=== PATIENT | male | born 1945 | race Caucasian/White ===

== ENCOUNTER 2016-08-05 09:22 | Outpatient (RCR) | payer MEDICARE ==
[~2016-08-05 09:22] MED LIST: APIX5TAB PO; ASPI-586 PO; ATOR10TA66 PO; CITA20TA12 PO; CITA40TA11 PO; HYDR-3730 PO; HYDR-3816 PO; LEVO500T2 PO; LEVO500T80 PO; LORA-877 PO; MELO15TA39 PO
[2016-11-04] MEDS ORDERED: OMEP20CA12 PO (10:35)
[2016-11-04] MEDS ORDERED: SUCR1TAB PO (10:35)
== END 2016-10-06 | disposition home or self-care (01) ==
LOC: CARD 09:22
PROVIDERS: ATTEND Internal Medicine Interventional Cardiology
DX: I63.9 Cerebral infarction, unspecified (principal); R06.09 Other forms of dyspnea
CPT/HCPCS: 93270

== ENCOUNTER → 2016-08-18 | Day surgery (SDC) | payer MEDICARE ==
[~2016-08-18] VITALS: Ht 185.4 cm; Wt 87.6 kg
[~2016-08-18] MED LIST changes: +ACET-93 PO; +ASPI-983 PO; +ATOR40TA PO; +ATOR40TA70 PO; +CLOP75TA28 PO; +CLOP75TA69 PO; +LIDOCAINE 1% INJ 20 ML (XYLOCAINE) VIAL ONE; +LISI-556 PO; +METO-333 PO; +MULT1TAB69 PO; +OMEP20CA12 PO; +OMEP20TA33 PO; +PANT40TA2 PO; +PANT40TA3 PO; +SUCR1TAB PO
[2016-08-18 13:07] VITALS: BP 146/96
--- NOTE | 2016-08-19 08:42 | PROCEDURE REPORT ---
PROCEDURE PHYSICIAN: LA JACKSON IMPLANTABLE LOOP RECORDER REPORT DATE OF PROCEDURE: 08/18/2016 REFERRING PHYSICIAN: Dr. Gregg Matthews INDICATION: CVA, cryptogenic in nature, suspicion/high risk for atrial fibrillation. Negative 30 day event monitor. 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 POSTOPERATIVE DIAGNOSES: Status post implantation of LINQ loop recorder. PROCEDURE DETAILS: The patient is 71-year-old gentleman who had presented with CVA. Work-up did not show any etiology for the CVA and the CVA was labeled as a cryptogenic. 30 day event monitor was placed due to a high risk for atrial fibrillation. The 30 day event monitor did not reveal any atrial fibrillation. Therefore for meterman monitoring of atrial fibrillation an implantable loop recorder was indicated. Informed consent was taken. All risks and complications were discussed at length. The patient was draped and prepped in the usual sterile fashion. Local anesthesia was with lidocaine, which was given in the substernal area close to the 4th intercostal space. The LINQ loop monitor was implanted according to the protocol. Steri-Strips were placed at the end of the procedure. There were no complications and the patient tolerated the procedure well. The device was interrogated with the voltage of 0.81 mV. ANESTHESIA: Local anesthesia with lidocaine. COMPLICATIONS: None. Contrast/fluoroscopy: None. CONCLUSION: 1. Successful implantation of LINQ loop recorder for cryptogenic stroke and surveillance of atrial fibrillation. 2. No complication and the patient tolerated the procedure well Job ID: [id number] Dictated Date: 08/18/2016 16:28:05 Community Dietitian Date: 08/19/2016 08:36:01 / immanuel TOLEDO
== END ==
LOC: CATH 12:32
PROVIDERS: ATTEND Internal Medicine Interventional Cardiology
DX: I63.9 Cerebral infarction, unspecified (principal); I48.91 Unspecified atrial fibrillation; Z79.899 Other long term (current) drug therapy; Z79.01 Long term (current) use of anticoagulants
CPT/HCPCS: 33282

== ENCOUNTER 2016-11-03 11:51 | Inpatient (IN) | payer MEDICARE ==
[2016-11-03] VITALS (16 sets, daily range): BP systolic 100–142; BP diastolic 57–86
[~2016-11-03] VITALS: Ht 182.9 cm; Wt 86.6 kg
[~2016-11-03 11:51] MED LIST changes: -ACET-93 PO; -ASPI-983 PO; -ATOR40TA PO; -ATOR40TA70 PO; -CLOP75TA28 PO; -CLOP75TA69 PO; -LIDOCAINE 1% INJ 20 ML (XYLOCAINE) VIAL ONE; -LISI-556 PO; -METO-333 PO; -MULT1TAB69 PO; -OMEP20CA12 PO; -OMEP20TA33 PO; -PANT40TA2 PO; -PANT40TA3 PO; -SUCR1TAB PO
[2016-11-03] MEDS ORDERED: ONDANSETRON 4 MG/2 ML (SDV) Z0FRAN ONE (12:30)
[2016-11-03] MEDS ORDERED: NS IV 1000 ML 1,000 ML ONE ×2 (12:31→13:42)
[2016-11-03] MEDS ORDERED: PANTOPRAZOLE 40 MG/10 ML (PROTONIX) VIAL ONE ×2 (12:31→12:33)
[2016-11-03 12:43] LABS: BASOPHILS % (AUTO) 0 % (0-10); EOSINOPHILS % (AUTO) 0 % (0-10); LYMPHOCYTES # (AUTO) 2.1 X 10^3 (1.0-4.0); LYMPHOCYTES % (AUTO) 14 % (12-44); MEAN CORPUSCULAR HEMOGLOBIN 32 PG (25-34); MEAN CORPUSCULAR HGB CONC 33 G/DL (32-36); MEAN CORPUSCULAR VOLUME 97 FL (80-99); MEAN PLATELET VOLUME 10.4 FL (7.4-10.4); MONOCYTES # (AUTO) 0.7 X 10^3 (0.0-1.0); MONOCYTES % (AUTO) 4 % (0-12); NEUTROPHILS # (AUTO) 12.8 X 10^3 (1.8-7.8); NEUTROPHILS % (AUTO) 82 % (42-75); PLATELET COUNT 249 10^3/uL (130-400); RED BLOOD COUNT 2.68 10^6/uL (4.35-5.85); RED CELL DISTRIBUTION WIDTH 14.1 % (10.0-14.5); WHITE BLOOD COUNT 15.6 10^3/uL (4.3-11.0)
[2016-11-03] MEDS ORDERED: ONDANSETRON 4 MG/2 ML (SDV) Z0FRAN IVP ONE (12:45)
[2016-11-03] MEDS ORDERED: PANTOPRAZOLE 40 MG/10 ML (PROTONIX) VIAL IV ONE (12:45)
[2016-11-03 12:49] LABS: INR 1.2 (0.8-1.4)
[2016-11-03 12:56] LABS: ALANINE AMINOTRANSFERASE 19 U/L (0-55); ALBUMIN 3.6 G/DL (3.2-4.5); ANION GAP 5 MMOL/L (5-14); ASPARTATE AMINO TRANSFERASE 65 U/L (5-34); BILIRUBIN,TOTAL 0.3 MG/DL (0.1-1.0); BLOOD UREA NITROGEN 43 MG/DL (7-18); BUN/CREATININE RATIO 37; CALCIUM 8.8 MG/DL (8.5-10.1); CARBON DIOXIDE 29 MMOL/L (21-32); CHLORIDE 108 MMOL/L (98-107); CREATININE SERUM 1.15 MG/DL (0.60-1.30); GFR ESTIMATED > 60; GLUCOSE 149 MG/DL (70-105); MAGNESIUM 1.8 MG/DL (1.8-2.4); POTASSIUM 4.3 MMOL/L (3.6-5.0); SODIUM 142 MMOL/L (135-145); TOTAL PROTEIN 5.9 G/DL (6.4-8.2)
[2016-11-03 13:05] LABS: TROPONIN I 9.21 NG/ML (<0.30)
--- NOTE | 2016-11-03 13:13 | Diagnostic Imaging Report ---
INDICATION: GI bleed, black stools. Comparison study: Chest from 07/08/2016. FINDINGS: Frontal view of the chest demonstrates lungs to be clear. The heart size and vascularity are normal. There are no pleural effusions. Previous bibasilar infiltrates are clear. personnel monitor is in place. IMPRESSION: There are no acute findings. Previous bibasilar infiltrates have cleared. Dictated by: Dictated on workstation # [id number]
[2016-11-03 13:17] LABS: ANISOCYTOSIS SLIGHT; BAND NEUTROPHILS 3 %; BASOPHILS % (MANUAL) 0 %; EOSINOPHILS % (MANUAL) 0 %; LYMPHOCYTES % (MANUAL) 20 %; NEUTROPHILS % (MANUAL) 74 %
--- NOTE | 2016-11-03 13:27 | ED GI ---
General Chief Complaint: Abdominal/GI Problems Stated Complaint: BLACK STOOL Source of Information: Patient Exam Limitations: No Limitations History of Present Illness Time Seen By Provider: 13:00 Initial Comments Here with report of onset of black stools 2-3 days ago. Seen by his primary care provider at that time and had his moped taken aspirin stopped. Today, early this morning, he had coffee-ground emesis. He was later able to eat a little bit and has not had return of emesis since. He still has black stools. He had a hemoglobin of 11.22 days ago for his primary care provider. He does complain of some bilateral shoulder pain as well as mid chest pain earlier that has gotten better now. Denies fever or chills. Does admit to weakness. Timing/Duration: 3-4 Days, Getting Worse, Intermittent Severity/Quality: Mild, Aching Location: Epigastric Radiation: Chest Activities at Onset: None Associated Symptoms: No Back Pain, Chest Pain, No Diaphoresis, No Fever/Chills , Nausea/Vomiting, No Shortness of Air, Weakness Allergies and Home Medications Allergies Coded Allergies: No Known Drug Allergies (Unverified , 07/01/16) Home Medications Atorvastatin Calcium 10 Mg Tablet, 10 MG PO HS, #30 Prescribed by: ALLEN MALLOY on 07/08/16 1154 Citalopram Hydrobromide 40 Mg Tablet, 40 MG PO DAILY, (Reported) Omeprazole 20 Mg Capsule.dr, 20 MG PO DAILY, (Reported) Review of Systems Constitutional: see HPI, No chills, No fever EENTM: No Symptoms Reported Respiratory: No Symptoms Reported Cardiovascular: See HPI, Chest Pain, Denies Edema Gastrointestinal: Abdominal Pain, Nausea, Rectal Bleeding, Vomiting Genitourinary: No Symptoms Reported Musculoskeletal: no symptoms reported Skin: no symptoms reported All Other Systems Reviewed Negative Unless Noted: Yes Past Ehoctyy-Lutxdj-Cauupr Hx Patient Social History Alcohol Use: Denies Use Recreational Drug Use: No Smoking Status: Unknown if Ever Smoked Recent Foreign Travel: No Contact w/Someone Who Travel: No Recent Hopitalizations: No Immunizations Up To Date Tetanus Booster (TDap): Less than 5yrs PED Vaccines UTD: No Date of Pneumonia Vaccine: Jul 01, 2013 Date of Influenza Vaccine: Jun 07, 2016 Seasonal Allergies Seasonal Allergies: Yes Surgeries HX Surgeries: Yes (HERNIA REPAIR) Surgeries: Abdominal Respiratory Hx Respiratory Disorders: No Cardiovascular Hx Cardiac Disorders: No Neurological Hx Neurological Disorders: No Reproductive System Hx Reproductive Disorders: No Genitourinary Hx Genitourinary Disorders: No Gastrointestinal Hx Gastrointestinal Disorders: No Musculoskeletal Hx Musculoskeletal Disorders: Yes Musculoskeletal Disorders: Arthritis Endocrine Hx Endocrine Disorders: No HEENT HX ENT Disorders: Yes Hearing Impairment: Bilateral Hearing Aide Cancer Hx Cancer: No Psychosocial Hx Psychiatric Problems: Yes Behavioral Health Disorders: Depression Integumentary HX Skin/Integumentary Disorder: No Blood Transfusions Hx Blood Disorders: No Family Medical History Family Medial History: Alcoholism G8 BROTHER, Onset:Unknown Cardiovascular disease 19 FATHER, , Age:89, Onset:Unknown G8 BROTHER, Onset:Unknown Completed stroke 19 MOTHER, , Age:86, Onset:Unknown FH: bladder cancer 19 MOTHER, , Age:86, Onset:Unknown FH: lupus G8 SISTER, , Age:75, Onset:Unknown FH: smoking G8 BROTHER, Onset:Unknown Parkinson's disease 19 MOTHER, , Age:86, Onset:Unknown Physical Exam Vital Signs VS - Last 72 Hours, by Label 11/03/16 11/03/16 11/03/16 11/03/16 11:55 11:55 13:59 14:14 Temp 97.9 99.8 99.5 Pulse 89 83 87 Resp 18 18 16 B/P (MAP) 111/71 120/76 122/86 Pulse Ox 97 99 99 96 O2 Delivery Nasal Cannula O2 Flow Rate 2.00 Capillary Refill : General Appearance: no apparent distress, thin HEENT: PERRL/EOMI, pharynx normal, pale conjunctivae (R), pale conjunctivae (L) Neck: full range of motion, supple Respiratory: lungs clear, normal breath sounds Cardiovascular: regular rate, rhythm, no murmur Gastrointestinal: non tender, soft Extremities: non-tender, normal inspection Back: normal inspection, no CVA tenderness, no vertebral tenderness Neurologic/Psychiatric: alert, oriented x 3 Skin: warm/dry, pallor Progress/Results/Core Measures Results/Orders Lab Results Laboratory Tests Test 11/03/16 12:22 Range/Units White Blood Count 15.6 H 4.3-11.0 10^3/uL Red Blood Count 2.68 L 4.35-5.85 10^6/uL Hemoglobin 8.6 L 13.3-17.7 G/DL Hematocrit 26 L 40-54 % Mean Corpuscular Volume 97 80-99 FL Mean Corpuscular Hemoglobin 32 25-34 PG Mean Corpuscular Hemoglobin Concent 33 32-36 G/DL Red Cell Distribution Width 14.1 10.0-14.5 % Platelet Count 249 130-400 10^3/uL Mean Platelet Volume 10.4 7.4-10.4 FL Neutrophils (%) (Auto) 82 H 42-75 % Lymphocytes (%) (Auto) 14 12-44 % Monocytes (%) (Auto) 4 0-12 % Eosinophils (%) (Auto) 0 0-10 % Basophils (%) (Auto) 0 0-10 % Neutrophils # (Auto) 12.8 H 1.8-7.8 X 10^3 Lymphocytes # (Auto) 2.1 1.0-4.0 X 10^3 Monocytes # (Auto) 0.7 0.0-1.0 X 10^3 Eosinophils # (Auto) 0.0 0.0-0.3 10^3/uL Basophils # (Auto) 0.0 0.0-0.1 10^3/uL Neutrophils % (Manual) 74 % Lymphocytes % (Manual) 20 % Monocytes % (Manual) 3 % Eosinophils % (Manual) 0 % Basophils % (Manual) 0 % Band Neutrophils 3 % Anisocytosis SLIGHT Prothrombin Time 15.0 H 12.2-14.7 SEC INR Comment 1.2 0.8-1.4 Activated Partial Thromboplast Time 32 24-35 SEC Sodium Level 142 135-145 MMOL/L Potassium Level 4.3 3.6-5.0 MMOL/L Chloride Level 108 H 98-107 MMOL/L Carbon Dioxide Level 29 21-32 MMOL/L Anion Gap 5 5-14 MMOL/L Blood Urea Nitrogen 43 H 7-18 MG/DL Creatinine 1.15 0.60-1.30 MG/DL Estimat Glomerular Filtration Rate > 60 BUN/Creatinine Ratio 37 Glucose Level 149 H 70-105 MG/DL Calcium Level 8.8 8.5-10.1 MG/DL Magnesium Level 1.8 1.8-2.4 MG/DL Total Bilirubin 0.3 0.1-1.0 MG/DL Aspartate Amino Transf (AST/SGOT) 65 H 5-34 U/L Alanine Aminotransferase (ALT/SGPT) 19 0-55 U/L Alkaline Phosphatase 49 40-136 U/L Troponin I 9.21 *H <0.30 NG/ML Total Protein 5.9 L 6.4-8.2 G/DL Albumin 3.6 3.2-4.5 G/DL My Orders Orders - ANAND VEGA MD Ondansetron Injection (Zofran Injectio (11/03/16 12:30) Ns Iv 1000 Ml (Sodium Chloride 0.9%) (11/03/16 12:31) Pantoprazole Injection (Protonix Injecti (11/03/16 12:31) Cbc With Automated Diff (11/03/16 12:31) Comprehensive Metabolic Panel (11/03/16 12:31) Magnesium (11/03/16 12:31) Protime With Inr (11/03/16 12:31) Partial Thromboplastin Time (11/03/16 12:31) Troponin I (11/03/16 12:31) Chest 1 View, Ap/Pa Only (11/03/16 12:31) Ekg Tracing (11/03/16 12:31) O2 (11/03/16 12:31) Monitor-Rhythm Ecg Trace Only (11/03/16 12:31) Ondansetron Injection (Zofran Injectio (11/03/16 12:45) Saline Lock/Iv-Start (11/03/16 12:31) Pantoprazole Injection (Protonix Injecti (11/03/16 12:45) Pantoprazole Injection (Protonix Injecti (11/03/16 12:33) Manual Differential (11/03/16 12:22) Red Cells Leukocytes Reduced (11/03/16 12:45) Type And Screen (11/03/16 12:45) Ns (Ivpb) (Sodium C... W/Pantoprazole In (11/03/16 13:30) Ns Iv 1000 Ml (Sodium Chloride 0.9%) (11/03/16 13:42) Medications Given in ED Current Medications Medications Dose Ordered Sig/Pa Route Start Time Stop Time Status Last Admin Dose Admin Ondansetron HCl 4 mg ONCE ONCE IVP 11/03/16 12:45 11/03/16 12:46 DC 11/03/16 12:38 4 MG Pantoprazole 80 mg ONCE ONCE IV 11/03/16 12:45 11/03/16 12:46 DC 11/03/16 12:39 80 MG Sodium Chloride 1,000 ml @ ud STK-MED ONCE .ROUTE 11/03/16 12:31 11/03/16 12:35 DC 11/03/16 12:38 999 MLS/HR Sodium Chloride 1,000 ml @ ud STK-MED ONCE .ROUTE 11/03/16 13:42 11/03/16 13:48 DC 11/03/16 13:49 0 MLS/HR Vital Signs/I&O Vital Sign - Last 12Hours 11/03/16 11/03/16 11/03/16 11/03/16 11:55 11:55 13:59 14:14 Temp 97.9 99.8 99.5 Pulse 89 83 87 Resp 18 18 16 B/P (MAP) 111/71 120/76 122/86 Pulse Ox 97 99 99 96 O2 Delivery Nasal Cannula O2 Flow Rate 2.00 Progress Note : Progress Note Seen and evaluated. IV 2, labs, EKG and chest x-ray ordered. Troponin noted to be markedly elevated. Type and cross for 2 units done. I did discuss the case with Dr. Walton at 1300 and patient was seen with him at that time. He will admit the patient to the ICU, inpatient status. Dr. Kc was also consulted. He saw the patient at 1440. Patient does have findings of non-ST elevation VT. 2 units of blood transfusion was initiated in the ER and will be completed in the ICU. Patient will get upper endoscopy's afternoon and potentially lower endoscopy as needed per Dr. Rae. Patient denies any current chest pain. We were unable to do aspirin due to GI bleed. Both admitting physicians agreed. Patient stable with blood administration. Admit, inpatient status. Patient and family agree with plan. ECG Initial ECG Impression Date: Nov 03, 2016 Initial ECG Impression Time: 12:29 Initial ECG Rate: 86 Initial ECG Rhythm: Normal Sinus Comment Sinus rhythm with normal axis. T-wave under mild is in the anterior lateral leads. No evidence of ST elevation VT. No previous available for comparison. Interpreted by me. EKG reviewed by Dr. Kc Diagnostic Imaging Diagonstic Imaging: Xray Plain Films/CT/US/NM/MRI: chest Comments VIA [facility]. [place], [place] NAME: EVA DILLARD [facility] REC#: [id number] PT STATUS: REG ER : 1945 PHYSICIAN: ANAND VEGA MD ADMIT DATE: 11/03/16/ER Draft Date of Exam:11/03/16 CHEST 1 VIEW, AP/PA ONLY INDICATION: GI bleed, black stools. Comparison study: Chest from 07/08/2016. FINDINGS: Frontal view of the chest demonstrates lungs to be clear. The heart size and vascularity are normal. There are no pleural effusions. Previous bibasilar infiltrates are clear. electrical prospector is in place. IMPRESSION: There are no acute findings. Previous bibasilar infiltrates have cleared. Dictated on workstation # [id number] Dict: 11/03/16 1310 Trans: 11/03/16 1313 MIKE [id number] Interpreted by: ERIN LUNA MD Electronically signed by: Departure Impression Impression: Primary Impression: Upper GI bleed Additional Impression: Non-ST elevation VT (NSTEMI) Departure-Patient Inst. Referrals: ALFIE CASTAÑEDA MD (PCP/Family) Primary Care Physician ANAND VEGA MD Nov 03, 2016 13:27
[2016-11-03] MEDS ORDERED: PANTOPRAZOLE INJECTION 200 MG in NS (IVPB) 50 ML IV SCH (13:30)
[2016-11-03] MEDS ORDERED: OMEP20TA33 PO (13:57)
--- NOTE | 2016-11-03 14:36 | Consultation-Cardiology ---
HPI-Cardiology Cardiology Consultation: Date of Consultation 11/03/16 Date of Admission Attending Physician Chito Walton DO Admitting Physician Gregg Matthews MD Consulting Physician Liliana KC MD HPI: Chief Complaint: Upper GI bleeding This is a 71-year-old gentleman with previous history of stroke. Since the stroke was labeled cryptogenic stroke with decided to treat him for atrial fibrillation with oral anticoagulation therapy with Eliquis. Implantable loop recorder was placed. However after frequent device interrogations, no episodes of atrial fibrillation were noted. Therefore Eliquis was discontinued a while back. He was continued on aspirin. He was taking meloxicam for joint pain. On Monday he started to have black stools. Meloxicam was discontinued. However today he started to have coffee ground emesis. He also complained of bilateral shoulder discomfort and epigastric discomfort. Troponins are positive. Review of Systems-Cardiology Review of Systems Constitutional: No As described under HPI, No no symptoms reported, No chills, No fever, No lightheadedness, No malaise, No tiredness, No weight loss, No weight gain, No other Eyes: No As described under HPI, No no symptoms reported, No blindness, No blurred vision, No contact lenses, No drainage, No decreased acuity, No foreign body sensation, No glasses, No inflammation, No pain, No photophobia, No previous injury, No shadows, No tunnel vision, No other, No vision change Ears/Nose/Throat: No As described under HPI, No no symptoms reported, No chronic hearing loss, No epistaxis, No ear discharge, No ear pain, No loose teeth, No mouth pain, No mouth swelling, No nasal drainage, No nose pain, No recent hearing loss, No throat pain, No throat swelling, No ulcerations, No other Respiratory: No no symptoms reported, No As described under HPI, No cough, No orthopnea, No shortness of breath, No SOB with excertion, No SOB at rest, No stridor, No wheezing, No other Cardiovascular: No no symptoms reported, No As described under HPI, No chest pain, No edema, No irregular heart rate, No lightheadedness, No palpitations, No syncope, No other Gastrointestinal: As described under HPI, abdominal pain Genitourinary: No no symptoms reported, No As described under HPI, No burning, No dysuria, No discharge, No frequency, No flank pain, No hematuria, No incontinence, No pain, No urgency, No other, No urine frequency changes, No urine coloration changes Musculoskeletal: joint pain Skin: No no symptoms reported, No As described under HPI, No change in color, No change in hair/nails, No dryness, No lesions, No lumps, No rash, No other, No skin related problems, No ulcerations, No rash on exposed areas, No ulcerations on exposed areas Psychiatric/Neurological: No As described under HPI, No anxiety, No depression , No emotional problems, No focal weakness, No headache, No no symptoms reported , No numbness, No other, No pre-existing deficit, No seizure, No syncope, No tingling, No tremors, No weakness Hematologic: anemia STO-Oamjdy-Weeuqu Hx Patient Social History Alcohol Use: Denies Use Recreational Drug Use: No Smoking Status: Never a Smoker Recent Foreign Travel: No Recent Infectious Disease Expo: No Immunizations Up To Date Tetanus Booster (TDap): Less than 5yrs Date of Pneumonia Vaccine: Jul 01, 2013 Date of Influenza Vaccine: Jun 07, 2016 Past Medical History PMH As described under Assessment. Family Medical History Family History: Alcoholism G8 BROTHER, Onset:Unknown Cardiovascular disease 19 FATHER, , Age:89, Onset:Unknown G8 BROTHER, Onset:Unknown Completed stroke 19 MOTHER, , Age:86, Onset:Unknown FH: bladder cancer 19 MOTHER, , Age:86, Onset:Unknown FH: lupus G8 SISTER, , Age:75, Onset:Unknown FH: smoking G8 BROTHER, Onset:Unknown Parkinson's disease 19 MOTHER, , Age:86, Onset:Unknown Allergies and Home Medications Allergies Coded Allergies: No Known Drug Allergies (Unverified , 07/01/16) Home Medications Atorvastatin Calcium 10 Mg Tablet, 10 MG PO HS, #30 Prescribed by: ALLEN MALLOY on 07/08/16 1154 Citalopram Hydrobromide 40 Mg Tablet, 40 MG PO DAILY, (Reported) Omeprazole 20 Mg Capsule.dr, 20 MG PO DAILY, (Reported) Physical Exam-Cardiology Physical Exam Vital Signs/I&O Vital Sign - Last 12Hours 11/03/16 11/03/16 11/03/16 11/03/16 11:55 11:55 13:59 14:14 Temp 97.9 99.8 99.5 Pulse 89 83 87 Resp 18 18 16 B/P (MAP) 111/71 120/76 122/86 Pulse Ox 97 99 99 96 O2 Delivery Nasal Cannula O2 Flow Rate 2.00 Capillary Refill : Less Than 3 Seconds Constitutional: No appears stated age, No AAO x 3, No apparent distress, No PERRL, No well-developed, No well-nourished, No other HEENT: No PERRL, No normal ENT inspection, No TMs normal, No pharynx normal, No scleral icterus (R), No scleral icterus (L), pale conjunctivae (R), No pale conjunctivae (L), No photophobia, No TM abnormal (R), No TM abnormal (L), No pharyngeal erythema, No tonsillar exudate, No other, No discharge, No EOMI, No hearing is well preserved, No hard of hearing, No oral hygience is good, No ulceration, No xanthelasmas are seen Neck: No non-tender, No full range of motion, No supple, No normal inspection, No carotid bruit, No limited range of motion, No lymphadenopathy (R), No lymphadenopathy (L), No tender lateral, No tender midline, No thyromegaly, No other, No carotid pulses are 2 + bilaterally, No with good upstrokes Respiratory: No accessory muscle use, No respiratory distress, No chest tender , No chest expansion is symmetric, No chest is bilaterally symmetric, No lungs clear to percussion, No lungs clear to auscultation, No crackles, No rhonchi, No rales, No stridor, No wheezing, No pleural rub, No other Cardiovascular: No regular rate-rhythm, No irregularly irregular, No extra beats, No parasternal heave is noted, No JVD, No edema, No bradycardia, No tachycardia, No point of maximal impulse, No cardiac thrills are palpable, No S1 and S2, No gallop/S3, No gallop/S4, No diastolic murmur, No systolic murmur, No friction rub, No click, No other Gastrointestinal: No tender, No soft, No round, No distended, No pulsatile mass , No organomegaly, No guarding, No rebound, No tenderness, No hernia, No mass, No audible bowel sounds, No abnormal bowel sounds, No abdominal bruits, No spleenomegaly, No other Rectal: deferred Extremities: No normal range of motion, No non-tender, No normal inspection, No pedal edema, No calf tenderness, No normal capillary refill, No pelvis stable , No calf tenderness, No inflammation, No pedal edema, No slow capillary refill , No swelling, No other, No abrasion, No clubbing, No cyanosis, No ecchymosis, No laceration, No no lower extremity edema bilateral, No significant edema, No tenderness, No wound Neurologic/Psychiatric: No desulfurizer operator II-XII nml as tested, No no motor/sensory deficits, No alert, No normal mood/affect, No oriented x 3, No abnormal cerebellar tests, No abnormal desulfurizer operator II-XII, No abnormal gait, No aphasia, No EOM palsy, No facial droop, No motor weakness, No sensory deficit, No depressed affect, No disoriented x 3, No other, No grossly intact, No power is 5/5 both on sides Skin: No normal color, No warm/dry, No cyanosis, No cool, No diaphoresis, No damp, No ecchymosis, No jaundice, No mottled, No pallor, No rash, No tattoos/ piercings, No ulcerations, No rash on exposed areas, No ulcerations on exposed areas, No other Data Review Labs Laboratory Tests 11/03/16 12:22: White Blood Count 15.6H, Red Blood Count 2.68L, Hemoglobin 8.6L, Hematocrit 26L , Mean Corpuscular Volume 97, Mean Corpuscular Hemoglobin 32, Mean Corpuscular Hemoglobin Concent 33, Red Cell Distribution Width 14.1, Platelet Count 249, Mean Platelet Volume 10.4, Neutrophils (%) (Auto) 82H, Lymphocytes (%) (Auto) 14 , Monocytes (%) (Auto) 4, Eosinophils (%) (Auto) 0, Basophils (%) (Auto) 0, Neutrophils # (Auto) 12.8H, Lymphocytes # (Auto) 2.1, Monocytes # (Auto) 0.7, Eosinophils # (Auto) 0.0, Basophils # (Auto) 0.0, Neutrophils % (Manual) 74, Lymphocytes % (Manual) 20, Monocytes % (Manual) 3, Eosinophils % (Manual) 0, Basophils % (Manual) 0, Band Neutrophils 3, Anisocytosis SLIGHT, Prothrombin Time 15.0H, INR Comment 1.2, Activated Partial Thromboplast Time 32, Sodium Level 142, Potassium Level 4.3, Chloride Level 108H, Carbon Dioxide Level 29, Anion Gap 5, Blood Urea Nitrogen 43H, Creatinine 1.15, Estimat Glomerular Filtration Rate > 60, BUN/Creatinine Ratio 37, Glucose Level 149H, Calcium Level 8.8, Magnesium Level 1.8, Total Bilirubin 0.3, Aspartate Amino Transf (AST /SGOT) 65H, Alanine Aminotransferase (ALT/SGPT) 19, Alkaline Phosphatase 49, Troponin I 9.21*H, Total Protein 5.9L, Albumin 3.6 ECG Impression ECG Initial ECG Rhythm: Normal Sinus Comment Mild ST downsloping are noted. Prolonged QT interval. A/P-Cardiology Assessment/Admission Diagnosis Upper GI bleed. Left shoulder discomfort with significantly positive troponin. Plan Upper GI bleeding defer treatment to Gen. surgery. Complains of left shoulder discomfort with positive troponin. This may be secondary to demand ischemia. Agree with treating anemia with blood transfusion and finding the source of bleeding and treating it with upper endoscopy. No antiplatelet or anticoagulation agents. I discussed at length with the patient and spouse. We will continue to follow. Thank you for your consultation. Please call me if you have any questions. Cain Kc MD, FACP, FACC, FSCAI, FHRS, CCDS Interventional Cardiology Cardiac Electrophysiology Vascular Medicine and Endovascular Interventions Liliana KC MD Nov 03, 2016 2:36 pm
[2016-11-03] MEDS ORDERED: OMEP20CA12 PO (14:46)
[2016-11-03] MEDS ORDERED: ONDANSETRON 4 MG/2 ML (SDV) Z0FRAN IV PRN (15:30)
[2016-11-03] MEDS ORDERED: CATHETER FLUSH 10 ML SYR IV PRN (15:30)
[2016-11-03] MEDS ORDERED: MULT1TAB69 PO (15:34)
[2016-11-03] MEDS ORDERED: ACET-93 PO (15:34)
[2016-11-03] MEDS ORDERED: EPINEPHrine INJECTION 1 MG/ML AMP ONE (16:40)
[2016-11-03] MEDS ORDERED: ACETAMINOPHEN 650 MG SUPP (TYLENOL) ONE (16:41)
[2016-11-03] MEDS ORDERED: ACETAMINOPHEN 650 MG SUPP (TYLENOL) PR PRN (16:45)
--- NOTE | 2016-11-03 16:45 | History & Physical-Surgical ---
History of Present Illness History of Present Illness Reason for visit/HPI Pt is a 71 yo male who presented with black tarry stools and coffee ground emesis. He also complained of "heartburn" going through to his back and some shoulder pain. He was initially seen right when he came in to the ER, but just now putting note in. HPI: Here with report of onset of black stools 2-3 days ago. Seen by his primary care provider at that time and had his meloxicam and aspirin stopped. Today, early this morning, he had coffee-ground emesis. He was later able to eat a little bit and has not had return of emesis since. He still has black stools. He had a hemoglobin of 11.2 2 days ago for his primary care provider; in the ER it was 8.6. He does complain of some bilateral shoulder pain as well as mid chest pain earlier that has gotten better now. Denies fever or chills. Does admit to weakness. Timing/Duration: 3-4 Days, Getting Worse, Intermittent Severity/Quality: Mild, Aching. Rating it as a 3-4 out of 10 on a 1-10 scale. Location: Epigastric Radiation: Chest Activities at Onset: None Associated Symptoms: No Back Pain, Chest Pain, No Diaphoresis, No Fever/Chills , Nausea/Vomiting, No Shortness of Air, Weakness Date of Admission Nov 03, 2016 at 14:20 I consulted on this patient on 11/03/16 16:40 Attending Physician Chito Walton DO Admitting Physician Gregg Matthews MD Consult Allergies and Home Medications Allergies Coded Allergies: No Known Drug Allergies (Unverified , 07/01/16) Home Medications Acetaminophen 500 Mg Tablet, 1,000 MG PO Q6H PRN for MILD PAIN, (Reported) TAKES 2 (500 MG) TABLETS Citalopram Hydrobromide 40 Mg Tablet, 40 MG PO DAILY, (Reported) Multivitamin 1 Each Tablet, 1 TAB PO DAILY, (Reported) Omeprazole 20 Mg Capsule.dr, 20 MG PO DAILY, (Reported) Past Nyycqbv-Rqflad-Ykxsfr Hx Patient Social History Alcohol Use: Denies Use Recreational Drug Use: No Smoking Status: Never a Smoker Recent Foreign Travel: No Contact w/Someone Who Travel: No Recent Infectious Disease Expo: No Recent Hopitalizations: Yes Physical Abuse Screen: No Sexual Abuse: No Immunizations Up To Date Tetanus Booster (TDap): Less than 5yrs PED Vaccines UTD: No Date of Pneumonia Vaccine: Jul 01, 2013 Date of Influenza Vaccine: Jun 07, 2016 Seasonal Allergies Seasonal Allergies: Yes Surgeries HX Surgeries: Yes (HERNIA REPAIR, link) Surgeries: Abdominal Respiratory Hx Respiratory Disorders: No Cardiovascular Hx Cardiac Disorders: Yes Cardiac Disorders: Atrial Fibrillation (never proven, even with implantable recorder) Neurological Hx Neurological Disorders: No Reproductive System Hx Reproductive Disorders: No Genitourinary Hx Genitourinary Disorders: No Genitourinary Disorders: Benign Prostatic Hyperpl Gastrointestinal Hx Gastrointestinal Disorders: Yes Gastrointestinal Disorders: Ulcer Musculoskeletal Hx Musculoskeletal Disorders: Yes Musculoskeletal Disorders: Arthritis Endocrine Hx Endocrine Disorders: No HEENT HX ENT Disorders: Yes HEENT Disorders: Cataract Hearing Impairment: Hard of Hearing Cancer Hx Cancer: No Psychosocial Hx Psychiatric Problems: Yes Behavioral Health Disorders: Depression Integumentary HX Skin/Integumentary Disorder: No Blood Transfusions Hx Blood Disorders: No Adverse Reaction to a Blood Tr: No Family Medical History Significant Family History: CAD Over 55 Years Old Family Medial History: Alcoholism G8 BROTHER, Onset:Unknown Cardiovascular disease 19 FATHER, , Age:89, Onset:Unknown G8 BROTHER, Onset:Unknown Completed stroke 19 MOTHER, , Age:86, Onset:Unknown FH: bladder cancer 19 MOTHER, , Age:86, Onset:Unknown FH: lupus G8 SISTER, , Age:75, Onset:Unknown FH: smoking G8 BROTHER, Onset:Unknown Parkinson's disease 19 MOTHER, , Age:86, Onset:Unknown Constitutional: No chills, No diaphoresis, malaise, weakness EENTM: hearing loss, No blurred vision, No epistaxis, No throat pain, No throat swelling Respiratory: No cough, No dyspnea on exertion, No hemoptysis, No short of breath Cardiovascular: No chest pain, No edema, No palpitations Gastrointestinal: hematemesis, heartburn, No jaundice, melena Musculoskeletal: joint pain, joint swelling, muscle stiffness Skin: No change in color, No change in hair/nails Psychiatric/Neurological: Denies Anxiety, Denies Depressed Physical Exam Vital Signs Vital Sign - Last 12Hours 11/03/16 11:55 Temp 97.9 Pulse 89 Resp 18 B/P (MAP) 111/71 Pulse Ox 97 O2 Delivery Nasal Cannula O2 Flow Rate 2.00 Capillary Refill : Less Than 3 Seconds General Appearance: WD/WN, Mild Distress Eyes: Bilateral Eye Conjunctivae Pale, Bilateral Eye EOMI, Bilateral Eye PERRL HEENT: Pharynx Normal, No Scleral Icterus (L), No Scleral Icterus (R) Neck: Normal Inspection, Non Tender, Supple Respiratory: Lungs Clear, Normal Breath Sounds, No Accessory Muscle Use, No Respiratory Distress Cardiovascular: Regular Rate, Rhythm, No Edema, No Murmur Gastrointestinal: Normal Bowel Sounds, No Organomegaly, No Pulsatile Mass, Non Tender, Soft Rectal: Deferred Extremity: Non Tender, No Calf Tenderness, Slow Capillary Refill Neurologic/Psychiatric: Alert, Oriented x3, No Motor/Sensory Deficits, Normal Mood/Affect, executive account manager II-XII Norm as Tested Skin: Warm/Dry, Pallor Lymphatic: No Adenopathy (neck, axilla or groin) Data Review Labs Laboratory Tests 11/03/16 12:22: White Blood Count 15.6H, Red Blood Count 2.68L, Hemoglobin 8.6L, Hematocrit 26L , Mean Corpuscular Volume 97, Mean Corpuscular Hemoglobin 32, Mean Corpuscular Hemoglobin Concent 33, Red Cell Distribution Width 14.1, Platelet Count 249, Mean Platelet Volume 10.4, Neutrophils (%) (Auto) 82H, Lymphocytes (%) (Auto) 14 , Monocytes (%) (Auto) 4, Eosinophils (%) (Auto) 0, Basophils (%) (Auto) 0, Neutrophils # (Auto) 12.8H, Lymphocytes # (Auto) 2.1, Monocytes # (Auto) 0.7, Eosinophils # (Auto) 0.0, Basophils # (Auto) 0.0, Neutrophils % (Manual) 74, Lymphocytes % (Manual) 20, Monocytes % (Manual) 3, Eosinophils % (Manual) 0, Basophils % (Manual) 0, Band Neutrophils 3, Anisocytosis SLIGHT, Prothrombin Time 15.0H, INR Comment 1.2, Activated Partial Thromboplast Time 32, Sodium Level 142, Potassium Level 4.3, Chloride Level 108H, Carbon Dioxide Level 29, Anion Gap 5, Blood Urea Nitrogen 43H, Creatinine 1.15, Estimat Glomerular Filtration Rate > 60, BUN/Creatinine Ratio 37, Glucose Level 149H, Calcium Level 8.8, Magnesium Level 1.8, Total Bilirubin 0.3, Aspartate Amino Transf (AST /SGOT) 65H, Alanine Aminotransferase (ALT/SGPT) 19, Alkaline Phosphatase 49, Troponin I 9.21*H, Total Protein 5.9L, Albumin 3.6 11/03/16 14:25: Hemoglobin 8.2L, Hematocrit 26L Assessment/Plan Assessment/Plan Assessment/Plan 1. Melena 2. Hematemesis 3. Anemia 4. Elevated Troponin - 9 - Cardiology consult obtained. ASA stopped, Protonix drip started. Pt receiving 2 units of PRBC's. Crossed and held 2 more. Pt states he had a colonoscopy over 10 years ago and thinks they found nothing. IV Fluids -Plan is to do EGD and check for any upper bleeding, possible biopsy. If nothing is found then will prep him for colonoscopy, to try and find source of bleeding. Discussed the risks and benefits of EGD including but not limited to pain, bleeding, infection and even possible esophageal rupture. All questions answered to his satisfaction. Will do EGD in the ICU to monitor pt closer. Clinical Quality Measures DVT/VTE Risk/Contraindication: Risk Factor Score Per Nursin RFS Level Per Nursing on Admit: 4+=Very High CHITO WALTON DO Nov 03, 2016 16:45
[2016-11-03] MEDS: NS IV 1000 ML 1,000 ML IV SCH ×2 (17:11→23:30)
[2016-11-03] MEDS: NS IV SCH ×2 (17:11)
[2016-11-03] MEDS: PANTOPRAZOLE IV SCH ×2 (17:11)
[2016-11-03] MEDS ORDERED: MIDAZOLAM 5 MG/5 ML (VERSED) VIAL ONE (19:07)
[2016-11-03] MEDS ORDERED: proPOfol 200 MG/20 ML (DIPRIVAN) VIAL IV ONE (19:07)
--- NOTE | 2016-11-03 19:48 | Progress Note-Post Operative ---
Post-Operative Progess Note Surgeon (s)/Lift Manager (s) Surgeon MAHESH BAUMANN DO Lift Manager: none Pre-Operative Diagnosis hematemesis, melena, anema Post-Operative Diagnosis Duodenal ulcer - no active bleed Post-Op Procedure Note Date of Procedure: Nov 03, 2016 Name of Procedure Performed: EGD with biopsy Description of the Procedure: egd w/bx Findings of the Procedure duodenal ulcer Anesthesia Type IV sedation with propofol by BAIT MAKER Estimated blood loss (mL): scant Specimen(s) collected/removed duodenal bx MAHESH BAUMANN DO Nov 03, 2016 19:48
[2016-11-03] MEDS ORDERED: HURRICAINE EXT TUBE (BENZOCAINE) XX PRN (20:15)
[2016-11-03] MEDS: SUCRALFATE 1 GM (CARAFATE) TAB PO SCH (20:43)
[2016-11-04] VITALS (26 sets, daily range): BP systolic 100–137; BP diastolic 60–96
[2016-11-04] MEDS: NS IV 1000 ML 1,000 ML IV SCH ×3 (03:00→16:06)
[2016-11-04 05:10] LABS: ALANINE AMINOTRANSFERASE 24 U/L (0-55); ALBUMIN 2.8 G/DL (3.2-4.5); ANION GAP 8 MMOL/L (5-14); ASPARTATE AMINO TRANSFERASE 116 U/L (5-34); BILIRUBIN,TOTAL 0.6 MG/DL (0.1-1.0); BLOOD UREA NITROGEN 28 MG/DL (7-18); BUN/CREATININE RATIO 33; CALCIUM 7.6 MG/DL (8.5-10.1); CARBON DIOXIDE 22 MMOL/L (21-32); CHLORIDE 113 MMOL/L (98-107); CREATININE SERUM 0.86 MG/DL (0.60-1.30); GFR ESTIMATED > 60; GLUCOSE 117 MG/DL (70-105); MAGNESIUM 1.7 MG/DL (1.8-2.4); PHOSPHORUS 2.8 MG/DL (2.3-4.7); POTASSIUM 3.8 MMOL/L (3.6-5.0); SODIUM 143 MMOL/L (135-145); TOTAL PROTEIN 4.5 G/DL (6.4-8.2)
[2016-11-04 05:42] LABS: BASOPHILS % (AUTO) 0 % (0-10); EOSINOPHILS % (AUTO) 0 % (0-10); LYMPHOCYTES # (AUTO) 2.1 X 10^3 (1.0-4.0); LYMPHOCYTES % (AUTO) 23 % (12-44); MEAN CORPUSCULAR HEMOGLOBIN 31 PG (25-34); MEAN CORPUSCULAR HGB CONC 33 G/DL (32-36); MEAN CORPUSCULAR VOLUME 94 FL (80-99); MEAN PLATELET VOLUME 10.3 FL (7.4-10.4); MONOCYTES # (AUTO) 0.8 X 10^3 (0.0-1.0); MONOCYTES % (AUTO) 9 % (0-12); NEUTROPHILS # (AUTO) 6.3 X 10^3 (1.8-7.8); NEUTROPHILS % (AUTO) 68 % (42-75); PLATELET COUNT 150 10^3/uL (130-400); RED BLOOD COUNT 2.59 10^6/uL (4.35-5.85); RED CELL DISTRIBUTION WIDTH 15.9 % (10.0-14.5); WHITE BLOOD COUNT 9.3 10^3/uL (4.3-11.0)
[2016-11-04] MEDS: POTASSIUM CL 10MEQ/50ML IVPB 50 ML IV SCH (06:00)
[2016-11-04] MEDS: KCL 20 MEQ TAB (K-DUR) PO SCH (06:00)
[2016-11-04] MEDS: MAGNESIUM 1 GM/100 ML IVPB 100 ML IV SCH ×3 (06:00→07:51)
[2016-11-04] MEDS: SUCRALFATE 1 GM (CARAFATE) TAB PO SCH ×4 (06:39→21:20)
--- NOTE | 2016-11-04 07:36 | Diagnostic Imaging Report ---
Portable upright radiograph of the chest. INDICATION: Followup GI bleed. COMPARISON: 11/03/2016. FINDINGS: There is elevation of the right hemidiaphragm. There is a pulse generator projecting over the left chest. The heart size is normal. No effusion or pneumothorax. The mediastinum and meredith appear unremarkable. IMPRESSION: Stable elevated right hemidiaphragm. No acute process. Dictated by: Dictated on workstation # [id number]
--- NOTE | 2016-11-04 10:32 | Progress Note ---
Subjective Subjective/Events-last exam Pt seen and examined, denies abdominal or chest pain. Pt states he is hungry, maybe feels a little weak...but better than yesterday. Pt has not had any more coffee ground emesis, he has not had a BM either. Pt received another unit of PRBC last night. Review of Systems General: No Chills, No Night Sweats, Fatigue, Appetite (very hungry) HEENT: No Head Aches, No Dysphasia Pulmonary: No Dyspnea, No Cough Cardiovascular: No: Chest Pain, Palpitations Gastrointestinal: No: Abdominal Pain, Nausea, Vomiting Objective Exam Vital Signs Date Time Temp Pulse Resp B/P (MAP) Pulse Ox O2 Delivery O2 Flow Rate FiO2 11/04/16 07:18 96 2.00 11/04/16 07:00 78 11/04/16 06:00 75 28 117/77 96 Room Air 11/04/16 05:01 98.8 77 20 123/89 98 11/04/16 05:00 75 17 123/89 Room Air 11/04/16 04:00 78 8 132/81 Room Air 11/04/16 03:04 99.2 75 18 119/89 97 11/04/16 03:00 75 6 119/89 Room Air 11/04/16 02:49 99.1 77 18 120/72 99 11/04/16 02:49 99.1 77 18 120/72 99 11/04/16 02:00 76 10 120/72 Room Air 11/04/16 01:00 73 24 113/68 Room Air 11/04/16 01:00 74 11/04/16 00:00 99 11/04/16 00:00 84 24 137/83 Room Air 11/03/16 23:00 84 10 100/57 Room Air 11/03/16 22:00 91 21 105/64 Room Air 11/03/16 21:11 2.00 11/03/16 21:00 85 14 120/71 Nasal Cannula 2.00 11/03/16 20:30 99.7 11/03/16 20:28 99.7 79 20 126/76 99 Nasal Cannula 2.00 11/03/16 20:00 84 38 132/77 Nasal Cannula 2.00 11/03/16 20:00 98 2.00 11/03/16 19:05 100.6 86 14 142/80 98 11/03/16 19:00 89 16 116/81 Nasal Cannula 2.00 11/03/16 19:00 88 11/03/16 18:00 88 27 108/67 96 Room Air 11/03/16 17:20 100.2 86 16 121/74 97 11/03/16 17:00 89 17 121/74 94 Room Air 11/03/16 16:59 100.4 86 12 135/86 11/03/16 16:56 100.7 11/03/16 16:30 100.7 88 14 129/74 97 11/03/16 16:15 97 11/03/16 16:00 85 15 135/86 95 Room Air 11/03/16 15:36 98 11/03/16 15:15 100.7 Room Air 11/03/16 15:15 97 11/03/16 14:56 99.5 85 16 97 2.00 11/03/16 14:14 99.5 87 16 122/86 96 11/03/16 13:59 99.8 83 18 120/76 99 11/03/16 11:55 99 Nasal Cannula 2.00 11/03/16 11:55 97.9 89 18 111/71 97 I & O 11/04/16 07:00 Intake Total 3800 ml Output Total 1150 ml Balance 2650 ml Capillary Refill : Less Than 3 Seconds General Appearance: No Apparent Distress, WD/WN HEENT: Pharynx Normal, No Scleral Icterus (L), No Scleral Icterus (R) Neck: Normal Inspection, Non Tender, Supple Respiratory: Lungs Clear, Normal Breath Sounds, No Accessory Muscle Use, No Respiratory Distress Cardiovascular: Regular Rate, Rhythm, No Edema, No Murmur Gastrointestinal: non tender, soft Extremity: Non Tender, No Calf Tenderness, Slow Capillary Refill Neurologic/Psychiatric: Alert, Oriented x3, No Motor/Sensory Deficits, Normal Mood/Affect, emergency communications operator II-XII Norm as Tested Skin: Warm/Dry, Pallor Lymphatic: No Adenopathy (neck, axilla or groin) Results Lab Laboratory Tests 11/03/16 12:22: White Blood Count 15.6H, Red Blood Count 2.68L, Hemoglobin 8.6L, Hematocrit 26L , Mean Corpuscular Volume 97, Mean Corpuscular Hemoglobin 32, Mean Corpuscular Hemoglobin Concent 33, Red Cell Distribution Width 14.1, Platelet Count 249, Mean Platelet Volume 10.4, Neutrophils (%) (Auto) 82H, Lymphocytes (%) (Auto) 14 , Monocytes (%) (Auto) 4, Eosinophils (%) (Auto) 0, Basophils (%) (Auto) 0, Neutrophils # (Auto) 12.8H, Lymphocytes # (Auto) 2.1, Monocytes # (Auto) 0.7, Eosinophils # (Auto) 0.0, Basophils # (Auto) 0.0, Neutrophils % (Manual) 74, Lymphocytes % (Manual) 20, Monocytes % (Manual) 3, Eosinophils % (Manual) 0, Basophils % (Manual) 0, Band Neutrophils 3, Anisocytosis SLIGHT, Prothrombin Time 15.0H, INR Comment 1.2, Activated Partial Thromboplast Time 32, Sodium Level 142, Potassium Level 4.3, Chloride Level 108H, Carbon Dioxide Level 29, Anion Gap 5, Blood Urea Nitrogen 43H, Creatinine 1.15, Estimat Glomerular Filtration Rate > 60, BUN/Creatinine Ratio 37, Glucose Level 149H, Calcium Level 8.8, Magnesium Level 1.8, Total Bilirubin 0.3, Aspartate Amino Transf (AST /SGOT) 65H, Alanine Aminotransferase (ALT/SGPT) 19, Alkaline Phosphatase 49, Troponin I 9.21*H, Total Protein 5.9L, Albumin 3.6 11/03/16 14:25: Hemoglobin 8.2L, Hematocrit 26L 11/03/16 20:41: Hemoglobin 8.6L, Hematocrit 26L 11/04/16 00:45: Hemoglobin 7.5L, Hematocrit 23L 11/04/16 03:40: Sodium Level 143, Potassium Level 3.8, Chloride Level 113H, Carbon Dioxide Level 22, Anion Gap 8, Blood Urea Nitrogen 28H, Creatinine 0.86, Estimat Glomerular Filtration Rate > 60, BUN/Creatinine Ratio 33, Glucose Level 117H, Calcium Level 7.6L, Phosphorus Level 2.8, Magnesium Level 1.7L, Total Bilirubin 0.6, Aspartate Amino Transf (AST/SGOT) 116H, Alanine Aminotransferase (ALT/SGPT ) 24, Alkaline Phosphatase 40, Total Protein 4.5L, Albumin 2.8L 11/04/16 05:35: White Blood Count 9.3, Red Blood Count 2.59L, Hemoglobin 8.0L, Hematocrit 24L, Mean Corpuscular Volume 94, Mean Corpuscular Hemoglobin 31, Mean Corpuscular Hemoglobin Concent 33, Red Cell Distribution Width 15.9H, Platelet Count 150, Mean Platelet Volume 10.3, Neutrophils (%) (Auto) 68, Lymphocytes (%) (Auto) 23 , Monocytes (%) (Auto) 9, Eosinophils (%) (Auto) 0, Basophils (%) (Auto) 0, Neutrophils # (Auto) 6.3, Lymphocytes # (Auto) 2.1, Monocytes # (Auto) 0.8, Eosinophils # (Auto) 0.0, Basophils # (Auto) 0.0 11/04/16 08:41: Hemoglobin 7.7L, Hematocrit 24L Microbiology 11/03/16 MRSA Screen - Final, Complete MRSA not isolated Assessment/Plan Assessment/Plan Assessment/Plan 1. Melena, Hematemesis, Anemia - Secondary to Duodenal Ulcer (not actively bleeding during EGD last night) 2. Elevated Troponin - 9, repeat troponins were not ordered will check now and repeat EKG to make sure no changes - Cardiology consult obtained. ASA stopped, Protonix drip started. Pt will need colonoscopy as an outpt. -Will continue pt in the ICU to monitor closer; I am confused as to why his Hemoglobin has not increased, should have...unless it was actually lower than 8.6 yesterday because of dehydration. Will stop Q4 H/H and repeat tonight at 8pm and in am. If no changes will try and discharge Monday morning to follow up as outpt. Clinical Quality Measures DVT/VTE Risk/Contraindication: Risk Factor Score Per Nursin RFS Level Per Nursing on Admit: 4+=Very High MAHESH BAUMANN DO Nov 04, 2016 10:32
[2016-11-04] MEDS ORDERED: OMEP20CA12 PO (10:35)
[2016-11-04] MEDS ORDERED: SUCR1TAB PO (10:35)
--- NOTE | 2016-11-04 10:41 | Discharge Inst-Simple/Standard ---
Discharge Inst-Standard Discharge Medications New, Converted or Re-Newed RX: Call to Patients Pharmacy Patient Instructions/Follow Up Plan of Care/Instructions/FU: If any weakness, bright red blood per rectum or vomiting blood...return to ER immediately. Activity as Tolerated: Yes Discharge Diet: No Restrictions Other Inst to Patient Follow up Appt: Make appointment for 1 week. Call [phone] Instructions: No strenuous activity. May shower in 24 hours, no tub bath or soaking. Use incentive spirometer at home as directed. No Smoking Symptoms to Report: Appetite Changes, Extremity Discoloration, Numbness/Tingling, Swelling Increased , Bleeding Excessive, Eyesight Changes, Pain Increased, Urine Color Change, Constipation(Persistent), Fever over 101 degree F, Pain/Pressure in chest, Urinating Difficulty, Cough Up/Vomit Blood, Heart Beat Irreg/Pounding, Pain/ Pressure in jaw, Vaginal Bleeding Increase, Cramps in feet or legs, Lightheadedness, Pain/Pressure in shoulder, Diarrhea(Persistent), Memory Changes Suddenly, Questions/Concerns, Weight gain consecutive days, Dizziness/ Fainting, Nausea/Vomiting, Shortness of Breath, Weight gain over 2 pounds If questions or concerns contact your physician Or seek help at emergency department. MAHESH BAUMANN DO Nov 04, 2016 10:41
[2016-11-04] MEDS: NS IV SCH ×2 (11:52)
[2016-11-04] MEDS: PANTOPRAZOLE IV SCH ×2 (11:52)
--- NOTE | 2016-11-04 13:55 | OPERATIVE REPORT ---
PROCEDURE PHYSICIAN: MAHESH WALTON DATE OF PROCEDURE: 11/03/2016 PREOPERATIVE DIAGNOSES: 1. Hematemesis. 2. Melena. 3. Anemia. POSTOPERATIVE DIAGNOSES: 1. Hematemesis. 2. Melena. 3. Anemia. 4. Duodenal ulcer, not actively bleeding. PROCEDURE: EGD with biopsy. SURGEON: Dr. Walton. CITY PLANNER: None. ANESTHESIA: IV sedation propofol by the PRECISION DEVICES INSPECTOR/TESTER. BLOOD LOSS: Scant. SPECIMEN: Duodenal biopsy. FLUIDS: Per anesthesia. POSTOPERATIVELY: Stable. INDICATION FOR THE PROCEDURE: The patient is a 71-year-old male who was noted to have melena and then hematemesis black coffee-ground emesis and anemia, needed a work-up for this. FINDINGS: The patient had a duodenal ulcer that was not actively bleeding. There was some coffee-ground liquid in the stomach. Biopsy was done. PROCEDURE NOTE: After informed consent was obtained patient was in the ICU in his bed. He was placed in left lateral decubitus position and administered IV sedation. The EGD scope was inserted down the oropharynx into the esophagus and then down in the stomach. Upon entering the stomach, noted some black coffee-ground liquid. Pushed through to the antrum. The antrum looked good. No erythema and then pushed into the first portion of the duodenum and actually saw an ulcer, with an opening in the bed, looked like I could even see the vessel that had bled but there was no active bleeding. Pushed past this. The second portion of duodenum looked good. Actually we saw the very large opening to the common bile duct. I elected to do a biopsy just outside of the ulcer. Did a biopsy with a small amount of bleeding and then pulled this back. I got a good specimen. Retroflexed, no other obvious pathology in the upper portion of the stomach and then slowly withdrew the scope, took a picture of the GE junction. Again, mild creeping up with the Z line, but did not see any obvious Garcia's and then pulled the EGD out, up through the esophagus and out through the oropharynx. Again did not see any obvious. The patient tolerated the procedure. Recovered in his ICU bed. Job ID: [id number] Dictated Date: 11/03/2016 20:31:03 Chocolate Temperer Date: 11/04/2016 13:45:43 / kiana
--- NOTE | 2016-11-04 14:17 | Progress Note-Cardiology ---
Cardiology SOAP Progress Note Subjective: Admitted with hematemesis and melena, found to have duodenal ulcers Denies cp or palp or syncope or shortness of breath Objective: I&O/Vital Signs Vital Sign - Last 12Hours 11/04/16 11/04/16 11/04/16 11/04/16 02:49 02:49 03:00 03:04 Temp 99.1 99.1 99.2 Pulse 77 77 75 75 Resp 18 18 6 18 B/P (MAP) 120/72 120/72 119/89 119/89 Pulse Ox 99 99 97 O2 Delivery Room Air 11/04/16 11/04/16 11/04/16 11/04/16 04:00 05:00 05:01 06:00 Temp 98.8 Pulse 78 75 77 75 Resp 8 17 20 28 B/P (MAP) 132/81 123/89 123/89 117/77 Pulse Ox 98 96 O2 Delivery Room Air Room Air Room Air 11/04/16 11/04/16 11/04/16 07:00 07:18 13:00 Pulse 78 77 Pulse Ox 96 O2 Flow Rate 2.00 Intake and Output 11/04/16 00:00 Intake Total 2350 ml Output Total 400 ml Balance 1950 ml Weight (Pounds): 189 Weight (Ounces): 5.0 Weight (Calculated Kilograms): [id number] Constitutional: AAO x 3, well-developed, well-nourished Respiratory: No accessory muscle use, other (good bilat air entry) Cardiovascular: regular rate-rhythm, S1 and S2, systolic murmur (soft MADISYN at card base) Gastrointestional: No tender, soft, No guarding, No rebound, audible bowel sounds Extremities: No abrasion, No cyanosis, No significant edema Neurologic/Psychiatric: oriented x 3, grossly intact, power is 5/5 both on sides Skin: No rash on exposed areas, No ulcerations on exposed areas Results/Procedures: Labs Laboratory Tests 11/03/16 14:25: Hemoglobin 8.2L, Hematocrit 26L 11/03/16 20:41: Hemoglobin 8.6L, Hematocrit 26L 11/04/16 00:45: Hemoglobin 7.5L, Hematocrit 23L 11/04/16 03:40: Sodium Level 143, Potassium Level 3.8, Chloride Level 113H, Carbon Dioxide Level 22, Anion Gap 8, Blood Urea Nitrogen 28H, Creatinine 0.86, Estimat Glomerular Filtration Rate > 60, BUN/Creatinine Ratio 33, Glucose Level 117H, Calcium Level 7.6L, Phosphorus Level 2.8, Magnesium Level 1.7L, Total Bilirubin 0.6, Aspartate Amino Transf (AST/SGOT) 116H, Alanine Aminotransferase (ALT/SGPT ) 24, Alkaline Phosphatase 40, Total Protein 4.5L, Albumin 2.8L 11/04/16 05:35: White Blood Count 9.3, Red Blood Count 2.59L, Hemoglobin 8.0L, Hematocrit 24L, Mean Corpuscular Volume 94, Mean Corpuscular Hemoglobin 31, Mean Corpuscular Hemoglobin Concent 33, Red Cell Distribution Width 15.9H, Platelet Count 150, Mean Platelet Volume 10.3, Neutrophils (%) (Auto) 68, Lymphocytes (%) (Auto) 23 , Monocytes (%) (Auto) 9, Eosinophils (%) (Auto) 0, Basophils (%) (Auto) 0, Neutrophils # (Auto) 6.3, Lymphocytes # (Auto) 2.1, Monocytes # (Auto) 0.8, Eosinophils # (Auto) 0.0, Basophils # (Auto) 0.0 11/04/16 08:41: Hemoglobin 7.7L, Hematocrit 24L 11/04/16 10:39: Troponin I 30.62*H 11/04/16 11:35: Lab Scanned Report Transfusion Reaction Form Microbiology 11/03/16 MRSA Screen - Final, Complete MRSA not isolated Laboratory Tests 11/03/16 12:22 11/03/16 14:25 11/03/16 20:41 11/04/16 00:45 11/04/16 03:40 11/04/16 05:35 11/04/16 08:41 A/P: Assessment: Elevated troponin likely due to anemia-related ischemia in the presence of underlying CAD. Conventional NSTEMI (i.e., thrombosis on plaque rupture) is less likely Duodenal ulcer GI bleed likely due to duodenal ulcer (although ulcer not bleeding during endoscopy during this hospitalization) Anemia, marked, due to GI bleed. 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 This consisted of dysphasia from which he has since recovered Plan: Management is relatively complex Usually, we would recommend antiplatelet therapy, but this is likely to further aggravate anemia, since clinical evidence points towards ongoing/unstable GI bleeding We will add beta-amy to the regimen, if tolerated by bp I discussed all of the above issues with and Mrs Rich. They agree with beta-amy, but wish to avoid any antiplatelet therapy Dr Kc, Mr Rich's regular burrer machine, will be back predator control trapper tomorrow LILY HARRIS MD FACP FAC CCDS Nov 04, 2016 14:17
[2016-11-04] MEDS: meTOprolol 5 MG/5 ML (LOPRESSOR) VIAL IV SCH (17:04)
[2016-11-04] MEDS: ACETAMINOPHEN 325 MG TABLET/CAPLET (TYLENOL) PO PRN (21:21)
[2016-11-05] VITALS (30 sets, daily range): BP systolic 93–156; BP diastolic 51–99
[2016-11-05] MEDS: NS IV 1000 ML 1,000 ML IV SCH ×4 (01:00→23:30)
[2016-11-05] MEDS: meTOprolol 5 MG/5 ML (LOPRESSOR) VIAL IV SCH ×3 (06:00→12:13)
[2016-11-05 06:13] LABS: BASOPHILS % (AUTO) 0 % (0-10); EOSINOPHILS % (AUTO) 1 % (0-10); LYMPHOCYTES # (AUTO) 1.6 X 10^3 (1.0-4.0); LYMPHOCYTES % (AUTO) 24 % (12-44); MEAN CORPUSCULAR HEMOGLOBIN 31 PG (25-34); MEAN CORPUSCULAR HGB CONC 32 G/DL (32-36); MEAN CORPUSCULAR VOLUME 95 FL (80-99); MEAN PLATELET VOLUME 9.5 FL (7.4-10.4); MONOCYTES # (AUTO) 0.6 X 10^3 (0.0-1.0); MONOCYTES % (AUTO) 9 % (0-12); NEUTROPHILS # (AUTO) 4.5 X 10^3 (1.8-7.8); NEUTROPHILS % (AUTO) 66 % (42-75); PLATELET COUNT 132 10^3/uL (130-400); RED BLOOD COUNT 2.18 10^6/uL (4.35-5.85); RED CELL DISTRIBUTION WIDTH 15.8 % (10.0-14.5); WHITE BLOOD COUNT 6.7 10^3/uL (4.3-11.0)
[2016-11-05 06:47] LABS: ANION GAP 4 MMOL/L (5-14); BLOOD UREA NITROGEN 10 MG/DL (7-18); BUN/CREATININE RATIO 16; CALCIUM 6.1 MG/DL (8.5-10.1); CARBON DIOXIDE 21 MMOL/L (21-32); CHLORIDE 118 MMOL/L (98-107); CREATININE SERUM 0.63 MG/DL (0.60-1.30); GFR ESTIMATED > 60; GLUCOSE 84 MG/DL (70-105); MAGNESIUM 1.5 MG/DL (1.8-2.4); PHOSPHORUS 2.1 MG/DL (2.3-4.7); POTASSIUM 2.9 MMOL/L (3.6-5.0); SODIUM 143 MMOL/L (135-145)
[2016-11-05] MEDS: POTASSIUM CL 10MEQ/50ML IVPB 50 ML IV SCH (06:50)
[2016-11-05] MEDS: KCL 20 MEQ TAB (K-DUR) PO SCH (06:50)
[2016-11-05] MEDS: MAGNESIUM 1 GM/100 ML IVPB 100 ML IV SCH (06:50)
[2016-11-05] MEDS: SUCRALFATE 1 GM (CARAFATE) TAB PO SCH ×4 (07:11→20:55)
[2016-11-05 07:40] LABS: BASOPHILS % (AUTO) 0 % (0-10); EOSINOPHILS # (AUTO) 0.1 10^3/uL (0.0-0.3); EOSINOPHILS % (AUTO) 1 % (0-10); LYMPHOCYTES # (AUTO) 1.9 X 10^3 (1.0-4.0); LYMPHOCYTES % (AUTO) 23 % (12-44); MEAN CORPUSCULAR HEMOGLOBIN 31 PG (25-34); MEAN CORPUSCULAR HGB CONC 32 G/DL (32-36); MEAN CORPUSCULAR VOLUME 95 FL (80-99); MEAN PLATELET VOLUME 10.2 FL (7.4-10.4); MONOCYTES # (AUTO) 0.8 X 10^3 (0.0-1.0); MONOCYTES % (AUTO) 9 % (0-12); NEUTROPHILS # (AUTO) 5.6 X 10^3 (1.8-7.8); NEUTROPHILS % (AUTO) 67 % (42-75); PLATELET COUNT 162 10^3/uL (130-400); RED BLOOD COUNT 2.54 10^6/uL (4.35-5.85); RED CELL DISTRIBUTION WIDTH 15.7 % (10.0-14.5); WHITE BLOOD COUNT 8.4 10^3/uL (4.3-11.0)
[2016-11-05 07:59] LABS: ANION GAP 5 MMOL/L (5-14); BLOOD UREA NITROGEN 12 MG/DL (7-18); BUN/CREATININE RATIO 15; CALCIUM 7.8 MG/DL (8.5-10.1); CARBON DIOXIDE 27 MMOL/L (21-32); CHLORIDE 110 MMOL/L (98-107); GFR ESTIMATED > 60; GLUCOSE 108 MG/DL (70-105); PHOSPHORUS 2.6 MG/DL (2.3-4.7); POTASSIUM 3.7 MMOL/L (3.6-5.0); SODIUM 142 MMOL/L (135-145)
--- NOTE | 2016-11-05 11:27 | Diagnostic Imaging Report ---
INDICATION: GI bleed. Comparison is made with prior examination 11/04/16. FINDINGS: There is cardiomegaly. There is no pleural effusion, pneumothorax or pneumonia. Mediastinum is unremarkable. IMPRESSION: No acute cardiopulmonary abnormality. Cardiomegaly. Dictated by: Dictated on workstation # [id number]
--- NOTE | 2016-11-05 11:29 | Progress Note (SOAP) ---
Subjective Subjective/Events-last exam doing well. no complaints. tolerating diet. no BM today. Objective Exam Vital Signs Date Time Temp Pulse Resp B/P (MAP) Pulse Ox O2 Delivery O2 Flow Rate FiO2 11/05/16 08:10 99.6 77 11 117/73 98 Room Air 11/05/16 07:00 71 11/05/16 06:00 75 24 106/52 96 Room Air 11/05/16 05:00 82 22 96/74 94 Room Air 11/05/16 04:00 98.3 73 28 96/60 97 Room Air 11/05/16 03:00 79 18 109/68 94 Room Air 11/05/16 02:00 75 13 93/64 Room Air 11/05/16 01:00 83 16 105/65 94 Room Air 11/05/16 01:00 80 11/05/16 00:00 100.5 76 25 95/51 Room Air 11/04/16 23:00 84 17 132/79 Room Air 11/04/16 22:00 80 27 110/68 Room Air 11/04/16 21:55 100.0 11/04/16 21:23 96 11/04/16 21:21 100.5 11/04/16 21:00 85 23 112/65 Room Air 11/04/16 20:00 86 22 118/70 Room Air 11/04/16 20:00 100.5 11/04/16 19:00 80 11/04/16 19:00 101.1 76 28 124/70 Room Air 11/04/16 18:00 75 26 107/67 Room Air 11/04/16 17:00 79 28 110/65 Room Air 11/04/16 16:00 100.2 11/04/16 16:00 81 37 114/86 Room Air 11/04/16 15:00 77 27 118/76 Room Air 11/04/16 14:00 78 25 110/70 Room Air 11/04/16 13:00 76 24 121/77 Room Air 11/04/16 13:00 77 11/04/16 12:00 99.2 I & O 11/05/16 07:00 Intake Total 2325 ml Output Total 1300 ml Balance 1025 ml Capillary Refill : Less Than 3 Seconds General Appearance: No Apparent Distress HEENT: PERRL/EOMI Neck: Full Range of Motion Respiratory: Lungs Clear Cardiovascular: Regular Rate, Rhythm Gastrointestinal: normal bowel sounds, non tender, soft Extremity: Normal Capillary Refill Neurologic/Psychiatric: Alert, Oriented x3 Skin: Normal Color Lymphatic: No Adenopathy Results Lab Laboratory Tests 11/04/16 11:35: Lab Scanned Report Transfusion Reaction Form 11/04/16 20:00: Hemoglobin 8.3L, Hematocrit 25L 11/05/16 06:06: Hemoglobin 6.7*L, Hematocrit 21L, White Blood Count 6.7, Red Blood Count 2.18L, Mean Corpuscular Volume 95, Mean Corpuscular Hemoglobin 31, Mean Corpuscular Hemoglobin Concent 32, Red Cell Distribution Width 15.8H, Platelet Count 132, Mean Platelet Volume 9.5, Neutrophils (%) (Auto) 66, Lymphocytes (%) (Auto) 24, Monocytes (%) (Auto) 9, Eosinophils (%) (Auto) 1, Basophils (%) (Auto) 0, Neutrophils # (Auto) 4.5, Lymphocytes # (Auto) 1.6, Monocytes # (Auto) 0.6, Eosinophils # (Auto) 0.0, Basophils # (Auto) 0.0, Sodium Level 143, Potassium Level 2.9L, Chloride Level 118H, Carbon Dioxide Level 21, Anion Gap 4L, Blood Urea Nitrogen 10, Creatinine 0.63, Estimat Glomerular Filtration Rate > 60, BUN/ Creatinine Ratio 16, Glucose Level 84, Calcium Level 6.1L, Phosphorus Level 2.1L , Magnesium Level 1.5L 11/05/16 07:25: Hemoglobin 7.8L, Hematocrit 24L, White Blood Count 8.4, Red Blood Count 2.54L, Mean Corpuscular Volume 95, Mean Corpuscular Hemoglobin 31, Mean Corpuscular Hemoglobin Concent 32, Red Cell Distribution Width 15.7H, Platelet Count 162, Mean Platelet Volume 10.2, Neutrophils (%) (Auto) 67, Lymphocytes (%) (Auto) 23 , Monocytes (%) (Auto) 9, Eosinophils (%) (Auto) 1, Basophils (%) (Auto) 0, Neutrophils # (Auto) 5.6, Lymphocytes # (Auto) 1.9, Monocytes # (Auto) 0.8, Eosinophils # (Auto) 0.1, Basophils # (Auto) 0.0, Sodium Level 142, Potassium Level 3.7, Chloride Level 110H, Carbon Dioxide Level 27, Anion Gap 5, Blood Urea Nitrogen 12, Creatinine 0.80, Estimat Glomerular Filtration Rate > 60, BUN/ Creatinine Ratio 15, Glucose Level 108H, Calcium Level 7.8L, Phosphorus Level 2.6, Magnesium Level 2.0 Microbiology 11/03/16 MRSA Screen - Final, Complete MRSA not isolated Assessment/Plan Assessment/Plan Assess & Plan/Chief Complaint upper GI bleed secondary ulcer. hx CVA. Hb stable with no signs clinical bleed. Increased troponin being evaluated by cardiology. may be transferred to floor vs home when ok with cardio. PPI and carafate for home. Clinical Quality Measures DVT/VTE Risk/Contraindication: Risk Factor Score Per Nursin RFS Level Per Nursing on Admit: 4+=Very High RICH MCKAY MD Nov 05, 2016 11:29 am
[2016-11-05] MEDS: PANTOPRAZOLE IV SCH ×2 (12:13)
[2016-11-05] MEDS: NS IV SCH ×2 (12:13)
--- NOTE | 2016-11-05 13:18 | Cardiology Progress Note ---
Cardiology SOAP Progress Note Subjective: complains of mild discomfort in the shoulders. Objective: I&O/Vital Signs Vital Sign - Last 12Hours 11/05/16 11/05/16 11/05/16 11/05/16 02:00 03:00 04:00 05:00 Temp 98.3 Pulse 75 79 73 82 Resp 13 28 22 B/P (MAP) 93/64 109/68 96/60 96/74 Pulse Ox 94 97 94 O2 Delivery Room Air Room Air Room Air Room Air 11/05/16 11/05/16 11/05/16 11/05/16 06:00 07:00 07:00 08:10 Temp 99.6 Pulse 75 71 72 77 Resp 24 11 B/P (MAP) 106/52 106/76 117/73 Pulse Ox 96 98 O2 Delivery Room Air Room Air Room Air 11/05/16 11/05/16 11/05/16 11/05/16 09:00 10:00 11:00 12:12 Temp 99.8 Pulse 80 87 93 86 Resp 21 B/P (MAP) 129/82 138/84 133/82 140/88 Pulse Ox 99 O2 Delivery Room Air Room Air Room Air Room Air Intake and Output 11/05/16 00:00 Intake Total 650 ml Output Total 100 ml Balance 550 ml Weight (Pounds): 188 Weight (Ounces): 9.6 Weight (Calculated Kilograms): 85.361946 Constitutional: AAO x 3, well-developed, well-nourished Respiratory: No accessory muscle use, No respiratory distress, No chest tender , No chest expansion is symmetric, No chest is bilaterally symmetric, No lungs clear to percussion, No lungs clear to auscultation, No crackles, No rhonchi, No rales, No stridor, No wheezing, No pleural rub, other (good bilat air entry) Cardiovascular: regular rate-rhythm, No irregularly irregular, No extra beats, No parasternal heave is noted, No JVD, No edema, No bradycardia, No tachycardia , No point of maximal impulse, No cardiac thrills are palpable, S1 and S2, No gallop/S3, No gallop/S4, No diastolic murmur, systolic murmur (soft MADISYN at card base), No friction rub, No click, No other Gastrointestional: No tender, soft, No guarding, No rebound, audible bowel sounds Extremities: No normal range of motion, No non-tender, No normal inspection, No pedal edema, No calf tenderness, No normal capillary refill, No pelvis stable , No calf tenderness, No inflammation, No pedal edema, No slow capillary refill , No swelling, No other, No abrasion, No clubbing, No cyanosis, No ecchymosis, No laceration, No no lower extremity edema bilateral, No significant edema, No tenderness, No wound Neurologic/Psychiatric: No surgical instruments inspector II-XII nml as tested, No no motor/sensory deficits, No alert, No normal mood/affect, oriented x 3, No abnormal cerebellar tests, No abnormal surgical instruments inspector II-XII, No abnormal gait, No aphasia, No EOM palsy, No facial droop, No motor weakness, No sensory deficit, No depressed affect, No disoriented x 3, No other, grossly intact, power is 5/5 both on sides Skin: pallor, No rash on exposed areas, No ulcerations on exposed areas Results/Procedures: Labs Laboratory Tests 11/04/16 20:00: Hemoglobin 8.3L, Hematocrit 25L 11/05/16 06:06: Hemoglobin 6.7*L, Hematocrit 21L, White Blood Count 6.7, Red Blood Count 2.18L, Mean Corpuscular Volume 95, Mean Corpuscular Hemoglobin 31, Mean Corpuscular Hemoglobin Concent 32, Red Cell Distribution Width 15.8H, Platelet Count 132, Mean Platelet Volume 9.5, Neutrophils (%) (Auto) 66, Lymphocytes (%) (Auto) 24, Monocytes (%) (Auto) 9, Eosinophils (%) (Auto) 1, Basophils (%) (Auto) 0, Neutrophils # (Auto) 4.5, Lymphocytes # (Auto) 1.6, Monocytes # (Auto) 0.6, Eosinophils # (Auto) 0.0, Basophils # (Auto) 0.0, Sodium Level 143, Potassium Level 2.9L, Chloride Level 118H, Carbon Dioxide Level 21, Anion Gap 4L, Blood Urea Nitrogen 10, Creatinine 0.63, Estimat Glomerular Filtration Rate > 60, BUN/ Creatinine Ratio 16, Glucose Level 84, Calcium Level 6.1L, Phosphorus Level 2.1L , Magnesium Level 1.5L 11/05/16 07:25: Hemoglobin 7.8L, Hematocrit 24L, White Blood Count 8.4, Red Blood Count 2.54L, Mean Corpuscular Volume 95, Mean Corpuscular Hemoglobin 31, Mean Corpuscular Hemoglobin Concent 32, Red Cell Distribution Width 15.7H, Platelet Count 162, Mean Platelet Volume 10.2, Neutrophils (%) (Auto) 67, Lymphocytes (%) (Auto) 23 , Monocytes (%) (Auto) 9, Eosinophils (%) (Auto) 1, Basophils (%) (Auto) 0, Neutrophils # (Auto) 5.6, Lymphocytes # (Auto) 1.9, Monocytes # (Auto) 0.8, Eosinophils # (Auto) 0.1, Basophils # (Auto) 0.0, Sodium Level 142, Potassium Level 3.7, Chloride Level 110H, Carbon Dioxide Level 27, Anion Gap 5, Blood Urea Nitrogen 12, Creatinine 0.80, Estimat Glomerular Filtration Rate > 60, BUN/ Creatinine Ratio 15, Glucose Level 108H, Calcium Level 7.8L, Phosphorus Level 2.6, Magnesium Level 2.0 Microbiology 11/03/16 MRSA Screen - Final, Complete MRSA not isolated A/P: Assessment/Dx: Upper GI bleed. Left shoulder discomfort with significantly positive troponin. Plan: Upper GI bleeding defer treatment to Gen. surgery. no source of active bleeding found. NSTEMI. most likely secondary to demand ischemia. However the level of troponin is disproportionate to demand ischemia and there could be associated plaque rupture. However medical therapy for non-STEMI is significantly limited due to active bleeding. Patient received 3 units of PRBC however there was no increase in hemoglobin/hematocrit. This is very concerning and may represent active bleeding. I will discuss with general surgery on-call to see if we can at least give aspirin. He was already given beta amy, I will increase the dose. Will add DENISA inhibitor and statin. We will keep him overnight at least one more day. Liliana JACKSON MD Nov 05, 2016 13:18
[2016-11-05] MEDS ORDERED: CLOPIDOGREL 75 MG (PLAVIX) TABLET PO ONE (17:45)
[2016-11-05] MEDS ORDERED: ASPIRIN E.C. 81 MG (ECOTRIN) TAB PO ONE (17:45)
[2016-11-05] MEDS ORDERED: NS IV 500 ML 500 ML ONE (18:17)
[2016-11-05] MEDS: ACETAMINOPHEN 325 MG TABLET/CAPLET (TYLENOL) PO PRN (19:37)
[2016-11-05] MEDS: meTOprolol TARTRATE 25 MG (LOPRESSOR) TABLET PO SCH (20:55)
[2016-11-05] MEDS ORDERED: ATORVASTATIN 40 MG (LIPITOR) TABLET PO SCH (21:00)
[2016-11-06] VITALS (17 sets, daily range): BP systolic 70–140; BP diastolic 30–94
[2016-11-06 03:54] LABS: BASOPHILS % (AUTO) 0 % (0-10); EOSINOPHILS # (AUTO) 0.1 10^3/uL (0.0-0.3); EOSINOPHILS % (AUTO) 2 % (0-10); LYMPHOCYTES # (AUTO) 1.5 X 10^3 (1.0-4.0); LYMPHOCYTES % (AUTO) 18 % (12-44); MEAN CORPUSCULAR HEMOGLOBIN 31 PG (25-34); MEAN CORPUSCULAR HGB CONC 33 G/DL (32-36); MEAN CORPUSCULAR VOLUME 93 FL (80-99); MEAN PLATELET VOLUME 10.9 FL (7.4-10.4); MONOCYTES # (AUTO) 0.8 X 10^3 (0.0-1.0); MONOCYTES % (AUTO) 9 % (0-12); NEUTROPHILS # (AUTO) 5.9 X 10^3 (1.8-7.8); NEUTROPHILS % (AUTO) 71 % (42-75); PLATELET COUNT 155 10^3/uL (130-400); RED BLOOD COUNT 2.88 10^6/uL (4.35-5.85); RED CELL DISTRIBUTION WIDTH 16.8 % (10.0-14.5); WHITE BLOOD COUNT 8.3 10^3/uL (4.3-11.0)
[2016-11-06 04:12] LABS: ANION GAP 6 MMOL/L (5-14); BLOOD UREA NITROGEN 16 MG/DL (7-18); BUN/CREATININE RATIO 19; CALCIUM 8.1 MG/DL (8.5-10.1); CARBON DIOXIDE 25 MMOL/L (21-32); CHLORIDE 109 MMOL/L (98-107); CREATININE SERUM 0.84 MG/DL (0.60-1.30); GFR ESTIMATED > 60; GLUCOSE 107 MG/DL (70-105); MAGNESIUM 1.9 MG/DL (1.8-2.4); POTASSIUM 3.7 MMOL/L (3.6-5.0); SODIUM 140 MMOL/L (135-145)
[2016-11-06] MEDS: POTASSIUM CL 10MEQ/50ML IVPB 50 ML IV SCH (04:22)
[2016-11-06] MEDS: KCL 20 MEQ TAB (K-DUR) PO SCH (04:22)
[2016-11-06] MEDS: MAGNESIUM 1 GM/100 ML IVPB 100 ML IV SCH (04:22)
[2016-11-06] MEDS ORDERED: NS IV 1000 ML 1,000 ML IV ONE (05:36)
[2016-11-06 06:02] LABS: MEAN PLATELET VOLUME 10.8 FL (7.4-10.4); RED CELL DISTRIBUTION WIDTH 16.9 % (10.0-14.5); WHITE BLOOD COUNT 8.4 10^3/uL (4.3-11.0)
[2016-11-06 06:18] LABS: ANION GAP 7 MMOL/L (5-14); BLOOD UREA NITROGEN 17 MG/DL (7-18); BUN/CREATININE RATIO 17; CARBON DIOXIDE 25 MMOL/L (21-32); CHLORIDE 109 MMOL/L (98-107); CREATININE SERUM 0.98 MG/DL (0.60-1.30); GFR ESTIMATED > 60; GLUCOSE 135 MG/DL (70-105); POTASSIUM 3.8 MMOL/L (3.6-5.0); SODIUM 141 MMOL/L (135-145)
[2016-11-06 06:28] LABS: TROPONIN I 15.67 NG/ML (<0.30)
[2016-11-06] MEDS: SUCRALFATE 1 GM (CARAFATE) TAB PO SCH ×2 (07:05→11:37)
[2016-11-06] MEDS: NS IV 1000 ML 1,000 ML IV SCH (07:17)
--- NOTE | 2016-11-06 07:36 | Diagnostic Imaging Report ---
PROCEDURE: CT head and CT cervical spine without contrast. TECHNIQUE: Multiple contiguous axial images were obtained through the brain and cervical spine without the use of intravenous contrast. Sagittal and coronal reformations through the cervical spine were then performed. INDICATION: Head and neck pain after a fall. Comparison is made with prior examination from 07/06/16. FINDINGS: There is prominence of the ventricles and sulci. There is some chronic microvascular ischemic disease. There is no hydrocephalus. There is no midline shift. There is no intracranial mass, hemorrhage or extra-axial fluid collection. There are some subtle areas of increased density in the occipital regions bilaterally which is similar to the prior examination. This likely is related to some calcifications. There is mild mucosal thickening in the paranasal sinuses. Mastoid air cells are clear. The alignment of the cervical spine is normal. There is some degenerative disc disease at C6-7. There is no fracture or traumatic subluxation. The odontoid is intact and the lateral masses are well aligned. The prevertebral soft tissues are within normal limits. IMPRESSION: Atrophy and some chronic microvascular ischemic disease, however, no acute intracranial abnormality. Mild cervical spondylosis without acute fracture or traumatic subluxation Dictated by: Dictated on workstation # [id number]
[2016-11-06] MEDS ORDERED: lisINopril 5 MG (PRINIVIL) TABLET PO SCH (09:00)
[2016-11-06] MEDS ORDERED: CLOPIDOGREL 75 MG (PLAVIX) TABLET PO SCH (09:00)
[2016-11-06] MEDS ORDERED: ASPIRIN E.C. 81 MG (ECOTRIN) TAB PO SCH (09:00)
[2016-11-06] MEDS: meTOprolol TARTRATE 25 MG (LOPRESSOR) TABLET PO SCH (09:14)
--- NOTE | 2016-11-06 10:14 | Progress Note (SOAP) ---
Subjective Subjective/Events-last exam Patient seen with Dr. Galindo. Patient reports that around 0400 this AM he had a fall. He reports that he could not remember much details, but believed he was trying to have a BM and then had what sounds to be a vagal maneuver, falling and hitting his head. He reports that when he awoke he was having some head and neck pain. A CT scan was then performed with no acute fracture or dislocations. Patient reports that since that time he has been doing well. He has had a large BM with no blood in his stool. He denies any reflux, nausea, vomiting. He reports that he is tolerating his diet. He denies any neck/head pain at this time. No changes in vision. No changes in hearing. Patient is AAOx3. Review of Systems General: No Chills, No Night Sweats HEENT: No Head Aches, No Visual Changes, No Eye Pain, No Ear Pain Gastrointestinal: No: Abdominal Pain, Nausea, Vomiting Musculoskeletal: No: neck pain Neurological: No: Change in speech, Confusion Objective Exam Vital Signs Date Time Temp Pulse Resp B/P (MAP) Pulse Ox O2 Delivery O2 Flow Rate FiO2 11/06/16 09:15 98.9 70 18 114/85 94 Room Air 11/06/16 07:00 63 11/06/16 06:00 71 15 107/77 98 Room Air 11/06/16 05:00 59 14 70/30 90 Room Air 11/06/16 04:00 99.5 61 21 94/64 94 Room Air 11/06/16 04:00 94 11/06/16 03:00 66 28 96/63 96 Room Air 11/06/16 02:00 65 10 91/65 91 Room Air 11/06/16 01:00 65 22 99/64 94 Room Air 11/06/16 00:58 68 11/06/16 00:07 99.6 71 14 107/73 95 11/06/16 00:00 99.6 71 14 107/73 95 Room Air 11/05/16 23:48 98 11/05/16 23:05 100.0 79 15 119/69 96 11/05/16 23:00 100.0 79 17 119/69 95 Room Air 11/05/16 22:01 99.6 79 21 120/72 97 11/05/16 22:00 79 27 120/72 95 Room Air 11/05/16 21:51 99.8 79 20 116/78 98 11/05/16 21:00 79 15 116/78 97 Room Air 11/05/16 20:53 99.6 75 13 129/79 97 11/05/16 20:00 80 21 129/79 99 Room Air 11/05/16 19:00 96 11/05/16 19:00 100.0 82 14 132/78 97 Room Air 11/05/16 18:58 100.0 97 20 156/99 98 11/05/16 18:41 99.8 85 21 136/78 96 11/05/16 18:00 85 24 127/72 93 Room Air 11/05/16 17:00 95 25 128/82 Room Air 11/05/16 17:00 99.6 128/82 96 Room Air 11/05/16 16:00 83 27 125/78 Room Air 11/05/16 15:00 79 17 109/71 Room Air 11/05/16 14:00 82 16 105/67 Room Air 11/05/16 13:00 77 20 114/74 Room Air 11/05/16 13:00 78 11/05/16 12:12 99.8 86 21 140/88 99 Room Air 11/05/16 11:00 93 17 133/82 Room Air I & O 11/06/16 07:00 Intake Total 2660 ml Output Total 1650 ml Balance 1010 ml Capillary Refill : Less Than 3 Seconds General Appearance: No Apparent Distress, WD/WN HEENT: PERRL/EOMI Neck: Full Range of Motion, Normal Inspection, Non Tender, Supple Respiratory: Lungs Clear, Normal Breath Sounds, No Accessory Muscle Use, No Respiratory Distress Cardiovascular: Regular Rate, Rhythm, No Edema, No JVD Gastrointestinal: normal bowel sounds, non tender, soft Extremity: Normal Capillary Refill, Normal Inspection, Normal Range of Motion, Non Tender, No Calf Tenderness, No Pedal Edema Neurologic/Psychiatric: Alert, Oriented x3, No Motor/Sensory Deficits, Normal Mood/Affect Skin: Normal Color, Warm/Dry Results Lab Laboratory Tests 11/06/16 03:42: White Blood Count 8.3, Red Blood Count 2.88L, Hemoglobin 8.8L, Hematocrit 27L, Mean Corpuscular Volume 93, Mean Corpuscular Hemoglobin 31, Mean Corpuscular Hemoglobin Concent 33, Red Cell Distribution Width 16.8H, Platelet Count 155, Mean Platelet Volume 10.9H, Neutrophils (%) (Auto) 71, Lymphocytes (%) (Auto) 18 , Monocytes (%) (Auto) 9, Eosinophils (%) (Auto) 2, Basophils (%) (Auto) 0, Neutrophils # (Auto) 5.9, Lymphocytes # (Auto) 1.5, Monocytes # (Auto) 0.8, Eosinophils # (Auto) 0.1, Basophils # (Auto) 0.0, Sodium Level 140, Potassium Level 3.7, Chloride Level 109H, Carbon Dioxide Level 25, Anion Gap 6, Blood Urea Nitrogen 16, Creatinine 0.84, Estimat Glomerular Filtration Rate > 60, BUN/ Creatinine Ratio 19, Glucose Level 107H, Calcium Level 8.1L, Phosphorus Level 3.0, Magnesium Level 1.9 11/06/16 05:52: White Blood Count 8.4, Red Blood Count 3.00L, Hemoglobin 9.3L, Hematocrit 28L, Mean Corpuscular Volume 93, Mean Corpuscular Hemoglobin 31, Mean Corpuscular Hemoglobin Concent 33, Red Cell Distribution Width 16.9H, Platelet Count 172, Mean Platelet Volume 10.8H, Sodium Level 141, Potassium Level 3.8, Chloride Level 109H, Carbon Dioxide Level 25, Anion Gap 7, Blood Urea Nitrogen 17, Creatinine 0.98, Estimat Glomerular Filtration Rate > 60, BUN/Creatinine Ratio 17, Glucose Level 135H, Calcium Level 8.0L, Troponin I 15.67*H Microbiology 11/03/16 MRSA Screen - Final, Complete MRSA not isolated Assessment/Plan Assessment/Plan Assess & Plan/Chief Complaint upper GI bleed secondary ulcer. hx CVA. S/P fall this AM. Hb improving. troponin being evaluated by cardiology and decreased. may be transferred to floor vs home when ok with cardio. PPI and carafate for home. CT negative and will remove C-collar. Clinical Quality Measures DVT/VTE Risk/Contraindication: Risk Factor Score Per Nursin RFS Level Per Nursing on Admit: 4+=Very High MARIAM BARILLAS CLEANING VALIDATION CONSULTANT Nov 06, 2016 10:14 am
--- NOTE | 2016-11-06 10:20 | Diagnostic Imaging Report ---
Indication: GI bleed. Comparison made with prior examination from 11/05/16. Findings: There's cardiomegaly. There is some elevation of he right hemidiaphragm. There is some minimal right basilar atelectasis and/or pneumonitis. There is no pneumothorax. The mediastinum is unremarkable. IMPRESSION: Elevation of the right hemidiaphragm with some minimal right basilar atelectasis and/or pneumonitis. Cardiomegaly. Dictated by: Dictated on workstation # [id number]
--- NOTE | 2016-11-06 11:08 | Progress Note-Standard ---
Standard Progress Note Progress Notes/Assess & Plan Progress/Assessment & Plan Hb stable. fall last night due to vasovagal/orthostatic. no injury of deficit. tolerating reg diet. on asa, plavix and lovenox per cardio. decreased troponin. ok for floor vs. home per surgery. continue PPI and carafate at home. RICH MCKAY MD Nov 06, 2016 11:08 am
--- NOTE | 2016-11-06 13:35 | Cardiology Progress Note ---
Cardiology SOAP Progress Note Subjective: events noted. fall this am with no significant injuries. Objective: I&O/Vital Signs Vital Sign - Last 12Hours 11/06/16 11/06/16 11/06/16 11/06/16 03:00 04:00 04:00 05:00 Temp 99.5 Pulse 66 61 59 Resp 28 21 14 B/P (MAP) 96/63 94/64 70/30 Pulse Ox 96 94 94 90 O2 Delivery Room Air Room Air Room Air 11/06/16 11/06/16 11/06/16 11/06/16 06:00 07:00 09:15 11:42 Temp 98.9 Pulse 71 63 70 Resp 15 18 B/P (MAP) 107/77 114/85 Pulse Ox 98 94 95 O2 Delivery Room Air Room Air 11/06/16 13:00 Pulse 65 Intake and Output 11/06/16 00:00 Intake Total 1790 ml Output Total 675 ml Balance 1115 ml Weight (Pounds): 191 Weight (Ounces): 0.0 Weight (Calculated Kilograms): 86.705833 Constitutional: AAO x 3, well-developed, well-nourished Respiratory: No accessory muscle use, No respiratory distress, No chest tender , No chest expansion is symmetric, No chest is bilaterally symmetric, No lungs clear to percussion, No lungs clear to auscultation, No crackles, No rhonchi, No rales, No stridor, No wheezing, No pleural rub, other (good bilat air entry) Cardiovascular: regular rate-rhythm, No irregularly irregular, No extra beats, No parasternal heave is noted, No JVD, No edema, No bradycardia, No tachycardia , No point of maximal impulse, No cardiac thrills are palpable, S1 and S2, No gallop/S3, No gallop/S4, No diastolic murmur, systolic murmur (soft MADISYN at card base), No friction rub, No click, No other Gastrointestional: No tender, soft, No guarding, No rebound, audible bowel sounds Extremities: No normal range of motion, No non-tender, No normal inspection, No pedal edema, No calf tenderness, No normal capillary refill, No pelvis stable , No calf tenderness, No inflammation, No pedal edema, No slow capillary refill , No swelling, No other, No abrasion, No clubbing, No cyanosis, No ecchymosis, No laceration, No no lower extremity edema bilateral, No significant edema, No tenderness, No wound Neurologic/Psychiatric: No wet process head miller II-XII nml as tested, No no motor/sensory deficits, No alert, No normal mood/affect, oriented x 3, No abnormal cerebellar tests, No abnormal wet process head miller II-XII, No abnormal gait, No aphasia, No EOM palsy, No facial droop, No motor weakness, No sensory deficit, No depressed affect, No disoriented x 3, No other, grossly intact, power is 5/5 both on sides Skin: pallor, No rash on exposed areas, No ulcerations on exposed areas Results/Procedures: Labs Laboratory Tests 11/06/16 03:42: White Blood Count 8.3, Red Blood Count 2.88L, Hemoglobin 8.8L, Hematocrit 27L, Mean Corpuscular Volume 93, Mean Corpuscular Hemoglobin 31, Mean Corpuscular Hemoglobin Concent 33, Red Cell Distribution Width 16.8H, Platelet Count 155, Mean Platelet Volume 10.9H, Neutrophils (%) (Auto) 71, Lymphocytes (%) (Auto) 18 , Monocytes (%) (Auto) 9, Eosinophils (%) (Auto) 2, Basophils (%) (Auto) 0, Neutrophils # (Auto) 5.9, Lymphocytes # (Auto) 1.5, Monocytes # (Auto) 0.8, Eosinophils # (Auto) 0.1, Basophils # (Auto) 0.0, Sodium Level 140, Potassium Level 3.7, Chloride Level 109H, Carbon Dioxide Level 25, Anion Gap 6, Blood Urea Nitrogen 16, Creatinine 0.84, Estimat Glomerular Filtration Rate > 60, BUN/ Creatinine Ratio 19, Glucose Level 107H, Calcium Level 8.1L, Phosphorus Level 3.0, Magnesium Level 1.9 11/06/16 05:52: White Blood Count 8.4, Red Blood Count 3.00L, Hemoglobin 9.3L, Hematocrit 28L, Mean Corpuscular Volume 93, Mean Corpuscular Hemoglobin 31, Mean Corpuscular Hemoglobin Concent 33, Red Cell Distribution Width 16.9H, Platelet Count 172, Mean Platelet Volume 10.8H, Sodium Level 141, Potassium Level 3.8, Chloride Level 109H, Carbon Dioxide Level 25, Anion Gap 7, Blood Urea Nitrogen 17, Creatinine 0.98, Estimat Glomerular Filtration Rate > 60, BUN/Creatinine Ratio 17, Glucose Level 135H, Calcium Level 8.0L, Troponin I 15.67*H Microbiology 11/03/16 MRSA Screen - Final, Complete MRSA not isolated A/P: Assessment/Dx: Upper GI bleed. Left shoulder discomfort with significantly positive troponin. Plan: Upper GI bleeding defer treatment to Gen. surgery. no source of active bleeding found. fall likely vasovagal. NSTEMI. most likely secondary to demand ischemia. However the level of troponin is disproportionate to demand ischemia and there could be associated plaque rupture. However medical therapy for non-STEMI is significantly limited due to active bleeding. Patient received 3 units of PRBC however there was no increase in hemoglobin/hematocrit. This is very concerning and may represent active bleeding. Two further units given and mild increase in Hb noted. No further evidence of active bleeding, therefore, started on aspirin and plavix. will not cath till it is clear about the source of bleeding. outpatient stress test early next week. Patient wants to go home. I discussed at length the risks associated with going home. recurrent nstemi and bleeding are risks and he will immediately call 911 if any further epigastric discomfort, shoulder pain or bleeding. Liliana JACKSON MD Nov 06, 2016 1:35 pm
[2016-11-06] MEDS ORDERED: PANT40TA2 PO (14:40)
[2016-11-06] MEDS ORDERED: METO-333 PO (14:59)
[2016-11-06] MEDS ORDERED: ASPI-983 PO (14:59)
[2016-11-06] MEDS ORDERED: LISI-556 PO (14:59)
[2016-11-06] MEDS ORDERED: ATOR40TA PO (14:59)
[2016-11-06] MEDS ORDERED: CLOP75TA69 PO (14:59)
--- NOTE | 2016-11-09 06:52 | Inpatient Code Blue ---
General Chief Complaint: Abdominal/GI Problems Stated Complaint: UPPER GI BLEED,NSTEMI Nursing Triage Note: pt presents to ed with complaint of black tarry stools since yesterday and coffee ground emesis today. Source: patient Exam Limitations: no limitations History of Present Illness Time seen by provider: 05:22 Initial Comments This note is from a CODE BLUE response on November 06, 2016 CODE BLUE was paged out to which this provider responded. Reportedly patient collapsed out of bed and was found on the floor. He had been admitted for GI bleed and STEMI. Nursing staff stated patient initially was bradycardic with no pulse. Only a couple of chest compressions were performed before he responded. He was talking and responsive upon my arrival. He was breathing independently. He was hypotensive and IV fluids had been initiated. He was still lying on the floor. There was a small contusion on his forehead. C- collar was applied and he remained on the floor during assessment. Allergies and Home Medications Allergies Coded Allergies: No Known Drug Allergies (Unverified , 07/01/16) Home Medications Aspirin 81 Mg Tablet., 81 MG PO DAILY, #30 Prescribed by: QUIANA PEREZ on 11/06/16 1459 Atorvastatin Calcium 40 Mg Tablet, 40 MG PO HS, #30 Prescribed by: QUIANA PEREZ on 11/06/16 1459 Citalopram Hydrobromide 40 Mg Tablet, 40 MG PO DAILY, (Reported) Clopidogrel Bisulfate 75 Mg Tablet, 75 MG PO DAILY, #30 Prescribed by: QUIANA PEREZ on 11/06/16 1459 Lisinopril 5 Mg Tablet, 5 MG PO DAILY, #30 Prescribed by: QUIANA PEREZ on 11/06/16 1459 Metoprolol Tartrate 25 Mg Tablet, 25 MG PO BID, #60 Prescribed by: QUIANA PEREZ on 11/06/16 1459 Multivitamin 1 Each Tablet, 1 TAB PO DAILY, (Reported) Omeprazole 20 Mg Capsule., 40 MG PO DAILY for 30 Days, Ref 3 Prescribed by: MAHESH BAUMANN on 11/04/16 1035 Pantoprazole Sodium 40 Mg Tablet., 40 MG PO DAILY, #90 Prescribed by: QUIANA PEREZ on 11/06/16 1440 Sucralfate 1 Gm Tablet, 1 GM PO ACHS for 30 Days, #120 Ref 3 Prescribed by: MAHESH BAUMANN on 11/04/16 1035 Physical Exam Vital Signs Vital Sign - Last 12Hours 11/03/16 11:55 Temp 97.9 Pulse 89 Resp 18 B/P (MAP) 111/71 Pulse Ox 97 O2 Delivery Nasal Cannula O2 Flow Rate 2.00 Capillary Refill : Less Than 3 Seconds General Appearance: WD/WN, other (somnolent but responsive) Ears, Nose, Throat: normal ENT inspection Neck: non-tender, supple, normal inspection Respiratory: lungs clear, normal breath sounds, no respiratory distress Cardiovascular: regular rate, rhythm, no edema, other (hypotensive) Extremities: normal inspection 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, alert, other (patient is somnolent and disoriented but alert) Skin: normal color, warm/dry Progress/Results/Core Measures Results/Orders Lab Results Laboratory Tests Test 11/03/16 12:22 11/03/16 14:25 11/03/16 20:41 11/04/16 00:45 Range/Units White Blood Count 15.6 H 4.3-11.0 10^3/uL Red Blood Count 2.68 L 4.35-5.85 10^6/uL Hemoglobin 8.6 L 8.2 L 8.6 L 7.5 L 13.3-17.7 G/DL Hematocrit 26 L 26 L 26 L 23 L 40-54 % Mean Corpuscular Volume 97 80-99 FL Mean Corpuscular Hemoglobin 32 25-34 PG Mean Corpuscular Hemoglobin Concent 33 32-36 G/DL Red Cell Distribution Width 14.1 10.0-14.5 % Platelet Count 249 130-400 10^3/uL Mean Platelet Volume 10.4 7.4-10.4 FL Neutrophils (%) (Auto) 82 H 42-75 % Lymphocytes (%) (Auto) 14 12-44 % Monocytes (%) (Auto) 4 0-12 % Eosinophils (%) (Auto) 0 0-10 % Basophils (%) (Auto) 0 0-10 % Neutrophils # (Auto) 12.8 H 1.8-7.8 X 10^3 Lymphocytes # (Auto) 2.1 1.0-4.0 X 10^3 Monocytes # (Auto) 0.7 0.0-1.0 X 10^3 Eosinophils # (Auto) 0.0 0.0-0.3 10^3/uL Basophils # (Auto) 0.0 0.0-0.1 10^3/uL Neutrophils % (Manual) 74 % Lymphocytes % (Manual) 20 % Monocytes % (Manual) 3 % Eosinophils % (Manual) 0 % Basophils % (Manual) 0 % Band Neutrophils 3 % Anisocytosis SLIGHT Prothrombin Time 15.0 H 12.2-14.7 SEC INR Comment 1.2 0.8-1.4 Activated Partial Thromboplast Time 32 24-35 SEC Sodium Level 142 135-145 MMOL/L Potassium Level 4.3 3.6-5.0 MMOL/L Chloride Level 108 H 98-107 MMOL/L Carbon Dioxide Level 29 21-32 MMOL/L Anion Gap 5 5-14 MMOL/L Blood Urea Nitrogen 43 H 7-18 MG/DL Creatinine 1.15 0.60-1.30 MG/DL Estimat Glomerular Filtration Rate > 60 BUN/Creatinine Ratio 37 Glucose Level 149 H 70-105 MG/DL Calcium Level 8.8 8.5-10.1 MG/DL Magnesium Level 1.8 1.8-2.4 MG/DL Total Bilirubin 0.3 0.1-1.0 MG/DL Aspartate Amino Transf (AST/SGOT) 65 H 5-34 U/L Alanine Aminotransferase (ALT/SGPT) 19 0-55 U/L Alkaline Phosphatase 49 40-136 U/L Troponin I 9.21 *H <0.30 NG/ML Total Protein 5.9 L 6.4-8.2 G/DL Albumin 3.6 3.2-4.5 G/DL Test 11/04/16 03:40 11/04/16 05:35 11/04/16 08:41 11/04/16 10:39 Range/Units Sodium Level 143 135-145 MMOL/L Potassium Level 3.8 3.6-5.0 MMOL/L Chloride Level 113 H 98-107 MMOL/L Carbon Dioxide Level 22 21-32 MMOL/L Anion Gap 8 5-14 MMOL/L Blood Urea Nitrogen 28 H 7-18 MG/DL Creatinine 0.86 0.60-1.30 MG/DL Estimat Glomerular Filtration Rate > 60 BUN/Creatinine Ratio 33 Glucose Level 117 H 70-105 MG/DL Calcium Level 7.6 L 8.5-10.1 MG/DL Phosphorus Level 2.8 2.3-4.7 MG/DL Magnesium Level 1.7 L 1.8-2.4 MG/DL Total Bilirubin 0.6 0.1-1.0 MG/DL Aspartate Amino Transf (AST/SGOT) 116 H 5-34 U/L Alanine Aminotransferase (ALT/SGPT) 24 0-55 U/L Alkaline Phosphatase 40 40-136 U/L Total Protein 4.5 L 6.4-8.2 G/DL Albumin 2.8 L 3.2-4.5 G/DL White Blood Count 9.3 4.3-11.0 10^3/uL Red Blood Count 2.59 L 4.35-5.85 10^6/uL Hemoglobin 8.0 L 7.7 L 13.3-17.7 G/DL Hematocrit 24 L 24 L 40-54 % Mean Corpuscular Volume 94 80-99 FL Mean Corpuscular Hemoglobin 31 25-34 PG Mean Corpuscular Hemoglobin Concent 33 32-36 G/DL Red Cell Distribution Width 15.9 H 10.0-14.5 % Platelet Count 150 130-400 10^3/uL Mean Platelet Volume 10.3 7.4-10.4 FL Neutrophils (%) (Auto) 68 42-75 % Lymphocytes (%) (Auto) 23 12-44 % Monocytes (%) (Auto) 9 0-12 % Eosinophils (%) (Auto) 0 0-10 % Basophils (%) (Auto) 0 0-10 % Neutrophils # (Auto) 6.3 1.8-7.8 X 10^3 Lymphocytes # (Auto) 2.1 1.0-4.0 X 10^3 Monocytes # (Auto) 0.8 0.0-1.0 X 10^3 Eosinophils # (Auto) 0.0 0.0-0.3 10^3/uL Basophils # (Auto) 0.0 0.0-0.1 10^3/uL Troponin I 30.62 *H <0.30 NG/ML Test 11/04/16 11:35 11/04/16 20:00 11/05/16 06:06 11/05/16 07:25 Range/Units Lab Scanned Report Transfusion Reaction Form [id number] Hemoglobin 8.3 L 6.7 *L 7.8 L 13.3-17.7 G/DL Hematocrit 25 L 21 L 24 L 40-54 % White Blood Count 6.7 8.4 4.3-11.0 10^3/uL Red Blood Count 2.18 L 2.54 L 4.35-5.85 10^6/uL Mean Corpuscular Volume 95 95 80-99 FL Mean Corpuscular Hemoglobin 31 31 25-34 PG Mean Corpuscular Hemoglobin Concent 32 32 32-36 G/DL Red Cell Distribution Width 15.8 H 15.7 H 10.0-14.5 % Platelet Count 132 162 130-400 10^3/uL Mean Platelet Volume 9.5 10.2 7.4-10.4 FL Neutrophils (%) (Auto) 66 67 42-75 % Lymphocytes (%) (Auto) 24 23 12-44 % Monocytes (%) (Auto) 9 9 0-12 % Eosinophils (%) (Auto) 1 1 0-10 % Basophils (%) (Auto) 0 0 0-10 % Neutrophils # (Auto) 4.5 5.6 1.8-7.8 X 10^3 Lymphocytes # (Auto) 1.6 1.9 1.0-4.0 X 10^3 Monocytes # (Auto) 0.6 0.8 0.0-1.0 X 10^3 Eosinophils # (Auto) 0.0 0.1 0.0-0.3 10^3/uL Basophils # (Auto) 0.0 0.0 0.0-0.1 10^3/uL Sodium Level 143 142 135-145 MMOL/L Potassium Level 2.9 L 3.7 3.6-5.0 MMOL/L Chloride Level 118 H 110 H 98-107 MMOL/L Carbon Dioxide Level 21 27 21-32 MMOL/L Anion Gap 4 L 5 5-14 MMOL/L Blood Urea Nitrogen 10 12 7-18 MG/DL Creatinine 0.63 0.80 0.60-1.30 MG/DL Estimat Glomerular Filtration Rate > 60 > 60 BUN/Creatinine Ratio 16 15 Glucose Level 84 108 H 70-105 MG/DL Calcium Level 6.1 L 7.8 L 8.5-10.1 MG/DL Phosphorus Level 2.1 L 2.6 2.3-4.7 MG/DL Magnesium Level 1.5 L 2.0 1.8-2.4 MG/DL Test 11/06/16 03:42 11/06/16 05:52 11/08/16 12:10 Range/Units White Blood Count 8.3 8.4 4.3-11.0 10^3/uL Red Blood Count 2.88 L 3.00 L 4.35-5.85 10^6/uL Hemoglobin 8.8 L 9.3 L 13.3-17.7 G/DL Hematocrit 27 L 28 L 40-54 % Mean Corpuscular Volume 93 93 80-99 FL Mean Corpuscular Hemoglobin 31 31 25-34 PG Mean Corpuscular Hemoglobin Concent 33 33 32-36 G/DL Red Cell Distribution Width 16.8 H 16.9 H 10.0-14.5 % Platelet Count 155 172 130-400 10^3/uL Mean Platelet Volume 10.9 H 10.8 H 7.4-10.4 FL Neutrophils (%) (Auto) 71 42-75 % Lymphocytes (%) (Auto) 18 12-44 % Monocytes (%) (Auto) 9 0-12 % Eosinophils (%) (Auto) 2 0-10 % Basophils (%) (Auto) 0 0-10 % Neutrophils # (Auto) 5.9 1.8-7.8 X 10^3 Lymphocytes # (Auto) 1.5 1.0-4.0 X 10^3 Monocytes # (Auto) 0.8 0.0-1.0 X 10^3 Eosinophils # (Auto) 0.1 0.0-0.3 10^3/uL Basophils # (Auto) 0.0 0.0-0.1 10^3/uL Sodium Level 140 141 135-145 MMOL/L Potassium Level 3.7 3.8 3.6-5.0 MMOL/L Chloride Level 109 H 109 H 98-107 MMOL/L Carbon Dioxide Level 25 25 21-32 MMOL/L Anion Gap 6 7 5-14 MMOL/L Blood Urea Nitrogen 16 17 7-18 MG/DL Creatinine 0.84 0.98 0.60-1.30 MG/DL Estimat Glomerular Filtration Rate > 60 > 60 BUN/Creatinine Ratio 19 17 Glucose Level 107 H 135 H 70-105 MG/DL Calcium Level 8.1 L 8.0 L 8.5-10.1 MG/DL Phosphorus Level 3.0 2.3-4.7 MG/DL Magnesium Level 1.9 1.8-2.4 MG/DL Troponin I 15.67 *H <0.30 NG/ML Lab Scanned Report Transfusion Reaction Form [id number] Micro Results Microbiology 11/03/16 MRSA Screen - Final, Complete MRSA not isolated My Orders Orders - MILEY BELTRAN MD Ct Head/Cervical Spine Wo (11/06/16 05:32) Basic Metabolic Panel (11/06/16 05:32) Cbc No Diff (11/06/16 05:32) Troponin I (11/06/16 05:32) Ekg Tracing (11/06/16 05:32) Ns Iv 1000 Ml (Sodium Chloride 0.9%) (11/06/16 05:36) Vital Signs/I&O Vital Sign - Last 12Hours 11/03/16 11/03/16 11/03/16 11/03/16 11:55 11:55 13:59 14:14 Temp 97.9 99.8 99.5 Pulse 89 83 87 Resp 18 18 16 B/P (MAP) 111/71 120/76 122/86 Pulse Ox 97 99 99 96 O2 Delivery Nasal Cannula O2 Flow Rate 2.00 11/03/16 11/03/16 11/03/16 11/03/16 14:56 15:15 15:15 15:36 Temp 99.5 100.7 Pulse 85 Resp 16 B/P (MAP) Pulse Ox 97 97 98 O2 Delivery Room Air O2 Flow Rate 2.00 11/03/16 11/03/16 11/03/16 11/03/16 16:00 16:15 16:30 16:56 Temp 100.7 100.7 Pulse 85 88 Resp 15 14 B/P (MAP) 135/86 129/74 Pulse Ox 95 97 97 O2 Delivery Room Air 11/03/16 11/03/16 11/03/16 11/03/16 16:59 17:00 17:20 18:00 Temp 100.4 100.2 Pulse 86 89 86 88 Resp 12 17 16 27 B/P (MAP) 135/86 121/74 121/74 108/67 Pulse Ox 94 97 96 O2 Delivery Room Air Room Air 11/03/16 11/03/16 11/03/16 11/03/16 19:00 19:00 19:05 20:00 Temp 100.6 Pulse 88 89 86 Resp 16 14 B/P (MAP) 116/81 142/80 Pulse Ox 98 98 O2 Delivery Nasal Cannula O2 Flow Rate 2.00 2.00 11/03/16 11/03/16 11/03/16 11/03/16 20:00 20:28 20:30 21:00 Temp 99.7 99.7 Pulse 84 79 85 Resp 38 20 14 B/P (MAP) 132/77 126/76 120/71 Pulse Ox 99 O2 Delivery Nasal Cannula Nasal Cannula Nasal Cannula O2 Flow Rate 2.00 2.00 2.00 11/03/16 11/03/16 11/03/16 11/04/16 21:11 22:00 23:00 00:00 Pulse 91 84 84 Resp 21 10 24 B/P (MAP) 105/64 100/57 137/83 O2 Delivery Room Air Room Air Room Air O2 Flow Rate 2.00 11/04/16 11/04/16 11/04/16 11/04/16 00:00 01:00 01:00 02:00 Pulse 74 73 76 Resp 24 10 B/P (MAP) 113/68 120/72 Pulse Ox 99 O2 Delivery Room Air Room Air 11/04/16 11/04/16 11/04/16 11/04/16 02:49 02:49 03:00 03:04 Temp 99.1 99.1 99.2 Pulse 77 77 75 75 Resp 18 18 6 18 B/P (MAP) 120/72 120/72 119/89 119/89 Pulse Ox 99 99 97 O2 Delivery Room Air 11/04/16 11/04/16 11/04/16 11/04/16 04:00 05:00 05:01 06:00 Temp 98.8 Pulse 78 75 77 75 Resp 8 17 20 28 B/P (MAP) 132/81 123/89 123/89 117/77 Pulse Ox 98 96 O2 Delivery Room Air Room Air Room Air 11/04/16 11/04/16 11/04/16 11/04/16 07:00 07:00 07:18 08:00 Pulse 77 78 80 Resp 28 25 B/P (MAP) 125/96 118/70 Pulse Ox 96 O2 Delivery Room Air Room Air O2 Flow Rate 2.00 11/04/16 11/04/16 11/04/16 11/04/16 09:00 10:00 11:00 12:00 Temp 99.2 Pulse 76 76 76 Resp 16 28 24 B/P (MAP) 107/63 116/65 100/60 O2 Delivery Room Air Room Air Room Air 11/04/16 11/04/16 11/04/16 11/04/16 13:00 13:00 14:00 15:00 Pulse 77 76 78 77 Resp 24 25 27 B/P (MAP) 121/77 110/70 118/76 O2 Delivery Room Air Room Air Room Air 11/04/16 11/04/16 11/04/16 11/04/16 16:00 16:00 17:00 18:00 Temp 100.2 Pulse 81 79 75 Resp 37 28 26 B/P (MAP) 114/86 110/65 107/67 O2 Delivery Room Air Room Air Room Air 11/04/16 11/04/16 11/04/16 11/04/16 19:00 19:00 20:00 20:00 Temp 101.1 100.5 Pulse 76 80 86 Resp 28 22 B/P (MAP) 124/70 118/70 O2 Delivery Room Air Room Air 11/04/16 11/04/16 11/04/16 11/04/16 21:00 21:21 21:23 21:55 Temp 100.5 100.0 Pulse 85 Resp 23 B/P (MAP) 112/65 Pulse Ox 96 O2 Delivery Room Air 11/04/16 11/04/16 11/05/16 11/05/16 22:00 23:00 00:00 01:00 Temp 100.5 Pulse 80 84 76 80 Resp 27 17 25 B/P (MAP) 110/68 132/79 95/51 O2 Delivery Room Air Room Air Room Air 11/05/16 11/05/16 11/05/16 11/05/16 01:00 02:00 03:00 04:00 Temp 98.3 Pulse 83 75 79 73 Resp 16 13 18 28 B/P (MAP) 105/65 93/64 109/68 96/60 Pulse Ox 94 94 97 O2 Delivery Room Air Room Air Room Air Room Air 11/05/16 11/05/16 11/05/16 11/05/16 05:00 06:00 07:00 07:00 Pulse 82 75 71 72 Resp 22 24 B/P (MAP) 96/74 106/52 106/76 Pulse Ox 94 96 O2 Delivery Room Air Room Air Room Air 11/05/16 11/05/16 11/05/16 11/05/16 08:10 09:00 10:00 11:00 Temp 99.6 Pulse 77 80 87 93 Resp B/P (MAP) 117/73 129/82 138/84 133/82 Pulse Ox 98 O2 Delivery Room Air Room Air Room Air Room Air 11/05/16 11/05/16 11/05/16 11/05/16 12:12 13:00 13:00 14:00 Temp 99.8 Pulse 86 78 77 82 Resp 16 B/P (MAP) 140/88 114/74 105/67 Pulse Ox 99 O2 Delivery Room Air Room Air Room Air 11/05/16 11/05/16 11/05/16 11/05/16 15:00 16:00 17:00 17:00 Temp 99.6 Pulse 79 83 95 Resp 25 B/P (MAP) 109/71 125/78 128/82 128/82 Pulse Ox 96 O2 Delivery Room Air Room Air Room Air Room Air 11/05/16 11/05/16 11/05/16 11/05/16 18:00 18:41 18:58 19:00 Temp 99.8 100.0 100.0 Pulse 85 85 97 82 Resp 20 14 B/P (MAP) 127/72 136/78 156/99 132/78 Pulse Ox 93 96 98 97 O2 Delivery Room Air Room Air 11/05/16 11/05/16 11/05/16 11/05/16 19:00 20:00 20:53 21:00 Temp 99.6 Pulse 96 80 75 79 Resp 13 15 B/P (MAP) 129/79 129/79 116/78 Pulse Ox 99 97 97 O2 Delivery Room Air Room Air 11/05/16 11/05/16 11/05/16 11/05/16 21:51 22:00 22:01 23:00 Temp 99.8 99.6 100.0 Pulse 79 79 79 79 Resp 17 B/P (MAP) 116/78 120/72 120/72 119/69 Pulse Ox 98 95 97 95 O2 Delivery Room Air Room Air 11/05/16 11/05/16 11/06/16 11/06/16 23:05 23:48 00:00 00:07 Temp 100.0 99.6 99.6 Pulse 79 71 71 Resp 15 14 14 B/P (MAP) 119/69 107/73 107/73 Pulse Ox 96 98 95 95 O2 Delivery Room Air 11/06/16 11/06/16 11/06/16 11/06/16 00:58 01:00 02:00 03:00 Pulse 68 65 65 66 Resp 22 10 28 B/P (MAP) 99/64 91/65 96/63 Pulse Ox 94 91 96 O2 Delivery Room Air Room Air Room Air 11/06/16 11/06/16 11/06/16 11/06/16 04:00 04:00 05:00 06:00 Temp 99.5 Pulse 61 59 71 Resp 21 14 15 B/P (MAP) 94/64 70/30 107/77 Pulse Ox 94 94 90 98 O2 Delivery Room Air Room Air Room Air 11/06/16 11/06/16 11/06/16 11/06/16 07:00 07:00 08:00 09:15 Temp 98.9 Pulse 63 66 70 Resp 25 18 B/P (MAP) 112/85 114/85 114/85 Pulse Ox 94 O2 Delivery Room Air Room Air Room Air 11/06/16 11/06/16 11/06/16 11/06/16 10:00 11:00 11:42 12:00 Pulse 65 71 70 Resp 25 25 25 B/P (MAP) 140/85 90/55 106/64 Pulse Ox 95 O2 Delivery Room Air Room Air Room Air 11/06/16 11/06/16 11/06/16 11/06/16 13:00 13:00 14:00 15:40 Pulse 63 65 62 65 Resp 7 16 18 B/P (MAP) 109/69 112/94 114/85 Pulse Ox 95 O2 Delivery Room Air Room Air Blood Pressure Mean: 100 Progress Note : Progress Note Patient was seen and assessed. C-collar was applied. CT of the head and cervical spine was ordered. EKG was reviewed. Patient remained on the floor until he can be safely moved on a spine board. Time spent with this patient was from 05:22 through 05:35. Hospitalist and eICU. Nursing staff to provide updates. ASSESSMENT: Fall from same level Head contusion Hypertension ECG Initial ECG Impression Date: Nov 06, 2016 Initial ECG Impression Time: 05:41 Initial ECG Rate: 64 Initial ECG Rhythm: Normal Sinus Comment Sinus rhythm with no ST elevation or depression. No significant interval changes or axis deviation Clinical Quality Measures DVT/VTE Risk/Contraindication: Risk Factor Score Per Nursin RFS Level Per Nursing on Admit: 4+=Very High MILEY BELTRAN MD Nov 09, 2016 06:52
--- NOTE | 2016-11-09 08:04 | ECHOCARDIOGRAPHY REPORT ---
PROCEDURE PHYSICIAN: LA KC DATE OF PROCEDURE: 11/05/2016 TWO DIMENSIONAL ECHOCARDIOGRAM REPORT PRIMARY PHYSICIAN: OTHER PHYSICIAN: REFERRING PHYSICIAN: ORDERING PHYSICIAN: ATTENDING PHYSICIAN: Dr. Walotn FAMILY PHYSICIAN: PERFORMING PHYSICIAN: Dr. Cain Kc INDICATION FOR THE PROCEDURE: Non-ST elevation [place]. MEASUREMENTS DERIVED VALUES LV DIAMETER (LAX) NORMALS NORMALS Diastolic (3.6-5.2) Eject. Fract. (60%+/-6%) Systolic (2.3-3.9) Diastolic Vol. % Shortening (0.22-0.42) Systolic Vol. Aortic Root IVS THICKNESS Diastolic (0.6-1.1) LVPW THICKNESS Diastolic (0.6-1.1) LA DIAMETER Systolic (2.1-3.7) FINDINGS: 1. Sinus rhythm. 2. Left atrial dimensions are normal. 3. Aortic root dimensions are normal. 4. Left ventricular systolic function is borderline normal. LV EF is 50%. Mild concentric LVH is present. Diastolic intraventricular septal diameter is 1.3 cm. 5. There is wall motion in the anterior and septal wall is normal. There is lateral and inferior hypokinesis noted. 6. RV size and function is normal. 7. There is no diastolic dysfunction. 8. There is no evidence of pericardial effusion. 9. IVC is normal. VALVULAR STRUCTURE OF THE HEART: There is mild tricuspid regurgitation with mild mitral regurgitation. There is mild pulmonic insufficiency with trace aortic insufficiency. Aortic valve cusps are thickened. CONCLUSION: 1. LV function is borderline normal with an EF of 50%. There is mild concentric LVH. 2. There is lateral and inferior hypokinesis is noted. 3. There is no significant valvular heart disease. 4. RVSP is 39 mmHg which suggests mild to moderate pulmonary hypertension. Job ID: [id number] Dictated Date: 11/08/2016 14:45:32 Manager Long Term Care Date: 11/09/2016 07:46:42 / kassandra TOLEDO
--- NOTE | 2016-11-21 17:02 | Discharge Summary ---
Diagnosis/Chief Complaint Date of Admission Nov 03, 2016 at 14:20 Date of Discharge Nov 06, 2016 at 15:40 Admission Diagnosis Admission Diagnosis GI Bleed -- Hematemesis and Melena Anemia Elevated Troponin Discharge Diagnosis GI Bleed secondary to Duodenal Ulcer Anemia NSTEMI with very high troponin Fall with Mild contusion Reason Hospital Visit Pt is a 71 yo male who presented with black tarry stools and coffee ground emesis. He also complained of "heartburn" going through to his back and some shoulder pain. He was initially seen right when he came in to the ER, but just now putting note in. HPI: Here with report of onset of black stools 2-3 days ago. Seen by his primary care provider at that time and had his meloxicam and aspirin stopped. Today, early this morning, he had coffee-ground emesis. He was later able to eat a little bit and has not had return of emesis since. He still has black stools. He had a hemoglobin of 11.2 2 days ago for his primary care provider; in the ER it was 8.6. He does complain of some bilateral shoulder pain as well as mid chest pain earlier that has gotten better now. Denies fever or chills. Does admit to weakness. Timing/Duration: 3-4 Days, Getting Worse, Intermittent Severity/Quality: Mild, Aching. Rating it as a 3-4 out of 10 on a 1-10 scale. Location: Epigastric Radiation: Chest Activities at Onset: None Associated Symptoms: No Back Pain, Chest Pain, No Diaphoresis, No Fever/Chills , Nausea/Vomiting, No Shortness of Air, Weakness Discharge Summary Procedures: EGD with biopsy Echocardiogram Consultations Cardiology - Dr. Kc Surgery- Dr. Galindo Discharge Physical Examination Allergies: Coded Allergies: No Known Drug Allergies (Unverified , 11/17/16) General Appearance: Alert, Oriented X3 HEENT: PERRLA, EOMI Cardiovascular: Regular Rate, No Murmurs Abdominal: Normal Bowel Sounds, No Tenderness, No Hepatosplenomegaly Neuro: Normal Gait, Normal Speech Hospital Course Pt presented with hematemesis and melena. Profound anemia. He also had elevated troponin. Cardiology consult ordered. EGD performed; which showed non- bleeding ulcer. On hospital day 2, he had been given 3 units of PRBC with no change in Hg and his repeat troponin came back at 30. He was kept in the hospital for close monitoring and Echocardiogram. Followed by Cardiology and surgery. His Hg remained stable he had no further episodes of bleeding; but, did get another 2 units of PRBC's and his Hg finally increased. While in the hospital he had an unwitnessed fall; possibly vaso-vagal and code blue had been initiated. He had CT of head performed and no intracranial bleed was found, c- spine cleared. He improved slowly and was sent home on 11/06 in stable condition. Told to follow up as outpt with surgery and Cardiology. Cardiology started him out on mild blood thinners for the NSTEMI. Discharge Instructions to patient/family Please see electonic discharge instructions given to patient. Discharge Medications Reviewed and agree with Discharge Medication list on patient's Discharge Instruction sheet Clinical Quality Measures DVT/VTE Risk/Contraindication: Risk Factor Score Per Nursin RFS Level Per Nursing on Admit: 4+=Very High MAHESH BAUMANN DO Nov 21, 2016 17:02
--- OUTSIDE RECORDS SUMMARY | 2016-11-27 06:26 | XMS REPORT | Continuity of Care Document ---
Author Author [employer] Organization [facility] Address Unknown Phone Unavailable Care Team Providers Care Society Reporter Name Role Phone [employer] Unavailable Unavailable Problems Medications Allergies, Adverse Reactions, Alerts Immunizations Results Vital Signs Encounters Procedures Plan of Care Social History Assessment and Plan Family History Value Date Source Advance Directives Order Name Results Value Date Source
--- OUTSIDE RECORDS SUMMARY | 2016-11-27 06:27 | XMS REPORT ---
Author Author Junito Walker [facility] eClinicalWorks Address Unknown Phone Unavailable Care Team Providers Care Fender Mechanic Apprentice Name Role Phone Junito Walker CP Unavailable Allergies, Adverse Reactions, Alerts Substance Reaction Event Type N.K.D.A. Info Not Available Non Drug Allergy Problems Problem Type Condition ICD-9 Code Onset Dates Condition Status Problem Backache; unspecified 724.5 Active Problem Nocturia 788.43 Active Problem Dietary surveillance and counseling V65.3 Active Problem Hyperlipidemia 272.4 Active Problem Elevated PSA 790.93 Active Problem Fatigue 780.79 Active Problem Abdominal pain, unspecified site 789.00 Active Problem Other general symptoms 780.99 Active Problem Skin and subcutaneous tissue disease 709.9 Active Problem Adult Wellness Exam V70.0 Active Assessment Fatigue 780.79 Active Assessment Elevated PSA 790.93 Active Assessment Abdominal pain, unspecified site 789.00 Active Assessment Hyperlipidemia 272.4 Active Problem Depressive disorder, not elsewhere classified 311 Active Problem Pain in soft tissues of limb 729.5 Active Problem Allergic rhinitis, cause unspecified 477.9 Active Problem Pain in joint, pelvic region and thigh 719.45 Active Problem 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 Citalopram Hydrobromide [facility] [id number] 40MG once a day half Procedures Procedure Coding System Code Date CBC CPT-4 54942 January 13, 2015 COMP PROFILE CPT-4 08242 January 13, 2015 LIPID PROFILE CPT-4 32073 January 13, 2015 URINE CULTURE CPT-4 68391 January 13, 2015 OFFICE VISITEST PT CPT-4 50289 January 13, 2015 TSH CPT-4 17131 January 13, 2015 T4 CPT-4 51268 January 13, 2015 PSA,TOTAL CPT-4 97022 January 13, 2015 URINALYSIS CPT-4 42266 January 13, 2015 Vital Signs Date/Time: January 13, 2015 Blood Pressure Systolic 124 mm Hg Height 72 in Weight 195 lbs BMI 26.44 Index Blood Pressure Diastolic 76 mm Hg Results Name Result Date Reference Range Unit Abnormality Flag LIPID PROFILE ----HDL-DIRECT 53 [id number] 35-55 MG/DL ----LDL-DIRECT 117 [id number] 0-99 MG/DL H ----CHOL/HDL 3.3 19273519 4.0-6.7 RATIO L ----CHOLESTEROL 174 62464107 50-200 MG/DL ----TRIGLYCERIDE 106 43551289 30-150 MG/DL T4 ----T4 6.4 99829994 4.6-12.0 ?g/dL CBC ----MCV 95.5 32329281 80.0-94.0 FL H ----HCT 45.0 68017115 39.0-49.0 % ----MCHC 32.9 03944010 32.0-36.0 G/DL ----MCH 31.4 72440899 26.0-32.0 PG ----EO# 0.2 54079158 0.0-0.2 X10^3/UL ----PLT 204 18149408 130-400 X10^3 ----EO% 2.9 12998279 0.0-3.0 % ----RDW 13.7 40576825 11.5-15.5 % ----MO# 0.6 80578152 0.1-0.6 X10^3/UL H ----MO% 7.8 57846292 1.7-9.3 % ----LY# 2.6 [id number] 1.2-3.4 X10^3/UL ----BA# 0.0 09755109 0.0-0.1 X10^3/UL ----BA% 0.3 13059982 0.0-1.0 % ----HGB 14.8 17958593 13.8-17.0 G/DL ----RBC 4.71 12972172 4.50-5.70 X10^6 ----MPV 10.6 08831396 9.0-12.1 FL ----WBC 7.3 75120398 4.0-10.0 X10^3/UL ----NE% 53.8 47460915 42.2-75.2 % ----NE# 4.0 [id number] 1.4-6.5 X10^3/UL ----LY% 35.1 56348023 20.5-51.1 % COMPREHENSIVE CHEM PROFILE ----SODIUM 140 87916855 133-145 MMOL/L ----TOTAL BILI 0.47 97774791 0.00-1.00 MG/DL ----CHLORIDE 103 31035202 96-108 MMOL/L ----POTASSIUM 4.1 35662408 3.3-5.1 MMOL/L ----CALCIUM 9.6 78807735 8.7-10.3 MG/DL ----AST/SGOT 16 79061916 5-40 U/L ----CO2 26 88809622 23-31 MMOL/L ----TOTAL PROTEIN 7.3 18446373 5.9-8.4 G/DL ----eGFR If Am 89 18594946 >60 ml/min/1.73m^2 ----ALBUMIN 4.4 96441093 3.2-5.2 G/DL ----eGFR If Non Am 74 19351307 >60 ml/min/1.73m^2 ----BUN 24 36955681 8-23 MG/DL H ----ALT/SGPT 17 43836116 5-40 U/L ----ALK PHOS 61 69368605 34-114 U/L ----CREATININE 1.0 82086689 0.5-1.2 MG/DL ----GLUCOSE 104 00521336 60-99 MG/DL H ----GLOBULIN 2.9 30207232 2.0-4.4 G/DL Urinalysis ----MUCOUS 0 79655220 NONE/HPF hpf ----CRYSTALS 0 81825858 NONE/HPF hpf ----BACTERIA 1+ 21908088 NONE/HPF hpf ----SQUAMOUS EPITH OCCASIONAL 55998761 FEW/HPF hpf ----OTHER CASTS 0 40826185 NONE/LPF lpf ---- RBC 1-3 82759148 0-2/HPF hpf ---- WBC 12-15 39450324 0-5/HPF hpf PSA, Total (Reflex to Free) use as serial monitor #[id number] TSH ----TSH 0.89 28961552 0.40-5.00 ?IU/ML PSA ----PSA 4.8 52779559 0.0-4.0 NG/ML H Summary Purpose eClinicalWorks Submission
--- OUTSIDE RECORDS SUMMARY | 2016-11-27 06:27 | XMS REPORT ---
Author Author ALFIE CASTAÑEDA Organization [facility] Address [address] [place] [address] Care Team Providers Care Laborer Cutting Tool Name Role Phone ROBERTSRI ALFIE Unavailable PROBLEMS Type Condition ICD9-CM Code [id number] Code Onset Dates Condition Status SNOMED Code Problem Benign non-nodular prostatic hyperplasia with lower urinary tract symptoms N40.1 Active 482237544 Problem Cerebrovascular accident (CVA) due to occlusion of left middle cerebral artery I63.512 Active 989759754 Assessment Cerebrovascular accident (CVA) due to occlusion of left middle cerebral artery I63.512 Jul, Active 877477086 ALLERGIES Substance Reaction Event Type Date Status N.K.D.A. Unknown Non Drug Allergy Jul, Unknown SOCIAL HISTORY No smoking Hx information available PLAN OF CARE Activity Details Pending Test PSA 3 Months,Reason: VITAL SIGNS Height 72.25 in 2016-07-15 Weight 192.6 lbs 2016-07-15 Heart Rate 64 bpm 2016-07-15 Respiratory Rate 18 2016-07-15 BMI 25.94 kg/m2 2016-07-15 Blood pressure systolic 124 mmHg 2016-07-15 Blood pressure diastolic 76 mmHg 2016-07-15 MEDICATIONS Medication Instructions Dosage Frequency Start Date End Date Duration Status Meloxicam 15 MG 1 tablet Active Eliquis 5 MG Active Lipitor 10 MG Active Loratadine 10 MG Orally PRN Active Aspir-81 81 MG Orally Once a day 1 tablet 24h Active Lortab 7.5 Active Citalopram Hydrobromide 20 MG Orally Once a day 24h Active Fexofenadine HCl Active RESULTS Name Result Date Reference Range PSA 2016-07-15 Prostate Specific Ag, Serum 5.8 0.0-4.0 PROCEDURES Procedure Date Ordered Related Diagnosis Body Site ROUTINE VENIPUNCTURE 2016-07-15 N/A ASSAY OF PSA, TOTAL Jul 15, 2016 VENIPUNCT, ROUTINE* Jul 15, 2016 Office Visit, New Pt., Level 3 Jul 15, 2016 IMMUNIZATIONS No Known Immunizations
--- OUTSIDE RECORDS SUMMARY | 2016-11-27 06:27 | XMS REPORT ---
Author Junito Del Valle [facility] eClinicalWorks Address Unknown Phone Unavailable Care Team Providers Care Retail Operations Specialist Name Role Phone Junito Walker Unavailable Allergies, Adverse Reactions, Alerts Substance Reaction Event Type N.K.D.A. Info Not Available Non Drug Allergy Problems Problem Type Condition Code Onset Dates Condition Status Problem Adult Wellness Exam V70.0 Active Problem Bilateral low back pain without sciatica M54.5 Active Problem Nocturia R35.1 Active Problem Other fatigue R53.83 Active Assessment Primary insomnia F51.01 Active Problem Hyperlipidemia, unspecified E78.5 Active Assessment Other fatigue R53.83 Active Assessment Other malaise R53.81 Active Problem Primary insomnia F51.01 Active Problem Skin and subcutaneous tissue disease 709.9 Active Problem Elevated prostate specific antigen (PSA) R97.2 Active Problem Hyperlipidemia 272.4 Active Problem Other malaise R53.81 Active Problem 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 Problem Depressive disorder, not elsewhere classified 311 Active Assessment Elevated prostate specific antigen (PSA) R97.2 Active Problem Allergic rhinitis, cause unspecified 477.9 Active Problem Pain in joint, multiple sites 719.49 Active Problem Dietary surveillance and counseling V65.3 Active Problem Pain in soft tissues of limb 729.5 Active Problem Other general symptoms 780.99 Active Assessment Hyperlipidemia, unspecified E78.5 Active Problem Pain in joint, pelvic region and thigh 719.45 Active Problem Abdominal pain, unspecified site 789.00 Active Medications Medication Code System Code Instructions Start Date End Date Status Dosage Citalopram Hydrobromide [facility] 76055395873 40MG TAKE ONE TABLET BY MOUTH ONCE DAILY Meloxicam [facility] 88440718030 15MG TAKE ONE TABLET BY MOUTH ONCE DAILY Cialis [facility] 85122995159 20 MG Not Specified TAKE ONE TABLET BY MOUTH 45 MINUTES PRIOR. Gabi [facility] [address]-68 180 MG ORAL qD Jun 12, 2008 1 (one) TABLET qD Ciprofloxacin HCl [facility] [address]-26 500 MG Orally Twice a day Aug 12, 2015 1 tablet Procedures Procedure Coding System Code Date COMP PROFILE CPT-4 17839 Aug 10, 2015 LIPID PROFILE CPT-4 40177 Aug 10, 2015 CBC CPT-4 86575 Aug 10, 2015 OFFICE VISITEST PT CPT-4 38597 Aug 10, 2015 PSA,TOTAL CPT-4 14899 Aug 10, 2015 Vital Signs Date/Time: Aug 10, 2015 Blood Pressure Systolic 122 mm Hg Height 72 in Weight 190 lbs BMI 25.77 Index Blood Pressure Diastolic 75 mm Hg Results Name Result Date Reference Range Unit Abnormality Flag LIPID PROFILE ----HDL-DIRECT 56 [id number] 35-55 MG/DL H ----LDL-DIRECT 117 28192334 0-99 MG/DL H ----CHOL/HDL 3.3 22787466 4.0-6.7 RATIO L ----CHOLESTEROL 183 35087222 50-200 MG/DL ----TRIGLYCERIDE 118 72892440 30-150 MG/DL PSA ----PSA 5.5 48874709 0.0-4.0 NG/ML H CBC ----MCV 95.4 50331025 80.0-94.0 FL H ----HCT 48.0 00027366 39.0-49.0 % ----MCHC 32.7 65175026 32.0-36.0 G/DL ----MCH 31.2 71702616 26.0-32.0 PG ----EO# 0.1 81452331 0.0-0.2 X10^3/UL ----PLT 212 59611808 130-400 X10^3 ----EO% 1.3 71625033 0.0-3.0 % ----RDW 13.6 43547258 11.5-15.5 % ----MO# 0.6 23444223 0.1-0.6 X10^3/UL H ----MO% 7.5 37358786 1.7-9.3 % ----LY# 2.6 92091870 1.2-3.4 X10^3/UL ----BA# 0.0 45068051 0.0-0.1 X10^3/UL ----BA% 0.4 96384397 0.0-1.0 % ----HGB 15.7 48608017 13.8-17.0 G/DL ----RBC 5.03 22638405 4.50-5.70 X10^6 ----MPV 10.6 77620540 9.0-12.1 FL ----WBC 8.2 44309009 4.0-10.0 X10^3/UL ----NE% 59.3 81842670 42.2-75.2 % ----NE# 4.8 87059040 1.4-6.5 X10^3/UL ----LY% 31.3 60823613 20.5-51.1 % COMPREHENSIVE CHEM PROFILE ----SODIUM 142 04351511 133-145 MMOL/L ----TOTAL BILI 0.50 28259856 0.00-1.00 MG/DL ----CHLORIDE 101 33562780 96-108 MMOL/L ----POTASSIUM 4.3 88434520 3.3-5.1 MMOL/L ----CALCIUM 9.5 85450110 8.7-10.3 MG/DL ----AST/SGOT 16 42942075 5-40 U/L ----CO2 29 71985672 23-31 MMOL/L ----TOTAL PROTEIN 7.8 84799298 5.9-8.4 G/DL ----eGFR If Am 89 69356469 >60 ml/min/1.73m^2 ----ALBUMIN 4.6 70039901 3.2-5.2 G/DL ----eGFR If Non Am 73 51079610 >60 ml/min/1.73m^2 ----BUN 19 30778377 8-23 MG/DL ----ALT/SGPT 16 63080474 5-40 U/L ----ALK PHOS 67 48750024 34-114 U/L ----CREATININE 1.0 37881302 0.5-1.2 MG/DL ----GLUCOSE 89 09162527 60-99 MG/DL ----GLOBULIN 3.2 32426357 2.0-4.4 G/DL PSA, Total (Reflex to Free) use as serial monitor #[id number] %fPSA Reflex ----% Free PSA 20.9 20150810 % ----PSA, Free 1.11 20150810 N/A ng/mL Summary Purpose eClinicalWorks Submission
--- OUTSIDE RECORDS SUMMARY | 2016-11-27 06:27 | XMS REPORT ---
Author Junito Del Valle [facility] eClinicalWorks Address Unknown Phone Unavailable Care Team Providers Care Lift Team Technician Name Role Phone Junito Walker CP Unavailable Allergies, Adverse Reactions, Alerts Substance Reaction Event Type N.K.D.A. Info Not Available Non Drug Allergy Problems Problem Type Condition Code Onset Dates Condition Status Problem Nocturia R35.1 Active Problem Elevated prostate specific antigen (PSA) R97.2 Active Problem Bilateral low back pain without sciatica M54.5 Active Problem Primary insomnia F51.01 Active Assessment Lumbago with sciatica, left side M54.42 Active Problem Other fatigue R53.83 Active Problem Lumbago with sciatica, left side M54.42 Active Problem Other malaise R53.81 Active Problem Skin and subcutaneous tissue disease 709.9 Active Problem Hyperlipidemia, unspecified E78.5 Active Problem Hyperlipidemia 272.4 Active Problem Depressive disorder, not elsewhere classified 311 Active Problem Pain in soft tissues of limb 729.5 Active Problem Allergic rhinitis, cause unspecified 477.9 Active Problem 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 [id number] 40MG TAKE ONE TABLET BY MOUTH ONCE DAILY Cialis [facility] 54424921766 20 MG Not Specified TAKE ONE TABLET BY MOUTH 45 MINUTES PRIOR. Voltaren [facility] [address]-54 75 mg ORALLY BID with food February 26, [address] [facility] 72292337783 15MG TAKE ONE TABLET BY MOUTH ONCE DAILY Medrol (Skip) [facility] [address]-94 4 mg Orally February 26, [address] [facility] [address]-13 180 MG ORAL qD Jun 12, 2008 1 (one) TABLET qD Flexeril [facility] [address]-99 10 MG ORALLY 1 EVERY 8 HRS for muscle spasm February 26, 2016 1 TABLET Procedures Procedure Coding System Code Date OFFICE VISITEST PT CPT-4 69589 February 26, 2016 Vital Signs Date/Time: February 26, 2016 Blood Pressure Systolic 106 mm Hg Height 72 in Weight 189.8 lbs BMI 25.74 Index Blood Pressure Diastolic 66 mm Hg Results No Known Results Summary Purpose eClinicalWorks Submission
--- OUTSIDE RECORDS SUMMARY | 2016-11-27 06:28 | XMS REPORT ---
Author Author Junito Walker Organization eClinicalWorks Address Unknown Phone Unavailable Care Team Providers Care Sales Executive Name Role Phone Junito Walker CP Unavailable Allergies No Known Allergies Problems Problem Type Condition Code Onset Dates Condition Status Problem Nocturia R35.1 Active Problem Elevated prostate specific antigen (PSA) R97.2 Active Problem Bilateral low back pain without sciatica M54.5 Active Problem Primary insomnia F51.01 Active Problem Other fatigue R53.83 Active Problem [...] Instructions Start Date End Date Status Dosage Sudafed 12 Hour [facility] [address]-23 120 MG Orally every 12 hrs Jun 13, 2016 1 tablet as needed Results No Known Results Summary Purpose eClinicalWorks Submission
--- OUTSIDE RECORDS SUMMARY | 2016-11-27 06:42 | XMS REPORT | Continuity of Care Document ---
Author Author [employer] [facility] Address Unknown Phone Unavailable Care Team Providers Care Practice Specialist Name Role Phone [employer] Unavailable Unavailable Problems Medications Allergies, Adverse Reactions, Alerts Immunizations Results Vital Signs Encounters Procedures Plan of Care Social History Assessment and Plan Family History Value Date Source Advance Directives Order Name Results Value Date Source
== END 2016-11-06 15:40 | disposition home or self-care (01) | DRG 377 ==
LOC: DELPENDDIS → EDUNIT# 11:51 → ER 11:53 → ICU 14:20
PROVIDERS: ADMIT Surgery; ATTEND Surgery
PROC: 0DB98ZX Excision of Duodenum, Via Natural or Artificial Opening Endoscopic, Diagnostic (ICD-10-PCS; principal; 2016-11-03 19:20)
DX: K26.4 Chronic or unspecified duodenal ulcer with hemorrhage (principal); I21.4 Non-ST elevation (NSTEMI) myocardial infarction; D64.9 Anemia, unspecified; I45.81 Long QT syndrome; I24.8 Other forms of acute ischemic heart disease; R79.89 Other specified abnormal findings of blood chemistry; I25.10 Atherosclerotic heart disease of native coronary artery without angina pectoris; N40.0 Benign prostatic hyperplasia without lower urinary tract symptoms; M19.91 Primary osteoarthritis, unspecified site; F32.9 Major depressive disorder, single episode, unspecified; H91.90 Unspecified hearing loss, unspecified ear; Z86.73 Personal history of transient ischemic attack (TIA), and cerebral infarction without residual deficits; Z79.82 Long term (current) use of aspirin; R51 Headache; M54.2 Cervicalgia; W19.XXXA Unspecified fall, initial encounter; Y99.8 Other external cause status; Y92.231 Patient bathroom in hospital as the place of occurrence of the external cause
CPT/HCPCS: 36415; 70450; 71010; 72125; 80048; 80053; 83735; 84100; 84484; 85007; 85014; 85018; 85025; 85027; 85610; 85730; 86850; 86900; 86901; 86920; 87081; 88305; 93005; 93041; 93306; 96361; 96365; 96375

== ENCOUNTER → 2016-11-10 | Outpatient (CLI) | payer MEDICARE ==
[~2016-11-10] VITALS: Ht 182.9 cm; Wt 86.2 kg
[~2016-11-10] MED LIST changes: +ACET-93 PO; +ASPI-983 PO; +ATOR40TA PO; +ATOR40TA70 PO; +CATHETER FLUSH 10 ML SYR IV PRN; +CLOP75TA28 PO; +CLOP75TA69 PO; +LISI-556 PO; +METO-333 PO; +MULT1TAB69 PO; +OMEP20CA12 PO; +OMEP20TA33 PO; +PANT40TA2 PO; +PANT40TA3 PO; +REGADENOSON 0.4 MG/5 ML SYR (LEXISCAN) IV ONE; +SUCR1TAB PO
[2016-11-10 13:17] VITALS: BP 152/87
[2016-11-10 13:20] VITALS: BP 145/87
--- NOTE | 2016-11-14 13:54 | STRESS TEST ---
PROCEDURE PHYSICIAN: LA KC DATE OF PROCEDURE: 11/10/2016 PHARMACOLOGICAL NUCLEAR STRESS TEST REPORT: PRIMARY PHYSICIAN: Dr. Gregg Matthews ATTENDING PHYSICIAN: Dr. Cain Kc DIAGNOSES: nstemi, GI bleeding. PROCEDURE DETAILS: The patient was brought to the stress lab after informed consent was taken. Lexiscan stress test was performed according to the protocol. 0.4 mg of Lexiscan was given intravenously. Low grade exercise was performed. Baseline EKG shows sinus rhythm with heart rate of 73 bpm. Blood pressure was 152/87 mmHg. Maximum heart rate was 93 bpm and blood pressure was 155/89 mmHg. The patient did not have any ST changes or chest pain during the protocol. PVCs were noted during stress testing. 10.24 mCi of Myoview were given for rest images and 29.6 mCi of Myoview were given for the rest images. Review of the perfusion images showed TID of 1.04. Ejection fraction of 28%. There was a large severe inferior lateral fixed with reversible component defect. There was also inferior and lateral hypokinesis. SSS was 28, SRS 22 and SDS 6. CONCLUSION: 1. Pharmacological stress test is negative for ischemia. 2. 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 Job ID: [id number] Dictated Date: 11/14/2016 13:10:00 E Business Specialist Date: 11/14/2016 13:48:58 / kassandra TOLEDO
== END ==
LOC: CARD 11:43
PROVIDERS: ATTEND Internal Medicine Interventional Cardiology
DX: I48.91 Unspecified atrial fibrillation (principal); I24.8 Other forms of acute ischemic heart disease
CPT/HCPCS: 78452; 93017

== ENCOUNTER 2016-11-17 05:51 | Outpatient (CLI) | payer MEDICARE ==
[~2016-11-17] VITALS: Ht 182.9 cm; Wt 86.2 kg
[~2016-11-17 05:51] MED LIST changes: -ATOR40TA70 PO; -CATHETER FLUSH 10 ML SYR IV PRN; -CLOP75TA28 PO; -PANT40TA3 PO; -REGADENOSON 0.4 MG/5 ML SYR (LEXISCAN) IV ONE
== END 2016-11-17 13:28 ==
LOC: PREOP 05:51
PROVIDERS: ATTEND Surgery Pediatric Surgery
DX: Z01.818 Encounter for other preprocedural examination (principal); K92.2 Gastrointestinal hemorrhage, unspecified

== ENCOUNTER → 2016-11-18 | Day surgery (SDC) | payer MEDICARE ==
[~2016-11-18] VITALS: Ht 182.9 cm; Wt 86.2 kg
[~2016-11-18] MED LIST changes: +ACETAMINOPHEN 325 MG TABLET/CAPLET (TYLENOL) PO PRN; +ATOR40TA70 PO; +CLOP75TA28 PO; +FLUMAZENIL (ROMAZICON) 0.1 MG/ML 5 ML VIAL INJ PRN; +HYDROcodone/APAP 5 MG/325 MG (LORTAB) TAB PO ONE; +LIDOCAINE JELLY 2% (XYLOCAINE) 5 ML TUBE ONE; +NALOXONE 0.4 MG/ML 1 ML (NARCAN) VIAL IVP PRN; +NS IV 500 ML 500 ML IV ONE; +ONDANSETRON 4 MG/2 ML (SDV) Z0FRAN IVP PRN; +PANT40TA3 PO; +fentaNYL INJECTION 100 MCG/2 ML AMP ONE; +morphine INJ 10 MG/ML 1ML (SYR OR VIAL) IVP PRN
[2016-11-18 10:23] VITALS: BP 132/77
--- NOTE | 2016-11-18 10:41 | Conscious Sedation/ASA ---
Conscious Sedation Pre-Proced Time Reviewed: 10:40 ASA Class: 3 Airway Mallampati Classification: ([place] appropriate class) I. II. III, IV Lungs Heart ASA score ASA 1: a normal healthy patient ASA 2: a patient with a mild systemic disease (mid diabetes, controlled hypertension, obesity ASA 3: a patient with a severe systemic disease that limits activity (angina , COPD, prior Myocardial infarction) ASA 4: a patient with an incapacitating disease that is a constant threat to life (CHF, renal failure) ASA 5: a moribund patient not expected to survive 24 hrs. (ruptured aneurysm) ASA 6: a declared brain patient whose organs are being harvested. For emergent operations, add the letter E after the classification Grade 2 Sedation Plan: Analgesia, Amnesia, Plan communicated to team members, Discussed options with patient/fam, Discussed risks with patient/fam Note The patient is an appropriate candidate to undergo the planned procedure, sedation, and anesthesia. The patient immediately re-assessed prior to indication. RICH MCKAY MD Nov 18, 2016 10:41 am
--- NOTE | 2016-11-18 10:42 | Progress Note-Pre Operative ---
Pre-Operative Progress Note H&P Reviewed The H&P was reviewed, patient examined and no changes noted. Date H&P Reviewed: Nov 18, 2016 Time H&P Reviewed: 10:40 Pre-Operative Diagnosis: GI bleed, anemia, NSTEMI RICH MCKAY MD Nov 18, 2016 10:42 am
[2016-11-18] MEDS: fentaNYL INJECTION 100 MCG/2 ML AMP IVP PRN ×2 (11:18→11:25)
[2016-11-18] MEDS: MIDAZOLAM 2 MG/2 ML (VERSED) VIAL IVP PRN ×2 (11:20→11:27)
--- NOTE | 2016-11-18 11:47 | Progress Note-Post Operative ---
Post-Operative Progess Note Surgeon (s)/[employer] (s) Surgeon RICH MCKAY MD [employer]: nonw Pre-Operative Diagnosis GI bleed, anemia, NSTEMI Post-Operative Diagnosis mild chronic stage 2 ext and int hemorrhoids. mild sigmoid diverticulosis. Post-Op Procedure Note Date of Procedure: Nov 18, 2016 Name of Procedure Performed: Colonoscopy Description of the Procedure: Colonoscopy Findings of the Procedure . Anesthesia Type CS Estimated blood loss (mL): minimal Specimen(s) collected/removed none RICH MCKAY MD Nov 18, 2016 11:47 am
--- NOTE | 2016-11-18 11:48 | Discharge Inst-Surgical ---
D/C Lap Instructions-WOODY Follow Up PRN Activity as tolerated High Fiber Diet 25g or more per day Avoid Alcohol, Caffeine, Spicy [place] and Acid foods. Drink 64 fluid oz or more of fluids per day. Symptoms to Report: Fever over 101 degree F, Nausea/Vomiting If any problems/questions: Contact your physician or go to Emergency Room RICH MCKAY MD Nov 18, 2016 11:48 am
[2016-11-18 12:00] VITALS: BP 98/60
[2016-11-18 12:30] VITALS: BP 118/74
[2016-11-18 12:41] VITALS: BP 118/74
--- NOTE | 2016-11-21 11:46 | OPERATIVE REPORT ---
PROCEDURE PHYSICIAN: RICH GALINDO DATE OF PROCEDURE: 11/18/2016 ATTENDING PRIMARY CARE PHYSICIAN: Dr. Gregg Matthews. PREOPERATIVE DIAGNOSES: 1. History of GI bleed. 2. Anemia. 3. Gkp-CY-wvsmjbt elevation myocardial infarction. POSTOPERATIVE DIAGNOSES: 1. Chronic stage II external and internal hemorrhoids. 2. Mild sigmoid diverticulosis. PROCEDURE: Colonoscopy. SURGEON: Dr. Galindo. ANESTHESIA: Conscious sedation. ESTIMATED BLOOD LOSS: Minimal. FINDINGS: 1. Chronic, stage II external and internal hemorrhoids, not actively edematous or inflamed and no bleeding. 2. Prostate gland was palpable and appeared normal. 3. There was a mild sigmoid diverticulosis. 4. There were no mucosal inflammatory changes, as well as no polyps or any bleeding sources identified. DISPOSITION: The patient tolerated the procedure well. Mr. Efrain Rich is a 71-year-old male known to us. This gentleman was initially seen June 2016 after a fall and found to have a 3rd, 4th as well as 7th and 8th rib fractures on the left and 5th and 6th rib fractures on the right. Since that time he has done well. He was seen in the emergency department for black tarry stools, as well as coffee-ground emesis and a hemoglobin of 8.6. He was admitted and resuscitated and underwent an EGD and found to have an ulcer. At the time, he was also to also taking aspirin and Plavix for history of coronary artery disease. During that admission his troponin was severely elevated too, and cardiology was consulted and he was found to have non-ST segment elevation myocardial infarction. He is scheduled to undergo cardiac catheterization and evaluation for possible septal defect. During this process, he will need to undergo extensive anticoagulation and will need a colonoscopy done. His last colonoscopy was done 10 years ago and he believes that to be normal. PROCEDURE: The patient was brought to the endoscopy suite, laid in the left lateral decubitus position. After adequate IV pain and sedative medications and conscious sedation anesthesia, a digital rectal examination was performed. Mild chronic, stage II external and internal hemorrhoids were identified, which were not actively edematous or inflamed and no bleeding. Normal sphincter tone was felt and there were no palpable masses. Prostate gland was palpable and appeared normal. The endoscope was then intubated into the anus and the rectum gently insufflated. The endoscope was then advanced through the valve of Smalls the rectum with no polyps or any neoplasms identified. We then proceeded through the sigmoid colon where a mild sigmoid diverticulosis was identified. There were no mucosal inflammatory changes to indicate any active diverticulitis. There were no signs of potential bleeding sources or any active bleeding. The endoscope was then advanced through the remainder of the descending, transverse, and ascending colon of the cecum. These segments were normal. There were no polyps or any neoplasms identified, as well as no bleeding sources identified. The endoscope was then slowly withdrawn while taking a second look and suctioning residual air with no additional findings. The patient tolerated the procedure well. We will recommend a high fiber diet with at least 30 grams of fiber per day, as well as at least 64 fluid ounces of water daily to promote soft stools on a daily basis. From our perspective, he may proceed with cardiac catheterization, as well as intervention and anticoagulation. For his upper gastrointestinal peptic ulcer disease and ulcer, we will recommend continued proton pump inhibitor as well as the necessary lifestyle and diet accommodation including avoidance of caffeinated beverages, spicy, greasy and acidic foods. Job ID: [id number] Dictated Date: 11/18/2016 11:43:39 Ceramic Tile Mechanic Date: 11/21/2016 11:38:03 / kiana
== END | disposition home or self-care (01) ==
LOC: ENDO 09:49
PROVIDERS: ATTEND Surgery Pediatric Surgery
DX: K92.2 Gastrointestinal hemorrhage, unspecified (principal); D64.9 Anemia, unspecified; K57.30 Diverticulosis of large intestine without perforation or abscess without bleeding; K64.1 Second degree hemorrhoids

== ENCOUNTER 2016-11-24 10:44 | Day surgery (SDC) | payer MEDICARE ==
[~2016-11-24] VITALS: Ht 182.9 cm; Wt 86.2 kg
[2016-11-24] VITALS (8 sets, daily range): BP systolic 137–161; BP diastolic 55–86
[~2016-11-24 10:44] MED LIST changes: -ACETAMINOPHEN 325 MG TABLET/CAPLET (TYLENOL) PO PRN; -ATOR40TA70 PO; -CLOP75TA28 PO; -FLUMAZENIL (ROMAZICON) 0.1 MG/ML 5 ML VIAL INJ PRN; -HYDROcodone/APAP 5 MG/325 MG (LORTAB) TAB PO ONE; -LIDOCAINE JELLY 2% (XYLOCAINE) 5 ML TUBE ONE; -NALOXONE 0.4 MG/ML 1 ML (NARCAN) VIAL IVP PRN; -NS IV 500 ML 500 ML IV ONE; -ONDANSETRON 4 MG/2 ML (SDV) Z0FRAN IVP PRN; -PANT40TA3 PO; -fentaNYL INJECTION 100 MCG/2 ML AMP ONE; -morphine INJ 10 MG/ML 1ML (SYR OR VIAL) IVP PRN
[2016-11-24] MEDS ORDERED: LIDOCAINE 1% INJ 20 ML (XYLOCAINE) VIAL ONE (10:50)
[2016-11-24] MEDS ORDERED: NS IV 1000 ML 1,000 ML ONE (10:50)
[2016-11-24] MEDS ORDERED: HEParin (CATH LAB) 1,000 ML IV ONE (10:50)
[2016-11-24] MEDS ORDERED: NS IV 1000 ML 1,000 ML IV SCH ×2 (10:58→14:50)
[2016-11-24 11:26] LABS: MEAN PLATELET VOLUME 10.1 FL (7.4-10.4); RED BLOOD COUNT 4.12 10^6/uL (4.35-5.85); RED CELL DISTRIBUTION WIDTH 14.4 % (10.0-14.5); WHITE BLOOD COUNT 6.9 10^3/uL (4.3-11.0)
[2016-11-24 11:36] LABS: INR 1.1 (0.8-1.4); PROTHROMBIN TIME PATIENT 14.3 SEC (12.2-14.7)
[2016-11-24 11:40] LABS: ALANINE AMINOTRANSFERASE 21 U/L (0-55); ALBUMIN 4.2 G/DL (3.2-4.5); ANION GAP 9 MMOL/L (5-14); ASPARTATE AMINO TRANSFERASE 14 U/L (5-34); BILIRUBIN,TOTAL 0.7 MG/DL (0.1-1.0); BLOOD UREA NITROGEN 15 MG/DL (7-18); BUN/CREATININE RATIO 14; CARBON DIOXIDE 28 MMOL/L (21-32); CHLORIDE 103 MMOL/L (98-107); CREATININE SERUM 1.08 MG/DL (0.60-1.30); GFR ESTIMATED > 60; GLUCOSE 91 MG/DL (70-105); POTASSIUM 3.9 MMOL/L (3.6-5.0); SODIUM 140 MMOL/L (135-145); TOTAL PROTEIN 7.1 G/DL (6.4-8.2)
[2016-11-24] MEDS ORDERED: ASPI-983 PO (11:52)
[2016-11-24] MEDS ORDERED: PANT40TA3 PO (11:52)
[2016-11-24] MEDS ORDERED: SUCR1TAB PO (11:52)
[2016-11-24] MEDS ORDERED: CLOP75TA28 PO (11:52)
[2016-11-24] MEDS ORDERED: LISI-556 PO (11:52)
[2016-11-24] MEDS ORDERED: ATOR40TA70 PO (11:52)
[2016-11-24] MEDS ORDERED: METO-333 PO (11:52)
[2016-11-24] MEDS ORDERED: diphenhydrAMINE 50 MG/ML INJ (BENADRYL) ONE (12:19)
[2016-11-24] MEDS ORDERED: MIDAZOLAM 5 MG/5 ML (VERSED) VIAL ONE (12:19)
[2016-11-24] MEDS ORDERED: fentaNYL INJECTION 100 MCG/2 ML AMP ONE (12:19)
[2016-11-24] MEDS ORDERED: VERAPAMIL 5 MG/2 ML (CALAN) VIAL IV ONE (13:16)
[2016-11-24] MEDS ORDERED: HEParin 1000 UNIT/ML (10ML VIAL) FOR BOLUS ONE (13:17)
[2016-11-24] MEDS ORDERED: NITROGLYCERIN DRIP 25 MG/D5W 250 ML IV ONE (13:17)
--- NOTE | 2016-11-24 14:47 | Cardiac Procedure Note-CS/ASA ---
Pre-Procedure Note Pre-Op Procedure Note H&P Reviewed The H&P was reviewed, patient examined and no changes noted. Date H&P Reviewed: Nov 24, 2016 Time H&P Reviewed: 13:00 Conscious Sedation Pre-Proced Time Reviewed: 13:00 ASA Class: 3 Airway Mallampati Classification: (nulato appropriate class) I. II. III, IV Lungs Heart ASA score ASA 1: a normal healthy patient ASA 2: a patient with a mild systemic disease (mid diabetes, controlled hypertension, obesity ASA 3: a patient with a severe systemic disease that limits activity (angina , COPD, prior Myocardial infarction) ASA 4: a patient with an incapacitating disease that is a constant threat to life (CHF, renal failure) ASA 5: a moribund patient not expected to survive 24 hrs. (ruptured aneurysm) ASA 6: a declared brain patient whose organs are being harvested. For emergent operations, add the letter E after the classification Grade 1 Sedation Plan: Analgesia, Amnesia, Plan communicated to team members, Discussed options with patient/fam, Discussed risks with patient/fam Note The patient is an appropriate candidate to undergo the planned procedure, sedation, and anesthesia. The patient immediately re-assessed prior to indication. Liliana JACKSON MD Nov 24, 2016 2:47 pm
--- NOTE | 2016-11-24 14:50 | Cardiology Post Procedure Note ---
Post-Procedure Note Post-Op Procedure Note Procedure Start Date: Nov 24, 2016 Procedure Start Time: 13:15 Name of Procedure: Coronary Angiography, [facility] Findings/Procedure Note Severe left main stenosis, severe mid LAD, severe proximal D2, severe proximal LCX, severe ostial RCA stenosis. LV function 45% with distal anterior, apical hypokinesis. LVEDP 10mmhg Anesthesia Type: Conscious Sedation Estimated blood loss (mL): 10 cc Contrast Amount: 103cc Post-Operative Diagnosis Post-operative diagnosis: Severe left main and three vessel disease Liliana JACKSON MD Nov 24, 2016 2:50 pm
[2016-11-24] MEDS ORDERED: PATIENT MAY USE OWN MEDS, ALL PO SCH (15:00)
--- NOTE | 2016-11-24 15:17 | Cardiology Discharge Summary ---
Diagnosis/Chief Complaint Date of Admission 11/24/2016 Date of Discharge 11/24/2016 Admission Diagnosis non-STEMI Final/Discharge Diagnosis severe left main and triple-vessel disease Chief Complaint/HPI Chief Complaint/HPI recent GI bleeding no significant source of bleeding found on upper endoscopy and colonoscopy therefore surgical clearance given for coronary angiography and intervention for non-STEMI. Patient had shoulder and epigastric discomfort with significantly positive troponin during the index admission. Discharge Summary Procedures coronary angiography via right radial approach showed severe left main, LAD, left circumflex and ostial RCA stenosis. LVEF is 45 percent with distal anterior, apical and apical inferior hypokinesis. LVEDP is 10 mmHg. Discharge Physical Examination stable Hospital Course stable Pending Labs Laboratory Tests 11/24/16 11:12: White Blood Count 6.9, Red Blood Count 4.12, Hemoglobin 12.1, Hematocrit 39, Mean Corpuscular Volume 94, Mean Corpuscular Hemoglobin 29, Mean Corpuscular Hemoglobin Concent 31, Red Cell Distribution Width 14.4, Platelet Count 386, Mean Platelet Volume 10.1, Prothrombin Time 14.3, INR Comment 1.1, Activated Partial Thromboplast Time 40, Sodium Level 140, Potassium Level 3.9, Chloride Level 103, Carbon Dioxide Level 28, Anion Gap 9, Blood Urea Nitrogen 15, Creatinine 1.08, Estimat Glomerular Filtration Rate > 60, BUN/Creatinine Ratio 14, Glucose Level 91, Calcium Level 9.0, Total Bilirubin 0.7, Aspartate Amino Transf (AST/SGOT) 14, Alanine Aminotransferase (ALT/SGPT) 21, Alkaline Phosphatase 90, Total Protein 7.1, Albumin 4.2 Discussion & Recommendations Discussion CABG as the preferred mode of revascularization for this patient. I have therefore discussed at length with the patient and family. I've also discussed with Dr. Salter at [facility] who is very kindly accepted the patient for transfer for CABG evaluation. Follow up appt.: transferred to [facility] for CABG evaluation. Follow-up after surgery in my office. Dicharge Diet: Cardiac Diet Activity as Tolerated: Yes Home Medications Reviewed patient Home Medication Reconciliation Form Discharge Home Medications: Reviewed and agree with Discharge Medication list on patient's Discharge Instruction sheet Condition at discharge stable Instructions to patient/family transfer to [facility] for CABG evaluation. Liliana JACKSON MD Nov 24, 2016 3:17 pm
--- NOTE | 2016-11-24 16:01 | CARDIAC CATHETERIZATION ---
DATE OF SERVICE: 11/24/2016 CORONARY ANGIOGRAPHY REPORT REFERRING PHYSICIAN: Dr. Matthews PERFORMING PHYSICIAN: Dr. Cain Jackson. INDICATION: Non-ST elevation myocardial infarction. PREOPERATIVE DIAGNOSIS: Non-ST elevation myocardial infarction. POSTOPERATIVE DIAGNOSIS: 1. Non-ST elevation myocardial infarction. 2. Left main disease with severe 3 vessel disease. HISTORY: The patient is a 71-year-old gentleman who I first saw end of 2015 when he came in for a cryptogenic stroke. Considering that he could have atrial fibrillation, he was started on Eliquis and an implantable loop recorder was placed. However, no episodes of atrial fibrillation were noted after device interrogations for around 6 months; therefore, Eliquis was discontinued. Recently, in the last 1 week to 10 days the patient was admitted for significant GI bleeding and anemia. The patient was not on Eliquis which was discontinued previously. He also had complaints of upper epigastric discomfort and shoulder discomfort. His Troponin was significant positive. Due to active GI bleeding, he was not given any antiplatelet or anticoagulation therapy. An endoscopy was performed during the hospital stay which showed a duodenal ulcer which was not bleeding. He was given transfusion and discharged. Post discharge, he had a colonoscopy done which also did not show any active source of bleeding; therefore, he got surgical clearance to proceed with angiogram. Just after discharge, he had Lexiscan nuclear stress test which showed significant area of ischemia. Therefore, clearance was taken for angiogram and intervention. He was brought to the catheterization lab for coronary angiography. PROCEDURE PERFORMED: 1. Coronary angiogram. 2. Left heart catheterization. 3. Left ventriculogram. 4. Right brachiocephalic angiogram. COMPLICATIONS: None. SPECIMENS COLLECTED: None. ANTICOAGULATION: IV heparin. ESTIMATED BLOOD LOSS: 10 mL CONTRAST DOSE: 103 mL Omnipaque. FLUOROSCOPY TIME: 6.9 minutes. FLUOROSCOPY DOSE: 535 milligrays PROCEDURE DETAILS: This is a 71-year-old gentleman who was brought to the catheterization lab after informed consent was taken. All the risks and complications were explained in detail. He was draped and prepped in the usual sterile fashion. Access was gained in the right radial artery with a 6-American sheath. We used a regular 0.035 guidewire but had difficulty crossing in the right brachiocephalic artery where an angiogram was performed which showed significant tortuosity. With a [place] Direct Auto wire we were able to get to the aortic root. Left heart catheterization and coronary angiography was performed with a Cy catheter. FINDINGS: 1. Left main: Calcified left main with mid and distal severe 80% stenosis. 2. LAD: Suboptimal opacification of the LAD; however, it is diffusely diseased in the proximal and mid segment with at least an 80% disease in the mid aspect. LAD is diffusely diseased. The distal 1/3 is a rather healthy looking segment. LAD is a transapical vessel. There is a 1st diagonal artery which has ostial 70-80% disease. There is a 2nd diagonal vessel which has severe 95% proximal stenosis. 3. Left circumflex artery. Again there is mild suboptimal contrast opacification since the Cy catheter was not very well engaged in the left main due to significant tortuosity. However, there is significant suspicion of proximal left circumflex artery stenosis of around 80%. There is a 1st obtuse marginal artery which does not have any significant severe stenosis. 4. RCA: RCA has severe 95% ostial stenosis. It is a dominant vessel. 5. Left heart catheterization: Aortic pressure 123/72 mmHg. LV pressure 104/6 mmHg. LVEDP 10 mmHg. LV gram shows an EF of 45% with distal anteroapical and apical inferior hypokinesis. There is no gradient across the aortic valve. IMPRESSION AND CONCLUSION: 1. Severe left main and triple vessel disease, revascularization with bypass surgery is recommended. 2. I spoke with Dr. Salter at [facility] in [place] who has kindly accepted the patient for transfer. 3. I also discussed at length with the patient and the family who accept transfer to [facility] in [place]. Job ID: [id number] DocumentID: [id number] Dictated Date: 11/24/2016 15:09:56 Operating Engineer Date: 11/24/2016 16:00:44 Dictated By: LA JACKSON MD MTDD
== END 2016-11-24 16:23 | disposition short-term general hospital (02) ==
LOC: CATH 10:44 → ICU 14:45 → CATH 16:23
PROVIDERS: ATTEND Internal Medicine Interventional Cardiology
DX: I21.4 Non-ST elevation (NSTEMI) myocardial infarction (principal); I25.10 Atherosclerotic heart disease of native coronary artery without angina pectoris; I25.84 Coronary atherosclerosis due to calcified coronary lesion; K26.9 Duodenal ulcer, unspecified as acute or chronic, without hemorrhage or perforation; D64.9 Anemia, unspecified; Z79.899 Other long term (current) drug therapy
CPT/HCPCS: 36415; 80053; 85027; 85610; 85730; 87081; 93458

== ENCOUNTER → 2016-12-26 | Outpatient (CLI) | payer MEDICARE ==
[~2016-12-26] MED LIST changes: +ATOR40TA70 PO; +CLOP75TA28 PO; +PANT40TA3 PO
--- NOTE | 2016-12-26 14:03 | Diagnostic Imaging Report ---
PA and lateral views of the chest. INDICATION: Shortness of breath. FINDINGS: The heart is mildly enlarged. There is an elevated right hemidiaphragm similar to 11/06/2016 with superimposed adjacent atelectasis or infiltrate. There is a small right pleural effusion. The left lung appears stable. Sternotomy wires and post CABG changes are seen. There is a silver miner projecting over the medial left hemithorax inferiorly. The mediastinum and meredith appear unchanged from 11/06/2016. IMPRESSION: Persistent elevation of the right hemidiaphragm with superimposed small effusion and right basilar infiltrate or atelectasis. Dictated by: Dictated on workstation # [id number]
== END ==
LOC: RAD 11:47
PROVIDERS: ATTEND Thoracic Surgery (Cardiothoracic Vascular Surgery)
DX: R06.02 Shortness of breath (principal)
CPT/HCPCS: 71020

== ENCOUNTER 2017-04-05 08:13 | Outpatient (RCR) | payer MEDICARE | END 2017-04-05 09:00 | disposition home or self-care (01) | LOC: CR 08:13 | PROVIDERS: ATTEND Internal Medicine Interventional Cardiology | DX: Z48.812 Encounter for surgical aftercare following surgery on the circulatory system (principal); Z95.1 Presence of aortocoronary bypass graft | CPT/HCPCS: 93798 ==

== ENCOUNTER → 2019-06-19 | Outpatient (CLI) | payer MEDICARE ==
[~2019-06-19] MED LIST changes: +HYDR-34 PO; -HYDR-3816 PO; -OMEP20CA12 PO; +OMEP20CA13 PO
== END ==
LOC: CARD 08:58
PROVIDERS: ATTEND Internal Medicine Interventional Cardiology
DX: I25.10 Atherosclerotic heart disease of native coronary artery without angina pectoris (principal); I49.3 Ventricular premature depolarization; I48.0 Paroxysmal atrial fibrillation; I10 Essential (primary) hypertension
CPT/HCPCS: 93306

== ENCOUNTER 2019-08-29 07:23 | Day surgery (SDC) | payer MEDICARE ==
[~2019-08-29] VITALS: Ht 185.5 cm; Wt 86.4 kg
[2019-08-29] VITALS (10 sets, daily range): BP systolic 105–152; BP diastolic 67–84
[~2019-08-29 07:23] MED LIST changes: +OMEP-280 PO; -OMEP20CA13 PO
[2019-08-29] MEDS ORDERED: NS IV 1000 ML 1,000 ML ONE (07:29)
[2019-08-29] MEDS ORDERED: HEParin (CATH LAB) 2,000 ML IV ONE (07:29)
[2019-08-29] MEDS ORDERED: LIDOCAINE 1% INJ 20 ML 20 ML VIAL ONE (07:29)
[2019-08-29] MEDS: NS IV 1000 ML 1,000 ML IV SCH ×2 (07:41→08:16)
[2019-08-29 08:00] LABS: HEMOGLOBIN 14.7 G/DL (13.3-17.7); MEAN PLATELET VOLUME 9.2 FL (7.4-10.4); RED CELL DISTRIBUTION WIDTH 13.7 % (10.0-14.5); WHITE BLOOD COUNT 8.2 10^3/uL (4.3-11.0)
[2019-08-29] MEDS ORDERED: FINA5TAB6 PO (08:14)
[2019-08-29] MEDS ORDERED: LORA10TA7 PO (08:14)
[2019-08-29 08:15] LABS: INR 1.1 (0.8-1.4); PROTHROMBIN TIME PATIENT 14.5 SEC (12.2-14.7)
[2019-08-29 08:22] LABS: ALANINE AMINOTRANSFERASE 22 U/L (0-55); ALBUMIN 4.3 GM/DL (3.2-4.5); ALKALINE PHOSPHATASE 68 U/L (40-136); BILIRUBIN,TOTAL 0.7 MG/DL (0.1-1.0); BUN/CREATININE RATIO 17; CALCIUM 9.1 MG/DL (8.5-10.1); CARBON DIOXIDE 28 MMOL/L (21-32); CHLORIDE 105 MMOL/L (98-107); CREATININE SERUM 1.15 MG/DL (0.60-1.30); GFR ESTIMATED > 60; GLUCOSE 96 MG/DL (70-105); SODIUM 141 MMOL/L (135-145); TOTAL PROTEIN 7.3 GM/DL (6.4-8.2)
[2019-08-29] MEDS ORDERED: MIDAZOLAM 5 MG/5 ML (VERSED) VIAL ONE (08:22)
[2019-08-29] MEDS ORDERED: fentaNYL INJECTION 100 MCG/2 ML AMP ONE (08:23)
[2019-08-29] MEDS ORDERED: HEParin 1000 UNIT/ML (10ML VIAL) FOR BOLUS ONE (09:51)
--- NOTE | 2019-08-29 10:23 | Cardiac Procedure Note-CS/ASA ---
Pre-Procedure Note Pre-Op Procedure Note H&P Reviewed The H&P was reviewed, patient examined and no changes noted. Date H&P Reviewed: Aug 29, 2019 Time H&P Reviewed: 09:00 Conscious Sedation Pre-Proced Time 09:00 ASA Score 3 For ASA 3 and 4: Consider anesthesia and medical clearance. Also, for patients with a history of failed moderate sedation consider anesthesia. Airway Lungs Heart ASA score ASA 1: a normal healthy patient ASA 2: a patient with a mild systemic disease (mid diabetes, controlled hypertension, obesity ASA 3: a patient with a severe systemic disease that limits activity (angina, COPD, prior Myocardial infarction) ASA 4: a patient with an incapacitating disease that is a constant threat to life (CHF, renal failure) ASA 5: a moribund patient not expected to survive 24 hrs. (ruptured aneurysm) ASA 6: a declared brain- patient whose organs are being harvested. For emergent operations, add the letter E after the classification Mallampati Classification Grade 1 Sedation Plan Analgesia, Amnesia, Plan communicated to team members, Discussed options with patient/fam, Discussed risks with patient/fam The patient is an appropriate candidate to undergo the planned procedure, sedation, and anesthesia. The patient immediately re-assessed prior to indication. Liliana JACKSON MD Aug 29, 2019 10:23
--- NOTE | 2019-08-29 10:23 | Coronary Angiography Report ---
Coronary Angiography Report DATE OF PROCEDURE: 08/29/19 INDICATION: CAD, CABG, new decrease in LV systolic function. PREOPERATIVE DIAGNOSIS: CAD, CABG, new decrease in LV systolic function. POSTOPERATIVE DIAGNOSIS: Moderate to severe CAD. HISTORY: This is a 74-year-old gentleman with previous history of severe CAD requiring CABG. Patient's previous EF was 55 percent. Most recently an echocardiogram showed an EF of 40 percent. Therefore, the patient was scheduled for coronary angiography. PROCEDURES PERFORMED: 1.Coronary angiography. 2.Left heart catheterization. 3. IQBAL angiography. 4. Saphenous vein angiography. COMPLICATIONS: None. SPECIMENS: None. ESTIMATED BLOOD LOSS: 10 mL ANESTHESIA: Conscious sedation ANTICOAGULATION: IV heparin CONTRAST: 135 ML. FLUOROSCOPY: 8.21 minutes. FLOUROSCOPY DOSE: 936 mgy. PROCEDURE DETAILS: The patient is a 74 male and was brought to the veterinary laboratory diagnostician after informed consent was taken. All the risks and complications were explained in detail; this included the risk of bleeding, vascular damage, stroke, VT and even . The patient was draped and prepped in the usual sterile fashion. Access was gained in the right femoral artery with a 5 Chinese sheath. Coronary angiography, left heart catheterization, saphenous vein angiography, IQBAL angiography was done with a JR4 catheter, IM catheter, JL4 catheter. FINDINGS: 1.Left main: Occluded distal left main. 2.LAD: Mid LAD supplied by IQBAL graft. 3.Left circumflex artery: The second OM supplied by a saphenous vein graft. 4.RCA: Severe calcified ostial RCA stenosis. Diffuse disease distally. Competitive flow in the PL branch. 5.Left heart catheterization: LV pressure 120/10 mmHg. LVEDP 14 mmHg. Aortic pressure 120/68 mmHg. Moderate LV systolic dysfunction. Inferior hypokinesis. No gradient across the aortic valve. 6. Occluded saphenous vein graft to the first diagonal artery. 7. Patent jump graft to a second OM branch and PL branch. 8. IQBAL to the LAD: Patent proximal anastomosis. The body of the graft is normal. However moderate to severe stenosis of the distal anastomotic site. Stenosis severity 70-80 percent. The LAD after the distal anastomotic site has diffuse disease. CONCLUSIONS: -IQBAL to the LAD has moderate to severe stenosis of the distal anastomotic site. I will proceed with nuclear stress testing and if there is any anterior, apical ischemia. We'll proceed with balloon angioplasty of the distal anastomotic site. -Occluded graft to the first diagonal artery. Patent graft to second OM and PL branch. -Severe campo CAD. -Continue aggressive secondary prevention measures. Cain Kc MD, FACP, FACC, [facility] Interventional Cardiology Liliana KC MD Aug 29, 2019 10:23
[2019-08-29] MEDS ORDERED: NS IV 1000 ML 1,000 ML IV SCH (10:36)
--- NOTE | 2019-08-29 10:44 | Discharge Inst-Post CATH ---
Discharge Inst-CATH/EP Problems Reviewed?: Yes Final Diagnosis CAD, new onset cardiomyopathy Post Cardiac Cath/EP D/C Inst Follow Up/Plan CAD, New Onset Cardiomyopathy <b>CARDIAC CATH/EP PROCEDURE DISCHARGE INSTRUCTIONS</b> ACTIVITY * Go Home directly and rest. * Limit activity of the leg (or wrist if it was used) for 7 days including aerobics, swimming, jogging, bicycling, etc. * Restrict stair-climbing for 7 days if possible, if not, climb up with your non-cath leg, then bring together on the same step. * Avoid lifting, pushing, pulling or excessive movement of the affected extremity for 7 days. * Customary sexual activity may be resumed after 2 days-use caution not to use a position that strains or causes pain to the affected extremity. * No driving for 24 hours. * NO SMOKING. * Avoid straining for bowel movements for 7 days. * Gentle walking on level ground is allowed. * Returning to work will depend on the type of procedure and the results. Your doctor will discuss this with you. CALL YOUR DOCTOR FOR ANY OF THE FOLLOWING: *If bleeding from the puncture site occurs- Apply gentle pressure to site with clean cloth and call your doctor or EMS. * If a knot or lump forms under the skin, increases in size, or causes pain. * If bruising appears to be worsening or moving further down your leg instead of disappearing. * Temperature above 101 F. CARE OF YOUR GROIN INCISION; * Bruising or purple discoloration of the skin near the puncture site is common. * You may shower only, no bathtub bathing for 5 days. Be careful to avoid slipp ing as your leg may feel stiff. * If a closure device was used on your femoral artery, please see the attached guide regarding care of the device and your leg. * Leave dressing on FOR 24 hours. CARE OF YOUR WRIST INCISION; * Bruising or purple discoloration of the skin near the puncture site is common. * You may shower. * DO NOT submerge wrist. * Leave dressing on FOR 24 hours. Liliana JACKSON MD Aug 29, 2019 10:44
[2019-08-29] MEDS ORDERED: PATIENT MAY USE OWN MEDS, ALL PO SCH (10:45)
== END 2019-08-29 14:06 ==
LOC: CATH 07:23 → SDC 10:39 → CATH 14:06
PROVIDERS: ATTEND Internal Medicine Interventional Cardiology
DX: I25.10 Atherosclerotic heart disease of native coronary artery without angina pectoris (principal); I63.9 Cerebral infarction, unspecified; I51.9 Heart disease, unspecified; I25.2 Old myocardial infarction; I11.9 Hypertensive heart disease without heart failure; I49.3 Ventricular premature depolarization; I48.0 Paroxysmal atrial fibrillation; I77.89 Other specified disorders of arteries and arterioles; I25.5 Ischemic cardiomyopathy; Z79.899 Other long term (current) drug therapy; Z82.3 Family history of stroke; Z80.9 Family history of malignant neoplasm, unspecified; Z82.49 Family history of ischemic heart disease and other diseases of the circulatory system
CPT/HCPCS: 36221; 36415; 80053; 85027; 85610; 85730; 87081; 93005; 93459

== ENCOUNTER → 2019-08-30 | Outpatient (CLI) | payer MEDICARE ==
[~2019-08-30] VITALS: Ht 183 cm; Wt 86.0 kg
[~2019-08-30] MED LIST changes: +CATHETER FLUSH 10 ML SYR IV PRN; +FINA5TAB6 PO; +LORA10TA7 PO; +REGADENOSON 0.4 MG/5 ML SYR (LEXISCAN) IV ONE
[2019-08-30 08:02] VITALS: BP 147/84
--- NOTE | 2019-09-05 12:58 | Cardiology Stress Test Report ---
Stress Test Report Type of NM Stress Test: Test Type: LEXISCAN 0.4MG/5ML Date of Procedure/Referring: Date of Procedure: Aug 30, 2019 PCP Liliana Jackson MD Admitting Physician Gregg Matthews MD Indications: CAD, new onset cardiomyopathy Baseline Heart Rate: 61 Baseline Blood Pressure: Blood Pressure Systolic: 147 Blood Pressure Diastolic: 84 Baseline EKG: Baseline EKG: sinus rhythm Summary & Conclusion: Summary: The patient was brought to the stress lab after informed consent was taken. Stress test was performed according to the Lexiscan protocol. 0.4 mg of IV Lexiscan was given. Low-grade exercise was performed. Baseline EKG showed sinus rhythm at 61 BPM. Blood pressure 147/81 mmHg. Maximum heart rate of 73 bpm and blood pressure 124/73 mmHg. Patient did not have any chest pain, arrhythmias or ST segment changes during the stress test. 10.81 mCi of Myoview were given for rest imaging and 30.1 mCi of Myoview given for stress imaging. Transient ischemic dilatation score 1.02, EF 29 percent. Global hypokinesis. Moderate anterior/apical reversible ischemia. Fixed inferior lateral defect. Mild nina-infarct reversible defect. SSS 24, SRS 12, SDS 10. Conclusion: Pharmacological stress test was negative for ischemia. Moderate to severe LV systolic dysfunction with global hypokinesis. Moderate anterior apical ischemia. 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 Liliana JACKSON MD Sep 05, 2019 12:58
== END ==
LOC: CARD 07:04
PROVIDERS: ATTEND Internal Medicine Interventional Cardiology
DX: I25.10 Atherosclerotic heart disease of native coronary artery without angina pectoris (principal); I42.9 Cardiomyopathy, unspecified
CPT/HCPCS: 78452; 93017

== ENCOUNTER 2020-01-30 15:47 | Inpatient (IN) | payer MEDICARE ==
[~2020-01-30] VITALS: Ht 182 cm; Wt 94.0 kg
[~2020-01-30 15:47] MED LIST changes: +ACET-2267 PO; -CATHETER FLUSH 10 ML SYR IV PRN; +CITA20TA9 PO; +MULT-567 PO; -MULT1TAB69 PO; -OMEP-280 PO; +OMEP20CA18 PO; +PSEU120T17 PO; -REGADENOSON 0.4 MG/5 ML SYR (LEXISCAN) IV ONE; +TICA90TA PO
[2020-01-30] MEDS ORDERED: ACETAMINOPHEN 500 MG TAB (TYLENOL) PO ONE (16:15)
--- NOTE | 2020-01-30 16:15 | ED Fever ---
History of Present Illness General Stated Complaint: FEVER,SOA Source: patient ( LIMITED HISTORIAN) History of Present Illness Date Seen by Provider: Jan 30, 2020 Time Seen by Provider: 15:50 Initial Comments PT ARRIVES VIA POV FROM HOME STATES HE HAS BEEN ILL SINCE Monday01/25/20 WITH FEVER AND SHORTNESS OF BREATH PT WAS TESTED FOR COVID-19 AT [facility] ON MONDAY, AND GOT RESULTS BACK TODAY--NEGATIVE. PT CONTINUES TO HAVE FEVER OF 101-103 AND CONTINUES TO BE SHORT OF BREATH--PT DOES NOT KNOW WHEN HE LAST HAD ANY TYLENOL ( LATER STATES SHE GAVE HIM 1000 MG TYLENOL AN HOUR PRIOR TO ARRIVAL ) C/O GENERALIZED WEAKNESS LEGS HAVE BEEN ACHING NO CHEST PAIN NO COUGH NO SWELLING IN LEGS/FEET NO GI SYMPTOMS PT'S IS NOT ILL AND WAS NOT TESTED. PT HAS HISTORY OF HEART DISEASE AND IS ON 81 MG ASPIRIN HAD BEEN ON PLAVIX, BUT STATES IT WAS STOPPED LAST WEEK, STATES BECAUSE OF BRUISING AND "I DIDN'T NEED IT ANYMORE" PCP: DR. CASTAÑEDA AT [facility] ENGRAVER TENDER: DR. JACKSON Allergies and Home Medications Allergies Coded Allergies: No Known Drug Allergies (Unverified , 11/17/16) Home Medications Acetaminophen 500 Mg Tablet, 1,000 MG PO PRN PRN for PAIN-MILD (1-4), (Reported) Aspirin 81 Mg Tablet.dr, 81 MG PO DAILY, (Reported) Atorvastatin Calcium 40 Mg Tablet, 40 MG PO HS, (Reported) Citalopram Hydrobromide 20 Mg Tablet, 20 MG PO DAILY, (Reported) Finasteride 5 Mg Tablet, 5 MG PO DAILY, (Reported) Lisinopril 5 Mg Tablet, 5 MG PO DAILY, (Reported) Loratadine 10 Mg Tablet, 10 MG PO DAILY, (Reported) Metoprolol Tartrate 25 Mg Tablet, 12.5 MG PO BID, (Reported) TAKES 1/2 OF A (25 MG) TABLET Multivitamin 1 Each Tablet, 1 TAB PO DAILY, (Reported) Patient Home Medication List Home Medication List Reviewed: Yes Review of Systems Review of Systems Constitutional: see HPI, fever, malaise, weakness EENTM: no symptoms reported Respiratory: see HPI; No cough; short of breath Cardiovascular: no symptoms reported; No chest pain, No edema, No palpitations, No syncope Gastrointestinal: no symptoms reported; No abdominal pain, No nausea, No vomiting Genitourinary: no symptoms reported Musculoskeletal: other (LEGS ACHE) Skin: no symptoms reported Psychiatric/Neurological: No Symptoms Reported; Denies Headache Hematologic/Lymphatic: No Symptoms Reported Immunological/Allergic: no symptoms reported Past Vhsvcla-Crzgkt-Oqlnud Hx Past Med/Social Hx: Reviewed and Corrections made Patient Social History 2nd Hand Smoke Exposure: No Recent Hopitalizations: Yes (GI BLEED 11/2016) Immunizations Up To Date Tetanus Booster (TDap): Less than 5yrs PED Vaccines UTD: No Date of Pneumonia Vaccine: Jul 01, 2013 Date of Influenza Vaccine: Jul 07, 2019 Seasonal Allergies Seasonal Allergies: Yes Past Medical History Surgeries: Yes (LINQ DEVICE) Abdominal, Cardiac Respiratory: No Currently Using CPAP: No Currently Using BIPAP: No Cardiac: Yes (HAS A LINQ TO MONITOR FOR SUSPECTED AFIB) Atrial Fibrillation, High Cholesterol, Hypertension Neurological: Yes Stroke Reproductive Disorders: No Sexually Transmitted Disease: No HIV/AIDS: No Genitourinary: Yes Benign Prostatic Hyperpl Gastrointestinal: Yes (RECENT HOSPITALIZATION FOR BLEEDING ULCER) Gastrointestinal Bleed, Ulcer Musculoskeletal: Yes Arthritis Endocrine: No HEENT: Yes Cataract Hearing Impairment: Hard of Hearing Cancer: Yes Skin Did You Recieve Any Treatments: Yes What Type of Treatment Did You: Surgical Intervention Psychosocial: Yes Depression Integumentary: No Blood Disorders: No Adverse Reaction/Blood Tranf: No (HAS HAD BLOOD WITH NO REACTION) Family Medical History Alcoholism G8 BROTHER, Onset:Unknown Cardiovascular disease 19 FATHER, , Age:89, Onset:Unknown G8 BROTHER, Onset:Unknown Completed stroke 19 MOTHER, , Age:86, Onset:Unknown FH: bladder cancer 19 MOTHER, , Age:86, Onset:Unknown FH: lupus G8 SISTER, , Age:75, Onset:Unknown FH: smoking G8 BROTHER, Onset:Unknown Parkinson's disease 19 MOTHER, , Age:86, Onset:Unknown CAD Over 55 Years Old Physical Exam Vital Signs - First Documented 01/30/20 15:50 Temp 39.4 Pulse 92 Resp 30 B/P (MAP) 164/86 (112) Pulse Ox 92 O2 Delivery Room Air O2 Flow Rate 2.00 Capillary Refill : Height: 6'0.00" Weight: 190lbs. 0.0oz. 86.993679my; 25.12 BMI Method:Estimated General Appearance: WD/WN, no apparent distress, other (GENERALIZED WEAKNESS, NEEDS ASSIST OUT OF VEHICLE AND INTO WHEELCHAIR. 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-XII nml as tested, no motor/sensory deficits, alert, normal mood/affect, oriented x 3 Skin: normal color, warm/dry (VERY WARM) Focused Exam Sepsis Stage: Sepsis Possible Source: Pulmonary Lactate Level 01/30/20 15:55: Lactic Acid Level 1.78 Time of Focused Exam: 16:49 Respiratory: Normal Breath Sounds, No Accessory Muscle Use, No Respiratory Distress Cardiovascular: Regular Rate, Rhythm, No Edema, No JVD, No Murmur, Normal Peripheral Pulses Capillary Refill: Less Than 3 Seconds Skin: normal color, warm/dry Lactic Acid Level Laboratory Tests Test 01/30/20 15:55 Lactic Acid Level 1.78 MMOL/L (0.50-2.00) Within 3hrs of presentation: Admin fluids, Admin ABX, Blood cultures prior to ABX's, Focus exam, Lactate level Progress/Results/Core Measures Suspected Sepsis SIRS Temperature: Pulse: Respiratory Rate: Laboratory Tests 01/30/20 15:55: White Blood Count 20.7H Blood Pressure / Mean: 01/30/20 15:55: Lactic Acid Level 1.78 Laboratory Tests 01/30/20 15:55: Creatinine 1.09, INR Comment 1.3, Platelet Count 294, Total Bilirubin 0.7 Results/Orders Lab Results Laboratory Tests Test 01/30/20 15:55 01/30/20 16:05 01/30/20 16:40 Range/Units White Blood Count 20.7 H 4.3-11.0 10^3/uL Red Blood Count 3.99 L 4.35-5.85 10^6/uL Hemoglobin 12.7 L 13.3-17.7 G/DL Hematocrit 38 L 40-54 % Mean Corpuscular Volume 96 80-99 FL Mean Corpuscular Hemoglobin 32 25-34 PG Mean Corpuscular Hemoglobin Concent 33 32-36 G/DL Red Cell Distribution Width 14.5 10.0-14.5 % Platelet Count 294 130-400 10^3/uL Mean Platelet Volume 10.3 7.4-10.4 FL Neutrophils (%) (Auto) 88 H 42-75 % Lymphocytes (%) (Auto) 7 L 12-44 % Monocytes (%) (Auto) 4 0-12 % Eosinophils (%) (Auto) 1 0-10 % Basophils (%) (Auto) 0 0-10 % Neutrophils # (Auto) 18.2 H 1.8-7.8 X 10^3 Lymphocytes # (Auto) 1.4 1.0-4.0 X 10^3 Monocytes # (Auto) 0.9 0.0-1.0 X 10^3 Eosinophils # (Auto) 0.2 0.0-0.3 10^3/uL Basophils # (Auto) 0.0 0.0-0.1 10^3/uL Neutrophils % (Manual) 73 % Lymphocytes % (Manual) 6 % Monocytes % (Manual) 4 % Eosinophils % (Manual) 1 % Basophils % (Manual) 0 % Band Neutrophils 16 % Blood Morphology Comment NORMAL Erythrocyte Sedimentation Rate 75 H 0-30 MM/HR Prothrombin Time 16.2 H 12.2-14.7 SEC INR Comment 1.3 0.8-1.4 Activated Partial Thromboplast Time 49 H 24-35 SEC D-Dimer 2.11 H 0.00-0.49 UG/ML Sodium Level 137 135-145 MMOL/L Potassium Level 3.9 3.6-5.0 MMOL/L Chloride Level 104 98-107 MMOL/L Carbon Dioxide Level 24 21-32 MMOL/L Anion Gap 9 5-14 MMOL/L Blood Urea Nitrogen 19 H 7-18 MG/DL Creatinine 1.09 0.60-1.30 MG/DL Estimat Glomerular Filtration Rate > 60 BUN/Creatinine Ratio 17 Glucose Level 123 H 70-105 MG/DL Lactic Acid Level 1.78 0.50-2.00 MMOL/L Calcium Level 8.5 8.5-10.1 MG/DL Corrected Calcium 9.1 8.5-10.1 MG/DL Magnesium Level 2.2 1.6-2.4 MG/DL Total Bilirubin 0.7 0.1-1.0 MG/DL Aspartate Amino Transf (AST/SGOT) 109 H 5-34 U/L Alanine Aminotransferase (ALT/SGPT) 216 H 0-55 U/L Alkaline Phosphatase 338 H 40-136 U/L Lactate Dehydrogenase 228 H 125-220 U/L Total Creatine Kinase 26 L 30-200 U/L Creatine Kinase MB 1.3 <6.6 NG/ML Myoglobin 49.0 10.0-92.0 NG/ML Troponin I < 0.028 <0.028 NG/ML C-Reactive Protein High Sensitivity 34.76 H 0.00-0.50 MG/DL B-Type Natriuretic Peptide 280.0 H <100.0 PG/ML Total Protein 6.9 6.4-8.2 GM/DL Albumin 3.2 3.2-4.5 GM/DL Procalcitonin 0.59 H <0.10 NG/ML Coronavirus (COVID-19)(PCR) Negative Negative Urine Color ORANGE Urine Clarity CLEAR Urine pH 5.5 5-9 Urine Specific Counce 1.020 1.016-1.022 Urine Protein 2+ H NEGATIVE Urine Glucose (UA) NEGATIVE NEGATIVE Urine Ketones TRACE H NEGATIVE Urine Nitrite NEGATIVE NEGATIVE Urine Bilirubin NEGATIVE NEGATIVE Urine Urobilinogen 1.0 < = 1.0 MG/DL Urine Leukocyte Esterase TRACE H NEGATIVE Urine RBC (Auto) 2+ H NEGATIVE Urine RBC 2-5 H /HPF Urine WBC 0-2 /HPF Urine Squamous Epithelial Cells NONE /HPF Urine Crystals NONE /LPF Urine Amorphous Sediment MOD SÁNCHEZ URATES H /LPF Urine Bacteria TRACE /HPF Urine Casts PRESENT /LPF Urine Coarse Granular Casts 5-10 H /LPF Urine Mucus NEGATIVE /LPF Urine Culture Indicated NO My Orders Orders - KAVEH JOHNSON DO Ed Iv/Invasive Line Start (01/30/20 15:50) Ekg Tracing (01/30/20 15:50) Monitor-Rhythm Ecg Trace Only (01/30/20 15:50) BNP (01/30/20 15:50) Cbc With Automated Diff (01/30/20 15:50) Comprehensive Metabolic Panel (01/30/20 15:50) Creatine Kinase (01/30/20 15:50) Creatine Kinase Mb (01/30/20 15:50) Hs C Reactive Protein (01/30/20 15:50) Fibrin Degradation Products (01/30/20 15:50) Lactic Acid Analyzer (01/30/20 15:50) Magnesium (01/30/20 15:50) Procalcitonin (Pct) (01/30/20 15:50) Protime With Inr (01/30/20 15:50) Partial Thromboplastin Time (01/30/20 15:50) Ua Culture If Indicated (01/30/20 15:50) Blood Culture (01/30/20 15:50) Erythrocyte Sedimentation Rate (01/30/20 15:50) Myoglobin Serum (01/30/20 15:50) Troponin I (01/30/20 15:50) LDH (01/30/20 15:50) Ekg Tracing (01/30/20 15:50) Chest 1 View, Ap/Pa Only (01/30/20 15:50) Coronavirus Sars-Cov-2 So 2018 (01/30/20 15:50) Acetaminophen Tablet (Tylenol Tablet) (01/30/20 16:15) Manual Differential (01/30/20 15:55) Medications Given in ED Vital Signs/I&O 01/30/20 15:50 Temp 39.4 Pulse 92 Resp 30 B/P (MAP) 164/86 (112) Pulse Ox 92 O2 Delivery Room Air O2 Flow Rate 2.00 Capillary Refill : Progress Note : Progress Note PT SEEN IN COVID UNIT--PPE WORN AT ALL TIMES GIVEN TYLENOL ON ARRIVAL FOR TEMP ( WAS UNKNOWN AT THAT TIME, THAT PT JUST HAD A DOSE OF TYLENOL AND HOUR PRIOR) O2 SAT 84% ON ROOM AIR--UP TO 93% ON 4L/NC--PT STATES HE FEELS A LITTLE LESS SHORT OF BREATH NO DETERIORATION IN PT'S CONDITION DURING ER STAY ECG Initial ECG Impression Date: Jan 30, 2020 Initial ECG Impression Time: 15:58 Initial ECG Rate: 91 Initial ECG Rhythm: Normal Sinus Diagnostic Imaging Comments CXR--LEFT MID LUNG PNEUMONIA, PER RADIOLOGIST REPORT AT 1656 Reviewed: Reviewed by Me Departure Communication (Admissions) Family Conversation 1707--ATTEMPTED TO CONTACT PT'S . MESSAGE LEFT ON CELL PHONE. RN SPOKE WITH PT'S AND UPDATED HER ON PT'S CONDITION AND OF ADMIT TO HOSP ITAL 1644--SPOKE WITH DR. MERIDA, ACCEPTS PT FOR ADMIT. Impression Primary Impression: Pneumonia Additional Impressions: Sepsis Hypoxia COVID P.U.I. Elevated liver enzymes Disposition: 09 ADMITTED INPATIENT Condition: Improved Admissions Decision to Admit Reason: Admit from ER (General) Decision to Admit/Date: Jan 30, 2020 Time/Decision to Admit Time: 16:45 Departure-Patient Inst. Referrals: ALFIE CASTAÑEDA MD (PCP/Family) Primary Care Physician KAVEH JOHNSON DO Jan 30, 2020 16:14
[2020-01-30 16:20] LABS: BASOPHILS % (AUTO) 0 % (0-10); EOSINOPHILS # (AUTO) 0.2 10^3/uL (0.0-0.3); EOSINOPHILS % (AUTO) 1 % (0-10); HEMATOCRIT 38 % (40-54); HEMOGLOBIN 12.7 G/DL (13.3-17.7); LYMPHOCYTES # (AUTO) 1.4 X 10^3 (1.0-4.0); LYMPHOCYTES % (AUTO) 7 % (12-44); MEAN CORPUSCULAR HEMOGLOBIN 32 PG (25-34); MEAN CORPUSCULAR HGB CONC 33 G/DL (32-36); MEAN CORPUSCULAR VOLUME 96 FL (80-99); MEAN PLATELET VOLUME 10.3 FL (7.4-10.4); MONOCYTES # (AUTO) 0.9 X 10^3 (0.0-1.0); MONOCYTES % (AUTO) 4 % (0-12); NEUTROPHILS # (AUTO) 18.2 X 10^3 (1.8-7.8); NEUTROPHILS % (AUTO) 88 % (42-75); PLATELET COUNT 294 10^3/uL (130-400); RED CELL DISTRIBUTION WIDTH 14.5 % (10.0-14.5); WHITE BLOOD COUNT 20.7 10^3/uL (4.3-11.0)
[2020-01-30 16:33] LABS: ALBUMIN 3.2 GM/DL (3.2-4.5); CHLORIDE 104 MMOL/L (98-107); POTASSIUM 3.9 MMOL/L (3.6-5.0); SODIUM 137 MMOL/L (135-145)
[2020-01-30 16:34] LABS: CALCIUM 8.5 MG/DL (8.5-10.1)
[2020-01-30 16:35] LABS: GLUCOSE 123 MG/DL (70-105); TOTAL PROTEIN 6.9 GM/DL (6.4-8.2)
[2020-01-30 16:37] LABS: BILIRUBIN,TOTAL 0.7 MG/DL (0.1-1.0); CARBON DIOXIDE 24 MMOL/L (21-32)
[2020-01-30 16:39] LABS: ALKALINE PHOSPHATASE 338 U/L (40-136); CREATININE SERUM 1.09 MG/DL (0.60-1.30); GFR ESTIMATED > 60
[2020-01-30 16:40] LABS: BUN/CREATININE RATIO 17
[2020-01-30 16:42] LABS: ALANINE AMINOTRANSFERASE 216 U/L (0-55); MAGNESIUM 2.2 MG/DL (1.6-2.4)
[2020-01-30 16:43] LABS: CREATINE KINASE 26 U/L (30-200); FIBRIN DEGRADATION PRODUCTS 2.11 UG/ML (0.00-0.49); INR 1.3 (0.8-1.4); PROTHROMBIN TIME PATIENT 16.2 SEC (12.2-14.7)
[2020-01-30] MEDS ORDERED: cefTRIAXone FOR IV USE 1,000 MG in WATER (STERILE) FOR INJECTION 10 ML IV ONE (16:45)
[2020-01-30] MEDS ORDERED: AZITHROMYCIN INJECTION 500 MG in NS (IVPB) 250 ML IV ONE (16:45)
[2020-01-30] MEDS ORDERED: NS IV 1000 ML 1,000 ML IV SCH (16:48)
[2020-01-30 16:50] LABS: CREATINE KINASE MB 1.3 NG/ML (<6.6)
[2020-01-30 16:53] LABS: BAND NEUTROPHILS 16 %; BASOPHILS % (MANUAL) 0 %; EOSINOPHILS % (MANUAL) 1 %; LYMPHOCYTES % (MANUAL) 6 %; MONOCYTES % (MANUAL) 4 %; NEUTROPHILS % (MANUAL) 73 %; RBC MORPH NORMAL
--- NOTE | 2020-01-30 16:56 | Diagnostic Imaging Report ---
EXAMINATION: Chest 1 view HISTORY: Fever and shortness of breath. COMPARISON: 12/26/2016. FINDINGS: Median sternotomy wires are aligned. There are coronary artery bypass graft markers. Loop recorder projects over the heart. There is a new area of airspace opacification in the left mid zone. Right hemidiaphragm is elevated, unchanged. No pneumothorax. Heart size is stable. IMPRESSION: 1. New airspace opacity in left mid zone consistent with pneumonia. Dictated by: Dictated on workstation # [id number]
[2020-01-30 16:59] LABS: BILIRUBIN,URINE NEGATIVE (NEGATIVE); CLARITY,URINE CLEAR; COLOR,URINE ORANGE; GLUCOSE, URINE (UA) NEGATIVE (NEGATIVE); KETONES,URINE TRACE (NEGATIVE); LEUKOCYTE ESTERASE ,URINE TRACE (NEGATIVE); NITRITE,URINE NEGATIVE (NEGATIVE); PH,URINE 5.5 (5-9); PROTEIN,URINE 2+ (NEGATIVE)
[2020-01-30] MEDS ORDERED: ENOXAPARIN 100 MG/1 ML (LOVENOX) SYR SC ONE (17:00)
[2020-01-30 17:06] LABS: ERYTHROCYTE SEDIMENTATION RATE 75 MM/HR (0-30)
[2020-01-30 17:08] LABS: AMORPHOUS SEDIMENT,UR MOD AMOR URATES /LPF; BACTERIA,URINE TRACE /HPF; WBC,URINE 0-2 /HPF
[2020-01-30 17:45] VITALS: BP 149/85
--- NOTE | 2020-01-30 17:55 | NUR ---
V/S 1615 156/86- 89- 94% O2 4LN/C SAT 84 ON RA UPON ARRIVAL 1630 152/97-82-94% 1645 142/107-92-94% 1700 132/106-87-94% 1715 153/92-87-94% 1730 148/89-82-94% TEMP 100.7 ORAL
[2020-01-30 18:00] VITALS: BP 140/85
[2020-01-30 18:14] VITALS: BP 140/85
[2020-01-30 18:30] VITALS: BP 126/82
[2020-01-30] MEDS ORDERED: IBUPROFEN 800 MG (MOTRIN) TAB PO PRN (19:00)
[2020-01-30] MEDS ORDERED: CATHETER FLUSH 10 ML SYR IV PRN (19:00)
[2020-01-30 20:00] VITALS: BP 141/84
[2020-01-30] MEDS: NS IV 1000 ML 1,000 ML IV SCH (20:18)
[2020-01-30] MEDS ORDERED: RT-ALBUTEROL SULF 2.5 MG/3 ML PRE-MIX VIAL ONE (21:36)
[2020-01-31] VITALS: BP 157/92
[2020-01-31] MEDS: ACETAMINOPHEN 500 MG TAB (TYLENOL) PO PRN ×3 (01:30→19:31)
[2020-01-31 04:00] VITALS: BP 134/91
[2020-01-31 04:11] LABS: BASOPHILS % (AUTO) 0 % (0-10); EOSINOPHILS % (AUTO) 0 % (0-10); HEMATOCRIT 35 % (40-54); HEMOGLOBIN 11.6 G/DL (13.3-17.7); LYMPHOCYTES # (AUTO) 0.9 X 10^3 (1.0-4.0); LYMPHOCYTES % (AUTO) 5 % (12-44); MEAN CORPUSCULAR HEMOGLOBIN 32 PG (25-34); MEAN CORPUSCULAR HGB CONC 33 G/DL (32-36); MEAN CORPUSCULAR VOLUME 95 FL (80-99); MONOCYTES % (AUTO) 5 % (0-12); NEUTROPHILS # (AUTO) 18.9 X 10^3 (1.8-7.8); NEUTROPHILS % (AUTO) 91 % (42-75); PLATELET COUNT 284 10^3/uL (130-400); RED CELL DISTRIBUTION WIDTH 14.5 % (10.0-14.5); WHITE BLOOD COUNT 20.9 10^3/uL (4.3-11.0)
[2020-01-31 04:36] LABS: ALANINE AMINOTRANSFERASE 173 U/L (0-55); ALBUMIN 2.8 GM/DL (3.2-4.5); ALKALINE PHOSPHATASE 322 U/L (40-136); BILIRUBIN,TOTAL 0.9 MG/DL (0.1-1.0); BUN/CREATININE RATIO 18; CALCIUM 7.9 MG/DL (8.5-10.1); CARBON DIOXIDE 23 MMOL/L (21-32); CHLORIDE 105 MMOL/L (98-107); CREATININE SERUM 0.89 MG/DL (0.60-1.30); GFR ESTIMATED > 60; GLUCOSE 96 MG/DL (70-105); POTASSIUM 3.8 MMOL/L (3.6-5.0); SODIUM 136 MMOL/L (135-145); TOTAL PROTEIN 6.1 GM/DL (6.4-8.2)
[2020-01-31 05:29] LABS: ERYTHROCYTE SEDIMENTATION RATE 63 MM/HR (0-30)
[2020-01-31] MEDS: NS IV 1000 ML 1,000 ML IV SCH ×2 (06:26→15:45)
[2020-01-31] MEDS: ENOXAPARIN 100 MG/1 ML (LOVENOX) SYR SC SCH ×2 (06:26→17:16)
[2020-01-31] MEDS ORDERED: VANCOMYCIN INJECTION 1,000 MG in NS (IVPB) 250 ML IV SCH (06:45)
[2020-01-31] MEDS ORDERED: PHARMACY TO DOSE IV SCH (06:45)
--- NOTE | 2020-01-31 06:48 | Pulmonary Consultation ---
History of Present Illness History of Present Illness Date of Admission Allergies and Home Medications Allergies Coded Allergies: No Known Drug Allergies (Unverified , 11/17/16) Home Medications Acetaminophen 500 Mg Tablet, 1,000 MG PO PRN PRN for PAIN-MILD (1-4), (Reported) Aspirin 81 Mg Tablet.dr, 81 MG PO DAILY, (Reported) Atorvastatin Calcium 40 Mg Tablet, 40 MG PO HS, (Reported) Citalopram Hydrobromide 20 Mg Tablet, 20 MG PO DAILY, (Reported) Finasteride 5 Mg Tablet, 5 MG PO DAILY, (Reported) Lisinopril 5 Mg Tablet, 5 MG PO DAILY, (Reported) Loratadine 10 Mg Tablet, 10 MG PO DAILY, (Reported) Metoprolol Tartrate 25 Mg Tablet, 12.5 MG PO BID, (Reported) TAKES 1/2 OF A (25 MG) TABLET Multivitamin 1 Each Tablet, 1 TAB PO DAILY, (Reported) Past Ubwohhx-Vqibgb-Snporz Hx Past Med/Social Hx: Reviewed and Corrections made Patient Social History Alcohol Use: Denies Use Recreational Drug Use: No Smoking Status: Never a Smoker 2nd Hand Smoke Exposure: No Recent Foreign Travel: No Contact w/Someone Who Travel: No Recent Infectious Disease Expo: No Recent Hopitalizations: No (GI BLEED 11/2016) Physical Abuse: No Sexual Abuse: No Immunizations Up To Date Tetanus Booster (TDap): Less than 5yrs PED Vaccines UTD: No Date of Pneumonia Vaccine: Jul 01, 2013 Date of Influenza Vaccine: Jul 07, 2019 Seasonal Allergies Seasonal Allergies: Yes Past Medical History Surgeries: Yes (LINQ DEVICE) Abdominal, Cardiac Respiratory: No Currently Using CPAP: No Currently Using BIPAP: No Cardiac: Yes (HAS A LINQ TO MONITOR FOR SUSPECTED AFIB) Atrial Fibrillation, High Cholesterol, Hypertension Neurological: Yes Stroke Reproductive Disorders: No Sexually Transmitted Disease: No HIV/AIDS: No Genitourinary: Yes Benign Prostatic Hyperpl Gastrointestinal: Yes (RECENT HOSPITALIZATION FOR BLEEDING ULCER) Gastrointestinal Bleed, Ulcer Musculoskeletal: Yes Arthritis Endocrine: No HEENT: Yes Cataract Hearing Impairment: Hard of Hearing Cancer: Yes Skin Did You Recieve Any Treatments: Yes What Type of Treatment Did You: Surgical Intervention Psychosocial: Yes Depression Integumentary: No Blood Disorders: No Adverse Reaction/Blood Tranf: No (HAS HAD BLOOD WITH NO REACTION) Family Medical History Alcoholism G8 BROTHER, Onset:Unknown Cardiovascular disease 19 FATHER, , Age:89, Onset:Unknown G8 BROTHER, Onset:Unknown Completed stroke 19 MOTHER, , Age:86, Onset:Unknown FH: bladder cancer 19 MOTHER, , Age:86, Onset:Unknown FH: lupus G8 SISTER, , Age:75, Onset:Unknown FH: smoking G8 BROTHER, Onset:Unknown Parkinson's disease 19 MOTHER, , Age:86, Onset:Unknown CAD Over 55 Years Old Sepsis Event Evaluation Height, Weight, BMI Height: 6'0.00" Weight: 190lbs. 0.0oz. 86.300345yd; 25.96 BMI Method:Estimated Exam Exam Vital Signs Date Time Temp Pulse Resp B/P (MAP) Pulse Ox O2 Delivery O2 Flow Rate FiO2 01/31/20 06:36 36.4 01/31/20 04:00 37.0 01/31/20 04:00 85 20 134/91 (105) 94 Nasal Cannula 6.00 01/31/20 04:00 91 Nasal Cannula 6.00 01/31/20 01:30 38.4 01/31/20 01:00 105 01/31/20 00:00 91 Nasal Cannula 4.00 01/31/20 00:00 94 23 157/92 (113) 90 Nasal Cannula 6.00 01/30/20 22:02 Nasal Cannula 6.00 01/30/20 21:45 24 91 01/30/20 21:00 91 Nasal Cannula 4.00 01/30/20 20:27 36.2 01/30/20 20:00 91 Nasal Cannula 4.00 01/30/20 20:00 78 25 141/84 (103) 91 Nasal Cannula 4.00 01/30/20 19:30 75 31 92 Nasal Cannula 4.00 01/30/20 19:00 80 01/30/20 19:00 75 22 90 Nasal Cannula 4.00 01/30/20 18:30 78 25 126/82 (97) 90 Nasal Cannula 4.00 01/30/20 18:14 38.0 78 23 140/85 (103) 91 4.00 01/30/20 18:05 91 Nasal Cannula 4.00 01/30/20 18:00 79 13 140/85 (103) 91 Nasal Cannula 4.00 01/30/20 17:57 80 01/30/20 17:45 38.1 82 18 148/89 94 Nasal Cannula 4.00 01/30/20 17:45 79 13 149/85 (106) 90 Nasal Cannula 4.00 01/30/20 15:50 39.4 92 30 164/86 (112) 92 Room Air 2.00 I & O 01/31/20 07:00 Intake Total 1910 ml Output Total 875 ml Balance 1035 ml Height & Weight Height: 6'0.00" Weight: 190lbs. 0.0oz. 86.329694mm; 25.96 BMI Method:Estimated Respiratory: Normal Breath Sounds, No Accessory Muscle Use, No Respiratory Distress Cardiovascular: Regular Rate, Rhythm, No Edema, No JVD, No Murmur, Normal Peripheral Pulses Capillary Refill: Less Than 3 Seconds Gastrointestinal: non tender, soft Results Lab Laboratory Tests 01/30/20 15:55 01/31/20 03:45 Assessment/Plan Assessment/Plan Left pneumonia r/o aspiration with sepsis -Pt has had previous positive MRSA swabs -Change Abx to Vanco and Zosyn -Hernandez cultures -COVID is negative x 2 (one was negative per RN as out Pt) -Check Covid IGG - once negative then D/C isolation -Check urine strep and legionella ag -MRSA swab is pending Elevated liver enzymes -Monitor Anemia -Monitor ROSE JUAN DO Jan 31, 2020 06:48
[2020-01-31] MEDS: RT-ALBUTEROL INHALER HFA (VENTOLIN HFA) 8 GM IH SCH ×4 (07:00→19:21)
[2020-01-31] MEDS ORDERED: PIPERACILLIN/TAZOBACTAM 4.5 GM in NS (IVPB) 100 ML IV NR (07:00)
[2020-01-31] MEDS ORDERED: VANCOMYCIN 1,750 MG/NS 500 ML IVPB IV NR ×2 (07:01)
--- NOTE | 2020-01-31 07:10 | NUR ---
VANCOMYCIN PHARMACY TO DOSE: IBW 76.8 KG, SCr 1, CrCl 68 LOADING DOSE: 1,750 MG (DOSING WEIGHT 85.8 KG) MAIN DOSE: 1,250 MG Q 12 HRS VANCOMYCIN TROUGH DUE 02/02/20 @ 06:00 IF TROUGH > 20 HOLD 02/02/20 07:00 DOSE
[2020-01-31 08:00] VITALS: BP 150/89
[2020-01-31 08:57] LABS: MAGNESIUM 1.8 MG/DL (1.6-2.4); PHOSPHORUS 3.6 MG/DL (2.3-4.7)
[2020-01-31] MEDS ORDERED: AZITHROMYCIN 250 MG TAB (ZITHROMAX) PO SCH (09:00)
[2020-01-31 12:00] VITALS: BP 130/92
[2020-01-31] MEDS: PIPERACILLIN/TAZOBACTAM (BULK) 4.5 GM in NS (IVPB) 100 ML IV SCH ×2 (13:43→21:00)
--- NOTE | 2020-01-31 15:11 | History & Physical ---
HPI History of Present Illness: 74 yo male came to the ER due to fever, chills, shortness of breath. He started feeling bad about a week ago and had COVID testing outpatient that was negative (01/25, resulted 01/29), but he continued to feel worse so he came in. He feels slightly better this morning. He was very chilled all night. He is anxious to see his as soon as possible. Source: patient Exam Limitations: no limitations Date seen by provider: Jan 31, 2020 Time Seen by Provider: 09:20 Attending Physician Cassidy Zurita MD PCP Gregg Matthews MD Consult Date of Admission Jan 30, 2020 at 16:45 Home Medications Home Medications Reviewed patient Home Medication Reconciliation performed by pharmacy medication reconciliations orthotic and prosthetic technician and/or nursing. Patients Allergies have been reviewed. Allergies Coded Allergies: No Known Drug Allergies (Unverified , 11/17/16) QQL-Glfzih-Nitkow Hx Patient Social History Alcohol Use: Denies Use Recreational Drug Use: No Smoking Status: Never a Smoker 2nd Hand Smoke Exposure: No Recent Foreign Travel: No Contact w/other who traveled: No Recent Hopitalizations: No (GI BLEED 11/2016) Recent Infectious Disease Expo: No Immunizations Up To Date Tetanus Booster (TDap): Less than 5yrs Date of Pneumonia Vaccine: Jul 01, 2013 Date of Influenza Vaccine: Jul 07, 2019 Past Medical History PMHx: A fib BPH CAD History of CVA in 2016 SurgHx: Coronary artery bypass Family Medical History Significant Family History: CAD Over 55 Years Old Family History: Alcoholism G8 BROTHER, Onset:Unknown Cardiovascular disease 19 FATHER, , Age:89, Onset:Unknown G8 BROTHER, Onset:Unknown Completed stroke 19 MOTHER, , Age:86, Onset:Unknown FH: bladder cancer 19 MOTHER, , Age:86, Onset:Unknown FH: lupus G8 SISTER, , Age:75, Onset:Unknown FH: smoking G8 BROTHER, Onset:Unknown Parkinson's disease 19 MOTHER, , Age:86, Onset:Unknown Review of Systems (CHC) Constitutional: chills, fever, malaise, weakness EENTM: No nose congestion, No throat pain Respiratory: cough Cardiovascular: No chest pain Gastrointestinal: No abdominal pain, No constipation, No diarrhea; nausea; No vomiting Genitourinary: No dysuria Skin: No rash Reviewed Test Results Reviewed Test Results Lab Laboratory Tests Test 01/30/20 15:55 01/30/20 16:05 01/30/20 16:40 01/31/20 03:45 Range/Units White Blood Count 20.7 H 20.9 H 4.3-11.0 10^3/uL Red Blood Count 3.99 L 3.66 L 4.35-5.85 10^6/uL Hemoglobin 12.7 L 11.6 L 13.3-17.7 G/DL Hematocrit 38 L 35 L 40-54 % Mean Corpuscular Volume 96 95 80-99 FL Mean Corpuscular Hemoglobin 32 32 25-34 PG Mean Corpuscular Hemoglobin Concent 33 33 32-36 G/DL Red Cell Distribution Width 14.5 14.5 10.0-14.5 % Platelet Count 294 284 130-400 10^3/uL Mean Platelet Volume 10.3 10.0 7.4-10.4 FL Neutrophils (%) (Auto) 88 H 91 H 42-75 % Lymphocytes (%) (Auto) 7 L 5 L 12-44 % Monocytes (%) (Auto) 4 5 0-12 % Eosinophils (%) (Auto) 1 0 0-10 % Basophils (%) (Auto) 0 0 0-10 % Neutrophils # (Auto) 18.2 H 18.9 H 1.8-7.8 X 10^3 Lymphocytes # (Auto) 1.4 0.9 L 1.0-4.0 X 10^3 Monocytes # (Auto) 0.9 1.0 0.0-1.0 X 10^3 Eosinophils # (Auto) 0.2 0.0 0.0-0.3 10^3/uL Basophils # (Auto) 0.0 0.0 0.0-0.1 10^3/uL Neutrophils % (Manual) 73 % Lymphocytes % (Manual) 6 % Monocytes % (Manual) 4 % Eosinophils % (Manual) 1 % Basophils % (Manual) 0 % Band Neutrophils 16 % Blood Morphology Comment NORMAL Erythrocyte Sedimentation Rate 75 H 63 H 0-30 MM/HR Prothrombin Time 16.2 H 12.2-14.7 SEC INR Comment 1.3 0.8-1.4 Activated Partial Thromboplast Time 49 H 24-35 SEC D-Dimer 2.11 H 2.12 H 0.00-0.49 UG/ML Sodium Level 137 136 135-145 MMOL/L Potassium Level 3.9 3.8 3.6-5.0 MMOL/L Chloride Level 104 105 98-107 MMOL/L Carbon Dioxide Level 24 23 21-32 MMOL/L Anion Gap 9 8 5-14 MMOL/L Blood Urea Nitrogen 19 H 16 7-18 MG/DL Creatinine 1.09 0.89 0.60-1.30 MG/DL Estimat Glomerular Filtration Rate > 60 > 60 BUN/Creatinine Ratio 17 18 Glucose Level 123 H 96 70-105 MG/DL Lactic Acid Level 1.78 0.50-2.00 MMOL/L Calcium Level 8.5 7.9 L 8.5-10.1 MG/DL Corrected Calcium 9.1 8.9 8.5-10.1 MG/DL Magnesium Level 2.2 1.8 1.6-2.4 MG/DL Total Bilirubin 0.7 0.9 0.1-1.0 MG/DL Aspartate Amino Transf (AST/SGOT) 109 H 73 H 5-34 U/L Alanine Aminotransferase (ALT/SGPT) 216 H 173 H 0-55 U/L Alkaline Phosphatase 338 H 322 H 40-136 U/L Lactate Dehydrogenase 228 H 125-220 U/L Total Creatine Kinase 26 L 30-200 U/L Creatine Kinase MB 1.3 <6.6 NG/ML Myoglobin 49.0 10.0-92.0 NG/ML Troponin I < 0.028 <0.028 NG/ML C-Reactive Protein High Sensitivity 34.76 H 29.56 H 0.00-0.50 MG/DL B-Type Natriuretic Peptide 280.0 H <100.0 PG/ML Total Protein 6.9 6.1 L 6.4-8.2 GM/DL Albumin 3.2 2.8 L 3.2-4.5 GM/DL Procalcitonin 0.59 H <0.10 NG/ML Coronavirus (COVID-19)(PCR) Negative Negative Urine Color ORANGE Urine Clarity CLEAR Urine pH 5.5 5-9 Urine Specific [place] 1.020 1.016-1.022 Urine Protein 2+ H NEGATIVE Urine Glucose (UA) NEGATIVE NEGATIVE Urine Ketones TRACE H NEGATIVE Urine Nitrite NEGATIVE NEGATIVE Urine Bilirubin NEGATIVE NEGATIVE Urine Urobilinogen 1.0 < = 1.0 MG/DL Urine Leukocyte Esterase TRACE H NEGATIVE Urine RBC (Auto) 2+ H NEGATIVE Urine RBC 2-5 H /HPF Urine WBC 0-2 /HPF Urine Squamous Epithelial Cells NONE /HPF Urine Crystals NONE /LPF Urine Amorphous Sediment MOD [place] URATES H /LPF Urine Bacteria TRACE /HPF Urine Casts PRESENT /LPF Urine Coarse Granular Casts 5-10 H /LPF Urine Mucus NEGATIVE /LPF Urine Culture Indicated NO Phosphorus Level 3.6 2.3-4.7 MG/DL Radiology CXR 01/29: IMPRESSION: 1. New airspace opacity in left mid zone consistent with pneumonia. Physical Exam-(CHC) Physical Exam Vital Signs VS - Last 72 Hours, by Label 01/30/20 01/30/20 01/30/20 01/30/20 15:50 17:45 17:45 17:57 Temp 39.4 38.1 Pulse 92 79 82 80 Resp 30 13 18 B/P (MAP) 164/86 (112) 149/85 (106) 148/89 Pulse Ox 92 90 94 O2 Delivery Room Air Nasal Cannula Nasal Cannula O2 Flow Rate 2.00 4.00 4.00 01/30/20 01/30/20 01/30/20 01/30/20 18:00 18:05 18:14 18:30 Temp 38.0 Pulse 79 78 78 Resp 13 23 25 B/P (MAP) 140/85 (103) 140/85 (103) 126/82 (97) Pulse Ox 91 91 91 90 O2 Delivery Nasal Cannula Nasal Cannula Nasal Cannula O2 Flow Rate 4.00 4.00 4.00 4.00 01/30/20 01/30/20 01/30/20 01/30/20 19:00 19:00 19:30 20:00 Pulse 75 80 75 78 Resp 22 31 25 B/P (MAP) 141/84 (103) Pulse Ox 90 92 91 O2 Delivery Nasal Cannula Nasal Cannula Nasal Cannula O2 Flow Rate 4.00 4.00 4.00 01/30/20 01/30/20 01/30/20 01/30/20 20:00 20:27 21:00 21:45 Temp 36.2 Pulse 24 Pulse Ox 91 91 91 O2 Delivery Nasal Cannula Nasal Cannula O2 Flow Rate 4.00 4.00 01/30/20 01/31/20 01/31/20 01/31/20 22:02 00:00 00:00 01:00 Pulse 94 105 Resp 23 B/P (MAP) 157/92 (113) Pulse Ox 90 91 O2 Delivery Nasal Cannula Nasal Cannula Nasal Cannula O2 Flow Rate 6.00 6.00 4.00 01/31/20 01/31/20 01/31/20 01/31/20 01:30 04:00 04:00 04:00 Temp 38.4 37.0 Pulse 85 Resp 20 B/P (MAP) 134/91 (105) Pulse Ox 91 94 O2 Delivery Nasal Cannula Nasal Cannula O2 Flow Rate 6.00 6.00 01/31/20 01/31/20 01/31/20 01/31/20 06:36 06:47 07:10 08:00 Temp 36.4 Pulse 80 O2 Delivery Nasal Cannula Nasal Cannula O2 Flow Rate 6.00 6.00 FiO2 94 01/31/20 01/31/20 01/31/20 01/31/20 08:00 08:00 08:16 10:50 Temp 37.3 Pulse 85 Resp 20 B/P (MAP) 150/89 (109) Pulse Ox 90 O2 Delivery Nasal Cannula Nasal Cannula Nasal Cannula O2 Flow Rate 6.00 6.00 6.00 FiO2 93 01/31/20 01/31/20 01/31/20 01/31/20 11:57 12:00 12:54 13:43 Temp 38.6 37.4 Pulse 85 O2 Delivery Nasal Cannula O2 Flow Rate 6.00 01/31/20 01/31/20 13:44 14:21 Temp 37.4 O2 Delivery Nasal Cannula O2 Flow Rate 6.00 FiO2 93 Capillary Refill : Less Than 3 Seconds General Appearance: mild distress Respiratory: decreased breath sounds (left), accessory muscle use, other (unable to speak in full sentences) Cardiovascular: regular rate, rhythm, no murmur Gastrointestinal: normal bowel sounds, non tender, soft Extremities: no pedal edema Neurologic/Psychiatric: alert, normal mood/affect Skin: normal color, warm/dry Assessment/Plan Assessment/Plan Admission Status: Inpatient Order (span 2 midnights) Reason for Inpatient Admission: Sepsis with pneumonia and underlying CAD (1) Sepsis Status: Acute Assessment & Plan: Secondary to pneumonia. COVID antibody pending, PCR neg x 2 (01/25 and 01/29). Febrile with leukocytosis and tachypnea on admit. Zosyn and vancomycin. Appreciate Dr. Llamas's recommendations. (2) Pneumonia Status: Acute Assessment & Plan: Vanc and zoysn. On 6 lpm of supplemental oxygen from no baseline requirement. COVID PCR negative x 2, antibody pending. (3) Elevated liver enzymes Status: Acute Assessment & Plan: Trending down today, monitor. Concerning for viral etiology. (4) Elevated d-dimer Status: Acute Assessment & Plan: Therapeutic enoxaparin started. (5) DVT prophylaxis Status: Acute Assessment & Plan: On enoxaparin treatment dose. Clinical Quality Measures DVT/VTE Risk/Contraindication: Risk Factor Score Per Nursin RFS Level Per Nursing on Admit: 4+=Very High CASSIDY ZURITA MD Jan 31, 2020 15:11
[2020-01-31] MEDS ORDERED: MTP25TSR PO (15:14)
[2020-01-31] MEDS ORDERED: ATOR20TA66 PO (15:14)
[2020-01-31] MEDS ORDERED: FEXO-46 PO (15:16)
[2020-01-31] MEDS ORDERED: DOCU-143 PO (15:16)
[2020-01-31] MEDS ORDERED: FLUT9.9S NS (15:16)
--- NOTE | 2020-01-31 15:17 | NUR ---
SPOKE WITH THE PT (I CALLED HIS ROOM PHONE) AND HE WANTED ME TO CALL HIS MONROE SINCE SHE KNOWS HE MEDICATIONS. I CALLED HER AND WENT THRU THE EXT MED HISTORY TO COMPLETE THE MED REC MONROE WAS ABLE TO TELL ME ABOUT SONIA MEDICATIONS AND WHEN/ HOW HE TAKES EACH CLOPIDOGREL 75MG WAS FILLED IN DECEMBER 2019 #90/90DS HOWEVER THIS MED WAS DISCONTINUED ACCORDING TO THE PATIENTS OTC MEDS: FLONASE ASPIRIN 81 MTV FEXOFENADINE COLACE TYLENOL
[2020-01-31 16:00] VITALS: BP 134/88
[2020-01-31] MEDS ORDERED: cefTRIAXone 1,000 MG/SWFI 10 ML IV PUSH IV SCH ×2 (17:00)
[2020-01-31] MEDS: VANCOMYCIN 1250 MG/NS 250 ML IVPB IV SCH ×2 (19:25)
[2020-01-31 21:00] VITALS: BP 135/82
--- NOTE | 2020-01-31 22:23 | NUR ---
negative for covid antibodies after 2 negative swabs, order rec from dr fine to take pt out of isolation
[2020-02-01] VITALS (7 sets, daily range): BP systolic 148–176; BP diastolic 83–98
[2020-02-01] MEDS: NS IV 1000 ML 1,000 ML IV SCH ×3 (02:20→20:19)
[2020-02-01] MEDS: ACETAMINOPHEN 500 MG TAB (TYLENOL) PO PRN ×2 (03:00→11:00)
[2020-02-01 03:36] LABS: MAGNESIUM 2.1 MG/DL (1.6-2.4); PHOSPHORUS 2.9 MG/DL (2.3-4.7)
[2020-02-01] MEDS: PIPERACILLIN/TAZOBACTAM (BULK) 4.5 GM in NS (IVPB) 100 ML IV SCH ×3 (05:13→20:19)
[2020-02-01] MEDS: VANCOMYCIN 1250 MG/NS 250 ML IVPB IV SCH ×4 (06:38→18:04)
[2020-02-01] MEDS: ENOXAPARIN 100 MG/1 ML (LOVENOX) SYR SC SCH ×2 (06:38→17:06)
[2020-02-01] MEDS: RT-ALBUTEROL INHALER HFA (VENTOLIN HFA) 8 GM IH SCH ×4 (06:54→19:04)
[2020-02-01] MEDS: FINASTERIDE (PROSCAR) 5 MG TAB PO SCH (09:10)
[2020-02-01] MEDS: lisINopril 5 MG (PRINIVIL) TABLET PO SCH (09:10)
[2020-02-01] MEDS: ASPIRIN E.C. 81 MG (ECOTRIN) TAB PO SCH (09:10)
--- NOTE | 2020-02-01 11:00 | NUR ---
THIS RN TAKING OVER CARE OF PT AT THIS TIME. PT TRANSFERRED FROM ICU ROOM 3 TO ROOM 410 ON MED/SURG. PT ORIENTED TO ROOM AND WANTS TO LAY DOWN AT THIS TIME. CALL LIGHT IN PLACE. WILL CONTINUE TO MONITOR.
--- NOTE | 2020-02-01 12:07 | Progress Note - Hospitalist ---
Subjective HPI/CC On Admission Date Seen by Provider: Feb 01, 2020 Time Seen by Provider: 12:04 Subjective/Events-last exam Patient reports feeling better today mild cough nonproductive no chest pain no shortness of breath at rest denies night sweats chills or fever. Focused Exam Lactate Level 01/30/20 15:55: Lactic Acid Level 1.78 Time of Focused Exam: 16:49 Objective Exam Vital Signs Vital Signs Date Time Temp Pulse Resp B/P (MAP) Pulse Ox O2 Delivery O2 Flow Rate FiO2 02/01/20 11:10 38.0 86 24 161/83 (109) 91 Nasal Cannula 5.00 01/31/20 14:21 93 Capillary Refill : Less Than 3 Seconds General Appearance: No Apparent Distress Respiratory: Chest Non Tender, No Accessory Muscle Use, No Respiratory Distress, Other (Clear anteriorly faint wheeze posteriorly bilateral few basilar rales and rhonchi noted) Cardiovascular: Regular Rate, Rhythm, No Edema, No Gallop, No JVD, No Murmur, Normal Peripheral Pulses Gastrointestinal: Normal Bowel Sounds, No Organomegaly, No Pulsatile Mass, Non Tender, Soft Results/Procedures Lab Patient resulted labs reviewed. Assessment/Plan Assessment and Plan Assess & Plan/Chief Complaint 1. Pneumonia with sepsis latter resolved continue broad-spectrum antibiotics for now. 2. History of atrial fibrillation currently in sinus rhythm. Clinical Quality Measures DVT/VTE Risk/Contraindication: Risk Factor Score Per Nursin RFS Level Per Nursing on Admit: 4+=Very High KAYLIN DOLL MD Feb 01, 2020 12:07
--- NOTE | 2020-02-01 18:21 | NUR ---
PTS ASKING ABOUT PTS WBC COUNT. THERE HAD NOT BEEN LABS SINCE MONDAY MORNING. DR DOLL NOTIFIED AND HE SAID HE COULD HAVE CMP AND CBC ALONG WITH ORDER FOR LACTOBACILLUS 2 CAPS TID WITH MEALS.
[2020-02-01] MEDS: LACTOBACILLUS ACIDOPHILUS (PROBIOTIC) CAPSULE PO SCH (20:24)
--- NOTE | 2020-02-01 22:04 | Consultation-Cardiology ---
HPI-Cardiology Cardiology Consultation: Date of Consultation 02/01/20 Date of Admission Attending Physician Vasquez Moody MD Admitting Physician Gregg Matthews MD Consulting Physician Liliana KC MD HPI: Time Seen by a Provider: 11:00 Chief Complaint: Shortness of breath This is a 74-year-old gentleman who I know well from my cardiology clinic. I've been seeing him for the last few years. He has history of significant three- vessel CAD requiring CABG. He presented to me earlier in the year with a new onset cardiomyopathy. Coronary angiography showed severe anastomosis of the IQBAL to the LAD at the distal anastomotic site. I performed nuclear scanning which showed evidence of apical ischemia. We therefore performed balloon angioplasty of the distal anastomotic site of the IQBAL to the LAD with excellent results. He was discharged on aspirin and Plavix. Plavix was recently discontinued. Patient also has history of atrial fibrillation. He presented with complain of fever and shortness of breath. He had testing of COVID-19 very recently and results were negative. He continues to have fever. Denies any chest pain, cough or lower extremity swelling. He does have mild shortness of breath. The patient denies smoking. Family history is not pertinent. He is been treated for pneumonia. He was also found to have elevated liver enzymes. Review of Systems-Cardiology Review of Systems Constitutional: As described under HPI; No As described under HPI, No no symptoms reported, No chills; fever; No lightheadedness Eyes: No As described under HPI, No no symptoms reported, No blindness, No blurred vision, No contact lenses, No drainage, No decreased acuity, No foreign body sensation, No pain, No vision change Ears/Nose/Throat: No As described under HPI, No no symptoms reported, No chronic hearing loss, No ear discharge, No ear pain, No nasal drainage, No ulcerations Respiratory: No no symptoms reported; As described under HPI; No As described under HPI, No cough; orthopnea, shortness of breath; No SOB with excertion Cardiovascular: No no symptoms reported; As described under HPI; No As described under HPI, No chest pain, No edema, No irregular heart rate, No lightheadedness, No palpitations Gastrointestinal: No no symptoms reported, No As described under HPI, No abdomen distended, No abdominal pain, No blood streaked bowels, No constipation, No diarrhea, No nausea, No vomiting, No stool coloration changes Genitourinary: No As described under HPI, No burning, No dysuria, No discharge, No frequency, No flank pain, No hematuria, No urgency Skin: No rash, No skin related problems, No ulcerations Psychiatric/Neurological: No anxiety, No depression, No seizure, No focal weakness, No syncope Hematologic: No bleeding abnormalities ICR-Osmkxi-Aliejz Hx Patient Social History Alcohol Use: Denies Use Recreational Drug Use: No Smoking Status: Never a Smoker 2nd Hand Smoke Exposure: No Recent Foreign Travel: No Recent Infectious Disease Expo: No Hospitalization with Isolation: Denies Immunizations Up To Date Tetanus Booster (TDap): Less than 5yrs Date of Pneumonia Vaccine: Jul 01, 2013 Date of Influenza Vaccine: Jul 07, 2019 Past Medical History PMH As described under Assessment. Family Medical History Family History: Alcoholism G8 BROTHER, Onset:Unknown Cardiovascular disease 19 FATHER, , Age:89, Onset:Unknown G8 BROTHER, Onset:Unknown Completed stroke 19 MOTHER, , Age:86, Onset:Unknown FH: bladder cancer 19 MOTHER, , Age:86, Onset:Unknown FH: lupus G8 SISTER, , Age:75, Onset:Unknown FH: smoking G8 BROTHER, Onset:Unknown Parkinson's disease 19 MOTHER, , Age:86, Onset:Unknown Allergies and Home Medications Allergies Coded Allergies: No Known Drug Allergies (Unverified , 11/17/16) Home Medications Acetaminophen 500 Mg Tablet, 1,000 MG PO PRN PRN for PAIN-MILD (1-4), (Reported) Aspirin 81 Mg Tablet.dr, 81 MG PO DAILY, (Reported) Atorvastatin Calcium 20 Mg Tablet, 20 MG PO HS, (Reported) Citalopram Hydrobromide 20 Mg Tablet, 20 MG PO DAILY, (Reported) Docusate Sodium 100 Mg Capsule, 100 MG PO DAILY PRN for CONSTIPATION-1ST LINE, (Reported) Fexofenadine HCl 180 Mg Tablet, 180 MG PO DAILY, (Reported) Finasteride 5 Mg Tablet, 5 MG PO DAILY, (Reported) Fluticasone Propionate 9.9 Ml [place].susp, 1 SPRAY NS DAILY PRN for CONGESTION, (Reported) 1 SPRAY EACH NARE DAILY Lisinopril 5 Mg Tablet, 5 MG PO DAILY, (Reported) Metoprolol Succinate 25 Mg Tab.er.24h, 12.5 MG PO 1700, (Reported) TAKES IN THE EVENING WITH SUPPER Multivitamin 1 Each Tablet, 1 TAB PO DAILY, (Reported) Patient Home Medication List Home Medication List Reviewed: Yes Physical Exam-Cardiology Physical Exam Vital Signs/I&O 02/02/20 02/02/20 02/02/20 02/02/20 06:57 07:00 08:00 08:30 Temp 37.6 Pulse 91 86 Resp 20 B/P (MAP) 164/90 (114) Pulse Ox 92 88 94 O2 Delivery Nasal Cannula Nasal Cannula Nasal Cannula O2 Flow Rate 5.00 5.00 6.00 02/02/20 02/02/20 02/02/20 02/02/20 09:00 10:13 12:11 13:00 Temp 36.9 Pulse 74 77 Resp 17 B/P (MAP) 169/99 (122) Pulse Ox 93 94 O2 Delivery Nasal Cannula Nasal Cannula Nasal Cannula O2 Flow Rate 6.00 6.00 5.00 02/02/20 02/02/20 02/02/20 14:32 14:46 15:46 Temp 36.9 37.2 Pulse 77 78 Resp 18 B/P (MAP) 161/88 (112) Pulse Ox 92 92 92 O2 Delivery Nasal Cannula Nasal Cannula O2 Flow Rate 4.00 5.00 02/02/20 00:00 Intake Total 2442.5 ml Balance 2442.5 ml Capillary Refill : Less Than 3 Seconds Constitutional: appears stated age, AAO x 3, apparent distress, well-developed, well-nourished, other (febrile.) HEENT: PERRL; No discharge; hearing is well preserved, oral hygience is good; No ulceration, No xanthelasmas are seen Neck: No carotid bruit; carotid pulses are 2 + bilaterally Respiratory: chest is bilaterally symmetric, lungs clear to auscultation Cardiovascular: regular rate-rhythm, S1 and S2; No diastolic murmur, No systolic murmur Gastrointestinal: soft, audible bowel sounds; No spleenomegaly Rectal: deferred Extremities: normal range of motion, non-tender, normal inspection, pedal edema; No clubbing, No cyanosis, No significant edema Neurologic/Psychiatric: no motor/sensory deficits, alert, normal mood/affect, oriented x 3, power is 5/5 both on sides Skin: normal color, warm/dry Data Review Labs Laboratory Tests 02/02/20 05:54: White Blood Count 14.8H, Red Blood Count 3.63L, Hemoglobin 11.3L, Hematocrit 35L , Mean Corpuscular Volume 96, Mean Corpuscular Hemoglobin 31, Mean Corpuscular Hemoglobin Concent 32, Red Cell Distribution Width 14.9H, Platelet Count 335, Mean Platelet Volume 10.6H, Neutrophils (%) (Auto) 85H, Lymphocytes (%) (Auto) 8L, Monocytes (%) (Auto) 5, Eosinophils (%) (Auto) 2, Basophils (%) (Auto) 0, Neutrophils # (Auto) 12.6H, Lymphocytes # (Auto) 1.2, Monocytes # (Auto) 0.8, Eosinophils # (Auto) 0.3, Basophils # (Auto) 0.0, Sodium Level 142, Potassium Level 3.7, Chloride Level 109H, Carbon Dioxide Level 22, Anion Gap 11, Blood Urea Nitrogen 15, Creatinine 0.82, Estimat Glomerular Filtration Rate > 60, BUN/Creatinine Ratio 18, Glucose Level 122H, Calcium Level 8.4L, Corrected Calcium 9.4, Phosphorus Level 2.9, Magnesium Level 2.1, Total Bilirubin 0.8, Aspartate Amino Transf (AST/SGOT) 54H, Alanine Aminotransferase (ALT/SGPT) 132H, Alkaline Phosphatase 345H, Total Protein 6.2L, Albumin 2.8L, Vancomycin Level Trough 14.1 02/02/20 10:06: Blood Gas Puncture Site RT RAD, Blood Gas Patient Temperature 36.5, Arterial Blood pH 7.43, Arterial Blood Partial Pressure CO2 37, Arterial Blood Partial Pr essure O2 85, Arterial Blood HCO3 24, Arterial Blood Total CO2 25.3, Arterial Blood Oxygen Saturation 96, Arterial Blood Base Excess 0.2, Aleksandr Test YES-POS, Blood Gas Ventilator Setting NO, Blood Gas Inspired Oxygen 6 L Microbiology 02/02/20 C. difficile GDH Antigen & Toxins - Final, Complete 01/30/20 Blood Culture - Preliminary, Resulted No growth A/P-Cardiology Assessment/Admission Diagnosis Pneumonia, Acute respiratory failure, COVID-19 negative, Hepatitis, Mild acute on chronic congestive heart failure, CAD, Hyperlipidemia, Hypertension, Plan Pneumonia, acute respiratory failure, COVID-19 negative. However reviewing the chart and all the lab abnormalities, it does look like typical COVID-19 however COVID-19 has been tested twice and is still negative. He has been treated as pneumonia with IV antibiotics. Hepatitis, CT abdomen today revealed It to steatosis. No evidence of cirrhosis or portal hypertension. Defer to the primary team. Mild acute on chronic congestive heart failure, mildly elevated BNP. We will request an echocardiogram tomorrow. Patient does have history of ischemic cardiomyopathy. However I do not think that he is in florid congestive heart failure. For now I will not recommend diuretics. CAD, continue aspirin. Plavix discontinued recently. Hyperlipidemia, atorvastatin. Hypertension, continue outpatient medical therapy if required. Thank you for your consultation. Please call me if you have any questions. Cain Kc MD, FACP, FACC, FSCAI, FHRS, CCDS Interventional Cardiology Cardiac Electrophysiology Vascular Medicine and Endovascular Interventions Clinical Quality Measures DVT/VTE Risk/Contraindication: Risk Factor Score Per Nursin RFS Level Per Nursing on Admit: 4+=Very High Liliana KC MD Feb 01, 2020 22:04
[2020-02-02] VITALS (7 sets, daily range): BP systolic 153–169; BP diastolic 86–99
[2020-02-02] MEDS: ENOXAPARIN 100 MG/1 ML (LOVENOX) SYR SC SCH ×2 (05:15→18:16)
[2020-02-02] MEDS: PIPERACILLIN/TAZOBACTAM (BULK) 4.5 GM in NS (IVPB) 100 ML IV SCH ×3 (05:15→21:29)
[2020-02-02] MEDS ORDERED: TROUGH ORDER-PHARMACY XX ONE (06:00)
[2020-02-02] MEDS: NS IV 1000 ML 1,000 ML IV SCH ×3 (06:39→18:22)
[2020-02-02] MEDS: RT-ALBUTEROL INHALER HFA (VENTOLIN HFA) 8 GM IH SCH ×4 (06:56→19:00)
[2020-02-02 07:16] LABS: BASOPHILS % (AUTO) 0 % (0-10); EOSINOPHILS # (AUTO) 0.3 10^3/uL (0.0-0.3); EOSINOPHILS % (AUTO) 2 % (0-10); HEMATOCRIT 35 % (40-54); HEMOGLOBIN 11.3 G/DL (13.3-17.7); LYMPHOCYTES # (AUTO) 1.2 X 10^3 (1.0-4.0); LYMPHOCYTES % (AUTO) 8 % (12-44); MEAN CORPUSCULAR HEMOGLOBIN 31 PG (25-34); MEAN CORPUSCULAR HGB CONC 32 G/DL (32-36); MEAN CORPUSCULAR VOLUME 96 FL (80-99); MEAN PLATELET VOLUME 10.6 FL (7.4-10.4); MONOCYTES # (AUTO) 0.8 X 10^3 (0.0-1.0); MONOCYTES % (AUTO) 5 % (0-12); NEUTROPHILS # (AUTO) 12.6 X 10^3 (1.8-7.8); NEUTROPHILS % (AUTO) 85 % (42-75); PLATELET COUNT 335 10^3/uL (130-400); RED CELL DISTRIBUTION WIDTH 14.9 % (10.0-14.5); WHITE BLOOD COUNT 14.8 10^3/uL (4.3-11.0)
[2020-02-02 07:31] LABS: ALBUMIN 2.8 GM/DL (3.2-4.5); CHLORIDE 109 MMOL/L (98-107); POTASSIUM 3.7 MMOL/L (3.6-5.0); SODIUM 142 MMOL/L (135-145)
[2020-02-02 07:33] LABS: CALCIUM 8.4 MG/DL (8.5-10.1)
[2020-02-02 07:34] LABS: GLUCOSE 122 MG/DL (70-105); TOTAL PROTEIN 6.2 GM/DL (6.4-8.2)
[2020-02-02 07:35] LABS: CARBON DIOXIDE 22 MMOL/L (21-32)
[2020-02-02 07:36] LABS: BILIRUBIN,TOTAL 0.8 MG/DL (0.1-1.0)
[2020-02-02 07:37] LABS: ALKALINE PHOSPHATASE 345 U/L (40-136); CREATININE SERUM 0.82 MG/DL (0.60-1.30); GFR ESTIMATED > 60; PHOSPHORUS 2.9 MG/DL (2.3-4.7)
[2020-02-02 07:39] LABS: BUN/CREATININE RATIO 18
[2020-02-02 07:40] LABS: ALANINE AMINOTRANSFERASE 132 U/L (0-55); MAGNESIUM 2.1 MG/DL (1.6-2.4)
[2020-02-02 07:47] LABS: VANCOMYCIN,TROUGH 14.1 UG/ML (10.0-20.0)
[2020-02-02] MEDS: ASPIRIN E.C. 81 MG (ECOTRIN) TAB PO SCH (07:50)
[2020-02-02] MEDS: ACETAMINOPHEN 500 MG TAB (TYLENOL) PO PRN ×2 (07:51→18:15)
[2020-02-02] MEDS: lisINopril 5 MG (PRINIVIL) TABLET PO SCH (07:52)
[2020-02-02] MEDS: LACTOBACILLUS ACIDOPHILUS (PROBIOTIC) CAPSULE PO SCH ×3 (07:52→18:14)
--- NOTE | 2020-02-02 09:01 | NUR ---
RTYAS, SUGGESTED PT HAVE INCENTIVE SPIROMETER TO HELP HIM BREATH DEEPER, A 1 VIEW CHEST XRAY SINCE HE HAD NOT HAD ONE SINCE 01/30/20 AND ALSO RECOMMENDED IF HE DOESNT IMPROVE SOON AN ABG WOULD NEXT. Addendum: 02/02/20 at 0924 by NASIM D[address] RN DR DOLL NOTIFIED OF THE ABOVE AND SAID YES TO ORDERING IS AND CHEST XRAY.
[2020-02-02] MEDS: VANCOMYCIN 1250 MG/NS 250 ML IVPB IV SCH ×6 (09:43→21:21)
[2020-02-02] MEDS: FINASTERIDE (PROSCAR) 5 MG TAB PO SCH (09:44)
--- NOTE | 2020-02-02 10:10 | Diagnostic Imaging Report ---
Indication: Hypoxia, infiltrate. Comparison: 01/30/2020 Findings: Single view of the chest demonstrates stable areas of consolidation and infiltrate in the left midlung. There is continued bibasilar atelectasis. No large effusion seen. The heart is enlarged without pulmonary edema. There is no pneumothorax. Sternal wires midline. Impression: Stable consolidation and infiltrate in the mid left lung. No significant change. Dictated by: Dictated on workstation # [id number]
[2020-02-02 10:15] LABS: ABG BASE EXCESS 0.2 MMOL/L (-2.5-2.5); ABG OXYGEN SATURATION 96 % (94-100); ABG PCO2 37 MMHG (35-45); ABG PH 7.43 (7.37-7.43); ABG PO2 85 MMHG (79-93); ABG TCO2 25.3 MMOL/L (21.0-31.0)
[2020-02-02 10:17] LABS: ALLENS TEST YES-POS; INSPIRED O2 6 L; PATIENT TEMP 36.5; VENTILATOR NO
--- NOTE | 2020-02-02 10:29 | NUR ---
DURING ROUNDS DR DOLL ORDERED ABG, STOP IV FLUIDS, MELATONIN 3 MG AT HS AND C-DIFF CULTURE D/T HIS FREQUENT BOWEL MOVEMENTS.
--- NOTE | 2020-02-02 11:11 | Progress Note - Hospitalist ---
Subjective HPI/CC On Admission Date Seen by Provider: Feb 02, 2020 Time Seen by Provider: 10:00 Nurse called this morning stating that rest were therapist was concerned that the patient was still requiring 6 L and didn't appear to be doing any better. Did obtain a chest x-ray and an ABG which revealed stable left mid lung field in filtrates unchanged from previous x-ray from the . ABG on 6 L I believe revealed a PO2 in the mid 80s with no CO2 retention or acidosis. Patient reports he feels about the same there shortness of breath with minimal exertion but he has been able to sit up at the edge of the bed and appetite has been good. He denies chest pain. He has cough with minimal sputum production and denies night sweats chills or fever. Subjective/Events-last exam See above Focused Exam Lactate Level 01/30/20 15:55: Lactic Acid Level 1.78 Time of Focused Exam: 16:49 Objective Exam Vital Signs Vital Signs Date Time Temp Pulse Resp B/P (MAP) Pulse Ox O2 Delivery O2 Flow Rate FiO2 02/02/20 10:13 93 Nasal Cannula 6.00 02/02/20 07:00 91 02/02/20 04:42 37.4 22 159/86 (110) 01/31/20 14:21 93 Capillary Refill : Less Than 3 Seconds General Appearance: Anxious, Mild Distress Respiratory: No Accessory Muscle Use, No Respiratory Distress, Other (Few rales noted in the bases and left mid lung field with no wheezing or rhonchi mild tachypnea or respiratory rates 20 but not labored) Cardiovascular: Regular Rate, Rhythm, No Edema, No Gallop, No JVD, No Murmur, Normal Peripheral Pulses Gastrointestinal: Normal Bowel Sounds, No Organomegaly, No Pulsatile Mass, Non Tender, Soft Extremity: Normal Capillary Refill, Normal Inspection, Normal Range of Motion, Non Tender, No Calf Tenderness, No Pedal Edema Results/Procedures Lab Laboratory Tests 02/02/20 05:54 Patient resulted labs reviewed. Assessment/Plan Assessment and Plan Assess & Plan/Chief Complaint 1. Pneumonia with sepsis latter resolved continue broad-spectrum antibiotics for now but exam and history compatible for atypical pneumonia suspect virus and discussed with the patient and I believe at bedside that improvement was going to be slow. ABG stable on I believe 6 L per nasal cannula with stable chest x-ray. Considering lack of response and elevated liver function tests with obstructive picture I am concerned that pneumonia may be a postobstructive process and need to rule out neoplastic process involving the liver causing alkaline phosphatase elevation persistent out of proportion to ALTs in AST. Doubt common duct obstruction as total bilirubin remains normal and the patient has no GI tract symptoms with reasonable appetite. Earlier I given instructions to DC IV fluids but will resume them considering we'll be ordering CT chest and abdomen with contrast. 2. History of atrial fibrillation currently in sinus rhythm. Clinical Quality Measures DVT/VTE Risk/Contraindication: Risk Factor Score Per Nursin RFS Level Per Nursing on Admit: 4+=Very High KAYLIN DOLL MD Feb 02, 2020 11:11
[2020-02-02] MEDS ORDERED: HOLD METFORMIN - RECEIVED CONTRAST 20 ML VIAL IV SCH (11:45)
[2020-02-02] MEDS ORDERED: IOHEXOL 350 MG/ML 100 ML (OMNIPAQUE 350) VIAL IV ONE (11:45)
[2020-02-02] MEDS ORDERED: NS 100 ML (IVPB) BAG IV ONE (11:45)
--- NOTE | 2020-02-02 12:11 | NUR ---
DR DOLL ORDERED PT TO HAVE CT OF ABDOMEN AND PELVIS TO RULE OUT ANY OTHER ISSUES THAT MAY BE OCCURRING, ALONG WITH RESTARTING NS AT 100 ML/HR. PT AND NOTIFIED OF CHANGE AND OF CT BY THIS RN.
--- NOTE | 2020-02-02 12:57 | Diagnostic Imaging Report ---
PROCEDURE: CT chest and abdomen with contrast. TECHNIQUE: Multiple contiguous axial images were obtained through the chest and abdomen after the administration of intravenous contrast. Auto Exposure Controls were utilized during the CT exam to meet ALARA standards for radiation dose reduction. INDICATION: Pneumonia, elevated liver function tests, diarrhea. COMPARISON: Chest radiograph of earlier same day. FINDINGS: CT CHEST: Consolidations are present throughout the majority of the left upper lobe. There are patchy consolidations in the right upper, middle and left lower lobes as well. No endoluminal nodule in the trachea. Small left and trace right pleural effusions. No pneumothorax. Thyroid has a 1.7 cm cyst present which thyroid ultrasound should be considered for further assessment. No mediastinal, hilar or juxtaphrenic lymphadenopathy. Cardiomegaly is present with changes of CABG. Mild dilation of pulmonary trunk, may relate to chronic pulmonary hypertension. No concerning focal osseous lesions. CT ABDOMEN: Heterogeneous enhancement of the liver with some mild hypoattenuation on early phase of imaging. No focal hepatic lesion or nodularity to liver surface. The portal vein remains patent. The spleen and pancreas are normal. Adrenals are normal. No solid renal mass or obstructive uropathy. There is a simple cyst in the lower pole of the left kidney that requires no dedicated followup imaging. Normal caliber abdominal aorta has moderate atherosclerotic plaquing. No ascites or free intraperitoneal air. Appendix is normal where visualized. No bowel obstruction. IMPRESSION: 1. Multifocal pneumonia is most confluent in the left upper lobe. No pulmonary abscess. 2. Small left and trace right pleural effusion. 3. Mild heterogeneous appearance of liver could represent mild hepatic steatosis or hepatitis. No nodularity to liver surface to suggest cirrhosis and there are no features of portal hypertension. Dictated by: Dictated on workstation # [id number]
--- NOTE | 2020-02-02 15:18 | NUR ---
C DIFF SPECIMEN CAME BACK NEGATIVE. DR DOLL NOTIFIED OR RESULTS AND THAT CT RESULTS WERE IN WELL.
--- NOTE | 2020-02-02 17:11 | Cardiology Progress Note ---
Cardiology SOAP Progress Note Subjective: Feeling a little bit better than yesterday. Objective: I&O/Vital Signs 02/02/20 02/02/20 02/02/20 02/02/20 06:57 07:00 08:00 08:30 Temp 37.6 Pulse 91 86 Resp 20 B/P (MAP) 164/90 (114) Pulse Ox 92 88 94 O2 Delivery Nasal Cannula Nasal Cannula Nasal Cannula O2 Flow Rate 5.00 5.00 6.00 02/02/20 02/02/20 02/02/20 02/02/20 09:00 10:13 12:11 13:00 Temp 36.9 Pulse 74 77 Resp 17 B/P (MAP) 169/99 (122) Pulse Ox 93 94 O2 Delivery Nasal Cannula Nasal Cannula Nasal Cannula O2 Flow Rate 6.00 6.00 5.00 02/02/20 02/02/20 02/02/20 14:32 14:46 15:46 Temp 36.9 37.2 Pulse 77 78 Resp 18 B/P (MAP) 161/88 (112) Pulse Ox 92 92 92 O2 Delivery Nasal Cannula Nasal Cannula O2 Flow Rate 4.00 5.00 02/02/20 00:00 Intake Total 2442.5 ml Balance 2442.5 ml Weight (Pounds): 190 Weight (Ounces): 0.0 Weight (Calculated Kilograms): 86.454386 Constitutional: appears stated age, AAO x 3, apparent distress, well-developed, well-nourished, other (febrile.) Respiratory: chest is bilaterally symmetric, lungs clear to auscultation Cardiovascular: regular rate-rhythm, S1 and S2; No diastolic murmur, No systolic murmur Gastrointestional: soft, audible bowel sounds; No spleenomegaly Extremities: normal range of motion, non-tender, normal inspection, pedal edema; No clubbing, No cyanosis, No significant edema Neurologic/Psychiatric: no motor/sensory deficits, alert, normal mood/affect, oriented x 3, power is 5/5 both on sides Skin: normal color, warm/dry Results/Procedures: Labs Laboratory Tests 02/02/20 05:54: White Blood Count 14.8H, Red Blood Count 3.63L, Hemoglobin 11.3L, Hematocrit 35L , Mean Corpuscular Volume 96, Mean Corpuscular Hemoglobin 31, Mean Corpuscular Hemoglobin Concent 32, Red Cell Distribution Width 14.9H, Platelet Count 335, Mean Platelet Volume 10.6H, Neutrophils (%) (Auto) 85H, Lymphocytes (%) (Auto) 8L, Monocytes (%) (Auto) 5, Eosinophils (%) (Auto) 2, Basophils (%) (Auto) 0, Neutrophils # (Auto) 12.6H, Lymphocytes # (Auto) 1.2, Monocytes # (Auto) 0.8, Eosinophils # (Auto) 0.3, Basophils # (Auto) 0.0, Sodium Level 142, Potassium Level 3.7, Chloride Level 109H, Carbon Dioxide Level 22, Anion Gap 11, Blood Urea Nitrogen 15, Creatinine 0.82, Estimat Glomerular Filtration Rate > 60, BUN/Creatinine Ratio 18, Glucose Level 122H, Calcium Level 8.4L, Corrected Calcium 9.4, Phosphorus Level 2.9, Magnesium Level 2.1, Total Bilirubin 0.8, Aspartate Amino Transf (AST/SGOT) 54H, Alanine Aminotransferase (ALT/SGPT) 132H, Alkaline Phosphatase 345H, Total Protein 6.2L, Albumin 2.8L, Vancomycin Level Trough 14.1 02/02/20 10:06: Blood Gas Puncture Site RT RAD, Blood Gas Patient Temperature 36.5, Arterial Blood pH 7.43, Arterial Blood Partial Pressure CO2 37, Arterial Blood Partial Pressure O2 85, Arterial Blood HCO3 24, Arterial Blood Total CO2 25.3, Arterial Blood Oxygen Saturation 96, Arterial Blood Base Excess 0.2, Aleksandr Test YES-POS, Blood Gas Ventilator Setting NO, Blood Gas Inspired Oxygen 6 L Microbiology 02/02/20 C. difficile GDH Antigen & Toxins - Final, Complete 01/30/20 Blood Culture - Preliminary, Resulted No growth A/P: Assessment/Dx: Pneumonia, Acute respiratory failure, COVID-19 negative, Hepatitis, Mild acute on chronic congestive heart failure, CAD, Hyperlipidemia, Hypertension, Plan: Pneumonia, acute respiratory failure, COVID-19 negative. However reviewing the chart and all the lab abnormalities, it does look like typical COVID-19 however COVID-19 has been tested twice and is still negative. He has been treated as pneumonia with IV antibiotics. Hepatitis, CT abdomen today revealed It to steatosis. No evidence of cirrhosis or portal hypertension. Defer to the primary team. Mild acute on chronic congestive heart failure, mildly elevated BNP. We will request an echocardiogram tomorrow. Patient does have history of ischemic cardiomyopathy. However I do not think that he is in florid congestive heart failure. For now I will not recommend diuretics. CAD, continue aspirin. Plavix discontinued recently. Hyperlipidemia, atorvastatin. Hypertension, continue outpatient medical therapy if required. Thank you for your consultation. Please call me if you have any questions. Cain Kc MD, FACP, FACC, FSCAI, FHRS, CCDS Interventional Cardiology Cardiac Electrophysiology Vascular Medicine and Endovascular Interventions Focused Exam Time of Focused Exam: 16:49 Liliana KC MD Feb 02, 2020 17:11
[2020-02-02] MEDS: MELATONIN 3 MG TABLET PO SCH (21:21)
[2020-02-03 03:21] VITALS: BP 167/86
--- NOTE | 2020-02-03 03:55 | NUR ---
PT TECH REPORTED TO THIS RN THAT PT SEEMED MORE CONFUSED WHEN SHE ASSISTED HIM INTO THE BATHROOM. THIS RN WENT INTO PTs ROOM AND TRIED TO TALK TO PT. PT WAS VERY LETHARGIC AND HAVING DIFFICULTY ANSWERING QUESTIONS. PT WOULD ATTEMPT TO ANSWER QUESTION BUT WOULD FALL ASLEEP MID SENTENCE. THIS RN ASSESSED PTs VS AND NOTED VS TO BE STABLE AT THIS TIME. CALL WAS PLACED TO DR. DOLL AND UPDATE HIM ON PTs DECREASED LOC AND INCREASED CONFUSION. DR. DOLL STATED THAT HE BELIEVED IT WAS FROM PTs CURRENT INFECTION AND IF VS WERE STABLE TO JUST CONTINUE TO WATCH PT.
[2020-02-03] MEDS: PIPERACILLIN/TAZOBACTAM (BULK) 4.5 GM in NS (IVPB) 100 ML IV SCH ×3 (05:09→20:25)
[2020-02-03] MEDS: ENOXAPARIN 100 MG/1 ML (LOVENOX) SYR SC SCH ×2 (05:16→17:20)
[2020-02-03 05:28] LABS: BASOPHILS # (AUTO) 0.1 10^3/uL (0.0-0.1); BASOPHILS % (AUTO) 0 % (0-10); EOSINOPHILS # (AUTO) 0.3 10^3/uL (0.0-0.3); EOSINOPHILS % (AUTO) 3 % (0-10); HEMATOCRIT 34 % (40-54); LYMPHOCYTES # (AUTO) 1.5 X 10^3 (1.0-4.0); LYMPHOCYTES % (AUTO) 13 % (12-44); MEAN CORPUSCULAR HEMOGLOBIN 31 PG (25-34); MEAN CORPUSCULAR HGB CONC 32 G/DL (32-36); MEAN CORPUSCULAR VOLUME 96 FL (80-99); MEAN PLATELET VOLUME 9.8 FL (7.4-10.4); MONOCYTES # (AUTO) 0.6 X 10^3 (0.0-1.0); MONOCYTES % (AUTO) 6 % (0-12); NEUTROPHILS # (AUTO) 8.7 X 10^3 (1.8-7.8); NEUTROPHILS % (AUTO) 78 % (42-75); PLATELET COUNT 398 10^3/uL (130-400); RED CELL DISTRIBUTION WIDTH 14.9 % (10.0-14.5); WHITE BLOOD COUNT 11.2 10^3/uL (4.3-11.0)
[2020-02-03 05:41] LABS: ALBUMIN 2.8 GM/DL (3.2-4.5); CHLORIDE 107 MMOL/L (98-107); POTASSIUM 3.8 MMOL/L (3.6-5.0); SODIUM 140 MMOL/L (135-145)
[2020-02-03 05:42] LABS: CALCIUM 8.4 MG/DL (8.5-10.1)
[2020-02-03 05:43] LABS: GLUCOSE 89 MG/DL (70-105)
[2020-02-03 05:44] LABS: TOTAL PROTEIN 6.1 GM/DL (6.4-8.2)
[2020-02-03 05:45] LABS: BILIRUBIN,TOTAL 0.7 MG/DL (0.1-1.0); CARBON DIOXIDE 21 MMOL/L (21-32)
[2020-02-03 05:47] LABS: ALKALINE PHOSPHATASE 323 U/L (40-136); CREATININE SERUM 0.83 MG/DL (0.60-1.30); GFR ESTIMATED > 60; PHOSPHORUS 3.8 MG/DL (2.3-4.7)
[2020-02-03 05:48] LABS: BUN/CREATININE RATIO 18
[2020-02-03 05:50] LABS: ALANINE AMINOTRANSFERASE 134 U/L (0-55)
[2020-02-03] MEDS: RT-ALBUTEROL INHALER HFA (VENTOLIN HFA) 8 GM IH SCH ×4 (07:05→18:07)
--- NOTE | 2020-02-03 07:06 | Pulmonary Progress Note ---
Subjective Date Seen by a Provider: Feb 03, 2020 Time Seen by a Provider: 07:01 Subjective/Events-last exam No complications noted. Sepsis Event Evaluation Height, Weight, BMI Height: 6'0.00" Weight: 190lbs. 0.0oz. 86.045375gd; 25.96 BMI Method:Estimated Focused Exam Time of Focused Exam: 16:49 Exam Exam Vital Signs Date Time Temp Pulse Resp B/P (MAP) Pulse Ox O2 Delivery O2 Flow Rate FiO2 02/03/20 03:21 37.0 69 17 167/86 (113) 96 Nasal Cannula 5.00 02/03/20 01:00 64 02/02/20 23:55 36.7 71 18 165/86 (112) 94 Nasal Cannula 5.00 02/02/20 21:00 94 Nasal Cannula 6.00 02/02/20 20:22 36.9 77 20 153/87 (109) 92 Nasal Cannula 5.00 02/02/20 19:00 93 Nasal Cannula 4.00 02/02/20 19:00 80 02/02/20 18:45 37.2 02/02/20 18:15 38.0 02/02/20 15:46 37.2 78 18 161/88 (112) 92 Nasal Cannula 5.00 02/02/20 14:46 36.9 77 92 02/02/20 14:32 92 Nasal Cannula 4.00 02/02/20 13:00 36.9 77 17 169/99 (122) 94 Nasal Cannula 5.00 02/02/20 12:11 74 02/02/20 10:13 93 Nasal Cannula 6.00 02/02/20 09:00 Nasal Cannula 6.00 02/02/20 08:30 94 Nasal Cannula 6.00 02/02/20 08:00 37.6 86 20 164/90 (114) 88 Nasal Cannula 5.00 I & O 02/03/20 07:00 Intake Total 2112.5 ml Balance 2112.5 ml Height & Weight Height: 6'0.00" Weight: 190lbs. 0.0oz. 86.249016mf; 25.96 BMI Method:Estimated General Appearance: No Apparent Distress, Anxious Respiratory: No Accessory Muscle Use, No Respiratory Distress, Other (Few rales noted in the bases and left mid lung field with no wheezing or rhonchi mild tachypnea or respiratory rates 20 but not labored) Cardiovascular: Regular Rate, Rhythm, No Edema, No Gallop, No JVD, No Murmur, Normal Peripheral Pulses Capillary Refill: Less Than 3 Seconds Gastrointestinal: normal bowel sounds, non tender, soft Extremity: Normal Capillary Refill, Normal Inspection, Normal Range of Motion, Non Tender, No Calf Tenderness, No Pedal Edema Neurologic/Psychiatric: Alert Skin: Normal Color, Warm/Dry Lymphatic: No Adenopathy Results Lab Laboratory Tests 02/02/20 05:54 02/03/20 05:00 Assessment/Plan Assessment/Plan Left pneumonia r/o aspiration with sepsis -Repeat CT scan of chest reviewed. -No obvious mass. Very small bilateral pleural effusions. Not large enough for thoracentesis. -Pt will need repeat CT of chest 8 wks after discharge to ensure complete resolution -Pt has had previous positive MRSA swabs -Vanco and Zosyn -Hernandez cultures -COVID is negative - urine strep and legionella ag - negative -MRSA swab is pending Elevated liver enzymes -Monitor -Defer to hospitalist management. Anemia -Monitor ROSE JUAN DO Feb 03, 2020 07:06
[2020-02-03 07:56] VITALS: BP 172/98
[2020-02-03] MEDS: FINASTERIDE (PROSCAR) 5 MG TAB PO SCH (08:49)
[2020-02-03] MEDS: LACTOBACILLUS ACIDOPHILUS (PROBIOTIC) CAPSULE PO SCH ×3 (08:49→17:20)
[2020-02-03] MEDS: ASPIRIN E.C. 81 MG (ECOTRIN) TAB PO SCH (08:49)
[2020-02-03] MEDS: lisINopril 5 MG (PRINIVIL) TABLET PO SCH (08:50)
[2020-02-03] MEDS ORDERED: FUROSEMIDE 40 MG/4 ML INJ (LASIX) IVP ONE (09:45)
--- NOTE | 2020-02-03 09:47 | Progress Note - Hospitalist ---
Subjective HPI/CC On Admission Date Seen by Provider: Feb 03, 2020 Time Seen by Provider: 09:00 Nurse called this morning stating that rest were therapist was concerned that the patient was still requiring 6 L and didn't appear to be doing any better. Did obtain a chest x-ray and an ABG which revealed stable left mid lung field in filtrates unchanged from previous x-ray from the . ABG on 6 L I believe revealed a PO2 in the mid 80s with no CO2 retention or acidosis. Patient reports he feels about the same there shortness of breath with minimal exertion but he has been able to sit up at the edge of the bed and appetite has been good. He denies chest pain. He has cough with minimal sputum production and denies night sweats chills or fever. Subjective/Events-last exam Maintain on 3 liters of O2, does not use home O2 at home PT and OT and rehab ordered Dr. Kc consulted and ordered echocardiogram Will heplock IV fluid, states that he is swelling Abdominal ultrasound was ordered due to cirrhosis Bowels are loose Elevated liver enzymes of 63/134/323 suspicious for alcoholism WC 11.2 Pt very adamant that he wants to go home and he can't sleep in the hospital Review of Systems General: Fatigue Pulmonary: Dyspnea, Cough Cardiovascular: Edema Neurological: Weakness Focused Exam Time of Focused Exam: 16:49 Objective Exam Vital Signs Vital Signs Date Time Temp Pulse Resp B/P (MAP) Pulse Ox O2 Delivery O2 Flow Rate FiO2 02/03/20 19:17 37.3 76 18 157/80 (105) 94 Nasal Cannula 3.00 02/03/20 13:59 36 Capillary Refill : Less Than 3 Seconds General Appearance: No Apparent Distress, WD/WN, Chronically ill Respiratory: Crackles, Wheezing Cardiovascular: Regular Rate, Rhythm Neurologic/Psychiatric: Alert, Oriented x3, No Motor/Sensory Deficits, Normal Mood/Affect Results/Procedures Lab Laboratory Tests 02/03/20 05:00 Patient resulted labs reviewed. Assessment/Plan Assessment and Plan Assess & Plan/Chief Complaint Assessment: PNA Edema Elevated LFT's Cirrhosis Plan: HLIVF PT OT Wean O2 ECHO Lasix Abd USG Diagnosis/Problems Diagnosis/Problems (1) Pneumonia Status: Acute (2) Sepsis Status: Acute (3) Hypoxia Status: Acute (4) CAD (coronary artery disease) Status: Chronic (5) Elevated liver enzymes Status: Acute (6) Atrial fibrillation Status: Chronic (7) BPH (benign prostatic hyperplasia) Status: Chronic Clinical Quality Measures DVT/VTE Risk/Contraindication: Risk Factor Score Per Nursin RFS Level Per Nursing on Admit: 4+=Very High ALLEN MALLOY DO Feb 03, 2020 09:47
[2020-02-03] MEDS: VANCOMYCIN 1250 MG/NS 250 ML IVPB IV SCH ×4 (09:57→22:21)
[2020-02-03] MEDS: DIPHENOXYLATE/ATROPINE 2.5MG/0.025MG (LOMOTIL) TAB PO PRN ×2 (10:30→17:20)
[2020-02-03 11:45] VITALS: BP 170/91
--- NOTE | 2020-02-03 11:51 | NUR ---
Pt is [facility]. Cylinder Press Operator Helper provided prayer and Communion. Also notified house carpenter per pt request.
[2020-02-03 13:59] VITALS: BP 170/91
--- NOTE | 2020-02-03 14:08 | Physical Therapy Evaluation ---
PT Evaluation-General Medical Diagnosis Admission Date Jan 30, 2020 at 16:45 Medical Diagnosis: Hypoxia/fever/pneumonia Onset Date: Jan 30, 2020 Therapy Diagnosis Therapy Diagnosis: debility Height/Weight Height (Feet): 6 Height (Inches): 0.00 Weight (Pounds): 190 Weight (Ounces): 0.0 Precautions Precautions/Isolations: Fall Prevention, Standard Precautions Referral Physician: Peter Reason for Referral: Evaluation/Treatment Medical History Pertinent Medical History: Atrial Fib, Arthritis, CAD, CVA (2016) Current History ER secondary to fever and SOA x 1 week Reviewed History: Yes Social History Home: Single Level Current Living Status: Spouse Prior Prior Level of Function SCALE: Activities may be completed with or without assistive devices. 8-Qkebozfndx-fbnumqm completes the activity by him/herself with no assistance from a helper. 5-Set-up or Clean-up Assistance-helper sets up or cleans up; patient completes activity. Mccormick assists only prior to or following the activity. 4-Supervision or Touching Assistance-helper provides verbal cues and/or touching/steadying and/or contact guard assistance as patient completes activity. Assistance may be provided throughout the activity or intermittently. 3-Partial/Moderate Assistance-helper does LESS THAN HALF the effort. Mccormick lifts, holds or supports trunk or limbs, but provides less than half the effort. 2-Substantial/Maximal Assistance-helper does MORE THAN HALF the effort. Mccormick lifts or holds trunk or limbs and provides more than half the effort. 0-Udeiubqvo-ctcbdi does ALL the effort. Patient does none of the effort to complete the activity. Or, the assistance of 2 or more helpers is required for the patient to complete the activity. If activity was not attempted, code reason: 7-Patient Refused. 9-Not Applicable-not attempted and the patient did not perform the activity before the current illness, exacerbation or injury. 10-Not Attempted due to Environmental Limitations-(lack of equipment, weather restraints, etc.). 88-Not Attempted due to Medical Conditions or Safety Concerns. Bed Mobility: 6 Transfers (B,C,W/C): 6 Gait: 6 Stairs: 6 Indoor Mobility (Ambulation): Independent Stairs: Independent Prior Devices Use: None PT Evaluation-Current Subjective Patient agrees to PT. No c/o. Pain Numeric Pain Scale: 0-No Pain Location: No Pain Reported Objective Patient Orientation: Normal For Age Attachments: Oxygen (3.5L) ROM/Strength ROM Lower Extremities bilateral LE WFL Strength Lower Extremities 4+/5 grossly bilateral LE Integumentary/Posture Integumentary refer to nursing notes Bowel Incontinence: No Bladder Incontinence: No (toileted self without difficulty) Posture WFL Neuromuscular (Tone, Coordination, Reflexes) grossly intact Sensory Vision: Functional Hearing: Functional Sensation Right Lower Extremit: Intact Sensation Left Lower Extremity: Intact Transfers Sit to Stand (QC): 6 Gait Does the Patient Walk?: Yes Mode of Locomotion: Walk Anticipated Mode of Locomotion: Walk Walk 10 feet (QC): 6 Walk 50 ft with 2 Turns(QC): 6 Walk 150 ft (QC): 6 Distance: 250' Gait Assistive Device: None Comments/Gait Description safe and functional with no deviation Balance Sitting Static: Normal Sitting Dynamic: Normal Standing Static: Normal Standing Dynamic: Normal Treatment SAO2 93% on 4L O2 NC with activity (RN notified) Assessment/Needs 74 y.o. male, is currently at [facility] with all gross motor skills and does not require skilled therapy intervention. PT instructed patient and spouse to ambulate in room PRN and with nursing staff in hallway PRN. Rehab Potential: Fair PT Plan Treatment/Plan Treatment Plan: Discontinue PT, goals met Treatment Duration: Feb 03, 2020 Frequency: 1 time per week Estimated Hrs Per Day: .25 hour per day Patient and/or Family Agrees t: Yes Time/GCodes Time In: 1335 Time Out: 1350 Total Billed Treatment Time: 15 Total Billed Treatment 1 visit [facility] 15 min CEDRICK SANDOVLA PT Feb 03, 2020 14:07
--- NOTE | 2020-02-03 14:09 | Diagnostic Imaging Report ---
INDICATION: Cirrhosis. PROCEDURE: Ultrasound abdomen complete. TECHNIQUE: Multiple real-time grayscale images were obtained of the abdomen in various projections. FINDINGS: The liver is normal in size at 16 cm. No discrete liver mass is identified. Liver echotexture appears to be homogeneous. The portal vein is patent and shows normal direction of flow. Gallbladder is without stones or sludge. No wall thickening or biliary ductal dilatation is identified. The pancreas is obscured. The spleen is normal in size at 10.8 cm. Aorta is obscured. IVC is unremarkable. Kidneys are unremarkable apart from a 3.3 cm cyst involving the lower pole of the left kidney. No calculus or hydronephrosis is detected. There is no ascites. IMPRESSION: 1. Unremarkable appearance to the liver. No discrete liver mass is detected. 2. No evidence of cholelithiasis or acute cholecystitis. 3. 3.3 cm left renal cyst. Dictated by: Dictated on workstation # [id number]
--- NOTE | 2020-02-03 14:10 | NUR ---
SPO2 DROPPED TO 87% ON ROOM AIR AT REST. PLACED PT ON O2 AT 2LPM.SPO2 INCREASED TO 91%. Addendum: 02/03/20 at 1423 by CHANEL HOLBROOK RT Amended: Links added.
[2020-02-03 15:30] VITALS: BP 154/82
--- NOTE | 2020-02-03 15:45 | NUR ---
CM/SS: Visited with pt and spouse as to plan for discharge. Plan: Pt to return home with Oxygen. Summary: Pt in bed resting. Spouse is at the bedside. They report pt has not had oxygen in the past. This is the first time. [facility] selected by family for oxygen. Information is verified for spouse and her contact information. Information faxed to DME to process the request for oxygen. This worker has requested that a portable be delivered to the hospital and to contact the spouse as to making arrangements to deliver to the home. This worker will follow up.
--- NOTE | 2020-02-03 17:26 | Cardiology Progress Note ---
Cardiology SOAP Progress Note Subjective: Improved shortness of breath. Objective: I&O/Vital Signs 02/03/20 02/03/20 02/03/20 02/03/20 06:42 07:05 07:56 09:00 Temp 37.1 Pulse 76 79 Resp 18 B/P (MAP) 172/98 (122) Pulse Ox 95 92 93 O2 Delivery Nasal Cannula Nasal Cannula Nasal Cannula O2 Flow Rate 4.00 5.00 4.00 02/03/20 02/03/20 02/03/20 02/03/20 11:30 11:45 13:59 14:10 Temp 37.0 37.0 Pulse 62 77 Resp 18 B/P (MAP) 170/91 (117) Pulse Ox 90 94 90 91 O2 Delivery Nasal Cannula Nasal Cannula O2 Flow Rate 4.00 5.00 4.00 FiO2 36 02/03/20 02/03/20 14:15 15:30 Temp 37.1 Pulse 70 Resp 20 B/P (MAP) 154/82 (106) Pulse Ox 91 91 O2 Delivery Nasal Cannula Nasal Cannula O2 Flow Rate 2.00 2.00 02/03/20 00:00 Intake Total 1692.5 ml Balance 1692.5 ml Weight (Pounds): 190 Weight (Ounces): 0.0 Weight (Calculated Kilograms): 86.391487 Constitutional: appears stated age, AAO x 3, apparent distress, well-developed, well-nourished, other (febrile.) Respiratory: chest is bilaterally symmetric, lungs clear to auscultation Cardiovascular: regular rate-rhythm, S1 and S2; No diastolic murmur, No sy stolic murmur Gastrointestional: soft, audible bowel sounds; No spleenomegaly Extremities: normal range of motion, non-tender, normal inspection, pedal edema; No clubbing, No cyanosis, No significant edema Neurologic/Psychiatric: no motor/sensory deficits, alert, normal mood/affect, oriented x 3, power is 5/5 both on sides Skin: normal color, warm/dry Results/Procedures: Labs Laboratory Tests 02/03/20 05:00: White Blood Count 11.2H, Red Blood Count 3.58L, Hemoglobin 11.0L, Hematocrit 34L , Mean Corpuscular Volume 96, Mean Corpuscular Hemoglobin 31, Mean Corpuscular Hemoglobin Concent 32, Red Cell Distribution Width 14.9H, Platelet Count 398, Mean Platelet Volume 9.8, Neutrophils (%) (Auto) 78H, Lymphocytes (%) (Auto) 13, Monocytes (%) (Auto) 6, Eosinophils (%) (Auto) 3, Basophils (%) (Auto) 0, Neutrophils # (Auto) 8.7H, Lymphocytes # (Auto) 1.5, Monocytes # (Auto) 0.6, Eosinophils # (Auto) 0.3, Basophils # (Auto) 0.1, Sodium Level 140, Potassium Level 3.8, Chloride Level 107, Carbon Dioxide Level 21, Anion Gap 12, Blood Urea Nitrogen 15, Creatinine 0.83, Estimat Glomerular Filtration Rate > 60, BUN/Creatinine Ratio 18, Glucose Level 89, Calcium Level 8.4L, Corrected Calcium 9.4, Phosphorus Level 3.8, Magnesium Level 2.0, Total Bilirubin 0.7, Aspartate Amino Transf (AST/SGOT) 63H, Alanine Aminotransferase (ALT/SGPT) 134H, Alkaline Phosphatase 323H, Total Protein 6.1L, Albumin 2.8L, Monoscreen NEGATIVE Microbiology 02/02/20 C. difficile GDH Antigen & Toxins - Final, Complete 01/30/20 Blood Culture - Preliminary, Resulted No growth A/P: Assessment/Dx: Pneumonia, Acute respiratory failure, COVID-19 negative, Hepatitis, Mild acute on chronic congestive heart failure, CAD, Hyperlipidemia, Hypertension, Plan: Pneumonia, acute respiratory failure, COVID-19 negative. However reviewing the chart and all the lab abnormalities, it does look like typical COVID-19 however COVID-19 has been tested twice and is still negative. He has been treated as pneumonia with IV antibiotics. Hepatitis, CT abdomen today revealed It to steatosis. No evidence of cirrhosis or portal hypertension. Defer to the primary team. Mild acute on chronic congestive heart failure, mildly elevated BNP. Echocardiogram pending. Patient does have history of ischemic cardiomyopathy. However I do not think that he is in florid congestive heart failure. For now I will not recommend diuretics. CAD, continue aspirin. Plavix discontinued recently. Hyperlipidemia, atorvastatin. Hypertension, continue outpatient medical therapy if required. Thank you for your consultation. Please call me if you have any questions. Cain Kc MD, FACP, FACC, FSCAI, FHRS, CCDS Interventional Cardiology Cardiac Electrophysiology Vascular Medicine and Endovascular Interventions Focused Exam Time of Focused Exam: 16:49 Liliana KC MD Feb 03, 2020 17:26
[2020-02-03 19:17] VITALS: BP 157/80
[2020-02-03] MEDS ORDERED: amLODIPine 5 MG (NORVASC) TAB PO ONE (20:45)
[2020-02-04] VITALS: BP 150/89
[2020-02-04] MEDS: MELATONIN 3 MG TABLET PO SCH (03:20)
[2020-02-04 04:00] VITALS: BP 154/85
[2020-02-04 05:26] LABS: BASOPHILS # (AUTO) 0.1 10^3/uL (0.0-0.1); BASOPHILS % (AUTO) 1 % (0-10); EOSINOPHILS # (AUTO) 0.3 10^3/uL (0.0-0.3); EOSINOPHILS % (AUTO) 3 % (0-10); HEMATOCRIT 35 % (40-54); HEMOGLOBIN 11.3 G/DL (13.3-17.7); LYMPHOCYTES # (AUTO) 1.6 X 10^3 (1.0-4.0); LYMPHOCYTES % (AUTO) 15 % (12-44); MEAN CORPUSCULAR HEMOGLOBIN 31 PG (25-34); MEAN CORPUSCULAR HGB CONC 32 G/DL (32-36); MEAN CORPUSCULAR VOLUME 97 FL (80-99); MEAN PLATELET VOLUME 9.7 FL (7.4-10.4); MONOCYTES # (AUTO) 0.8 X 10^3 (0.0-1.0); MONOCYTES % (AUTO) 7 % (0-12); NEUTROPHILS # (AUTO) 7.6 X 10^3 (1.8-7.8); NEUTROPHILS % (AUTO) 74 % (42-75); PLATELET COUNT 449 10^3/uL (130-400); RED CELL DISTRIBUTION WIDTH 14.6 % (10.0-14.5); WHITE BLOOD COUNT 10.3 10^3/uL (4.3-11.0)
[2020-02-04 05:39] LABS: ALBUMIN 2.8 GM/DL (3.2-4.5); CHLORIDE 105 MMOL/L (98-107)
[2020-02-04 05:40] LABS: POTASSIUM 3.6 MMOL/L (3.6-5.0); SODIUM 141 MMOL/L (135-145)
[2020-02-04 05:41] LABS: CALCIUM 8.4 MG/DL (8.5-10.1)
[2020-02-04 05:42] LABS: GLUCOSE 97 MG/DL (70-105); TOTAL PROTEIN 6.2 GM/DL (6.4-8.2)
[2020-02-04 05:43] LABS: CARBON DIOXIDE 26 MMOL/L (21-32)
[2020-02-04 05:44] LABS: BILIRUBIN,TOTAL 0.6 MG/DL (0.1-1.0)
[2020-02-04 05:45] LABS: ALKALINE PHOSPHATASE 278 U/L (40-136); PHOSPHORUS 4.1 MG/DL (2.3-4.7)
[2020-02-04] MEDS: PIPERACILLIN/TAZOBACTAM (BULK) 4.5 GM in NS (IVPB) 100 ML IV SCH ×2 (05:45→12:40)
[2020-02-04] MEDS: ENOXAPARIN 100 MG/1 ML (LOVENOX) SYR SC SCH (05:45)
[2020-02-04 05:46] LABS: CREATININE SERUM 0.98 MG/DL (0.60-1.30); GFR ESTIMATED > 60
[2020-02-04 05:47] LABS: BUN/CREATININE RATIO 16
[2020-02-04 05:49] LABS: ALANINE AMINOTRANSFERASE 109 U/L (0-55)
[2020-02-04] MEDS: RT-ALBUTEROL INHALER HFA (VENTOLIN HFA) 8 GM IH SCH ×2 (07:25→10:43)
--- NOTE | 2020-02-04 07:29 | Pulmonary Progress Note ---
Subjective Time Seen by a Provider: 07:25 Subjective/Events-last exam No complications noted. Sepsis Event Evaluation Height, Weight, BMI Height: 6'0.00" Weight: 190lbs. 0.0oz. 86.067808cv; 25.96 BMI Method:Estimated Focused Exam Time of Focused Exam: 16:49 Exam Exam Vital Signs Date Time Temp Pulse Resp B/P (MAP) Pulse Ox O2 Delivery O2 Flow Rate FiO2 02/04/20 04:00 37.3 68 18 154/85 (108) 93 Nasal Cannula 3.00 02/04/20 00:00 37.1 70 18 150/89 (109) 93 Nasal Cannula 3.00 02/03/20 20:25 Nasal Cannula 02/03/20 19:17 37.3 76 18 157/80 (105) 94 Nasal Cannula 3.00 02/03/20 18:07 89 Nasal Cannula 2.00 02/03/20 15:30 37.1 70 20 154/82 (106) 91 Nasal Cannula 2.00 02/03/20 14:15 91 Nasal Cannula 2.00 02/03/20 14:10 91 4.00 02/03/20 13:59 37.0 77 90 36 02/03/20 11:45 37.0 62 18 170/91 (117) 94 Nasal Cannula 5.00 02/03/20 11:30 90 Nasal Cannula 4.00 02/03/20 09:00 93 Nasal Cannula 4.00 02/03/20 07:56 37.1 79 18 172/98 (122) 92 Nasal Cannula 5.00 I & O 02/04/20 07:00 Intake Total 3852.5 ml Output Total 1900 ml Balance 1952.5 ml Height & Weight Height: 6'0.00" Weight: 190lbs. 0.0oz. 86.391649ty; 25.96 BMI Method:Estimated General Appearance: No Apparent Distress, WD/WN, Chronically ill Respiratory: Crackles, Wheezing Cardiovascular: Regular Rate, Rhythm Capillary Refill: Less Than 3 Seconds Gastrointestinal: normal bowel sounds, non tender, soft Extremity: Normal Capillary Refill, Normal Inspection, Normal Range of Motion, Non Tender, No Calf Tenderness, No Pedal Edema Neurologic/Psychiatric: Alert, Oriented x3, No Motor/Sensory Deficits, Normal Mood/Affect Skin: Normal Color, Warm/Dry Lymphatic: No Adenopathy Results Lab Laboratory Tests 6/29/20 05:00 02/04/20 04:50 Assessment/Plan Assessment/Plan Left pneumonia r/o aspiration with sepsis -Pt will need repeat CT of chest 8 wks after discharge to ensure complete resolution -Previous + MRSA swabs -Repeat CXR -Vanco and Zosyn -Hernandez cultures -COVID is negative - urine strep and legionella ag - negative -MRSA swab is pending Elevated liver enzymes -Monitor -Defer to hospitalist management. Anemia -Monitor ROSE JUAN DO Feb 04, 2020 07:29
[2020-02-04 08:00] VITALS: BP 155/86
[2020-02-04] MEDS ORDERED: amLODIPine 5 MG (NORVASC) TAB PO SCH (09:00)
[2020-02-04] MEDS: VANCOMYCIN 1250 MG/NS 250 ML IVPB IV SCH ×2 (09:13)
[2020-02-04] MEDS: ASPIRIN E.C. 81 MG (ECOTRIN) TAB PO SCH (09:13)
[2020-02-04] MEDS: lisINopril 5 MG (PRINIVIL) TABLET PO SCH (09:13)
[2020-02-04] MEDS: FINASTERIDE (PROSCAR) 5 MG TAB PO SCH (09:13)
[2020-02-04] MEDS: LACTOBACILLUS ACIDOPHILUS (PROBIOTIC) CAPSULE PO SCH ×2 (09:13→12:44)
--- NOTE | 2020-02-04 09:48 | Diagnostic Imaging Report ---
INDICATION: Pneumonia followup. 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 There is a loop recorder at the left lower chest. There is an infiltrate in the central portion of left lung which is improved slightly since 02/02/2020. IMPRESSION: Improving infiltrate left midlung. Dictated by: Dictated on workstation # [id number]
[2020-02-04] MEDS ORDERED: AMLO5TAB9 PO (10:27)
[2020-02-04] MEDS ORDERED: CEFD300C3 PO (10:27)
--- NOTE | 2020-02-04 10:29 | D/C HH Face to Face Order ---
D/C Face to Face Orders Reconcile Patient Problems Problems Reviewed?: Yes Instructions for Patient Via [facility], Patient Instructions/FollowUp: Dr Matthews in 2 week Physician to follow Patient: Davidmaria del rosario Discharge Diet for Home: No Restrictions Patient Problems: New home o2 PNA Goals for Patient: Deuel and wean O2 Patient Data-Allergies,Ht & Wt Patient Allergies: Coded Allergies: No Known Drug Allergies (Unverified , 11/17/16) Height (Feet): 6 Height (Inches): 0.00 Weight (Pounds): 190 Weight (Ounces): 0.0 Home Health Need/Face to Face Date of Face to Face: Feb 04, 2020 Clinical Findings: Generalized weakness and fatigue, Shortness of breath I have seen Pt [id number]: Yes Discharged To: Home Diagnosis/Conditions: New O2 PNA Patient is Homebound due to: Shortness of breath/distress Homebound Status Due to the above stated illness, injury or surgical procedure (medical condition or diagnosis) and associated clinical findings, the patient is homebound because of his/her inability to leave home except with aid of a supportive device and/or person AND leaving the home requires a considerable and taxing effort or is medically contraindicated. Pt req the following assistanc: [facility] Nursing Orders Home Health Services Order: Nursing Services (O2 wean) Home Health Infusion Therapy Line Start Date: Jan 30, 2020 Certify Stmt I certify that this patient is under my care and that I, a nurse practitioner or a physician; a assistant sales director working with me, had a face to face encounter that - meets the physician face to face encounter requirements with this patient as dated. ALLEN MALLOY DO Feb 04, 2020 10:29
--- NOTE | 2020-02-04 10:30 | Discharge Summary ---
Discharge Summary Hospital Course Was the Problem List Reviewed?: Yes Problems/Dx: (1) Pneumonia Status: Acute (2) Sepsis Status: Acute (3) Hypoxia Status: Acute (4) CAD (coronary artery disease) Status: Chronic (5) Elevated liver enzymes Status: Acute (6) Atrial fibrillation Status: Chronic (7) BPH (benign prostatic hyperplasia) Status: Chronic Hospital Course Date of Admission: Jan 30, 2020 at 16:45 Admission Diagnosis : Family Physician/Provider: Gregg Matthews MD Date of Discharge: 02/04/20 Discharge Diagnosis: PNA, Hypoxia, CAD. elevated LFT's, COVID-19 negative Hospital Course: Hospital course: Pt had a lengthy hospital course, although it was uncomplicated, he was admitted, swabbed for COVID, treated with antibiotics for pneumonia along with nebulizer treatments and oxygen supplementation, sepsis was resolved with IV fluids, Pt had a consult with cardiology, his regular cardiol ogist, history of CAD, and he ultimately recovered very well, his lungs remainedclear at the day of discharge, he was able to participate in all PT. He was new oxygen supplementation on exertion of 2L so home health nurse will be consulted and Pt was deemed stable for discharge, all antibiotics were sent to the pharmacy. Labs and Pending Lab Test: Laboratory Tests 02/04/20 04:50: White Blood Count 10.3, Red Blood Count 3.62L, Hemoglobin 11.3L, Hematocrit 35L, Mean Corpuscular Volume 97, Mean Corpuscular Hemoglobin 31, Mean Corpuscular Hemoglobin Concent 32, Red Cell Distribution Width 14.6H, Platelet Count 449H, Mean Platelet Volume 9.7, Neutrophils (%) (Auto) 74, Lymphocytes (%) (Auto) 15, Monocytes (%) (Auto) 7, Eosinophils (%) (Auto) 3, Basophils (%) (Auto) 1, Neutrophils # (Auto) 7.6, Lymphocytes # (Auto) 1.6, Monocytes # (Auto) 0.8, Eosinophils # (Auto) 0.3, Basophils # (Auto) 0.1, Sodium Level 141, Potassium Level 3.6, Chloride Level 105, Carbon Dioxide Level 26, Anion Gap 10, Blood Urea Nitrogen 16, Creatinine 0.98, Estimat Glomerular Filtration Rate > 60, BUN/Creatinine Ratio 16, Glucose Level 97, Calcium Level 8.4L, Corrected Calcium 9.4, Phosphorus Level 4.1, Magnesium Level 2.0, Total Bilirubin 0.6, Aspartate Amino Transf (AST/SGOT) 37H, Alanine Aminotransferase (ALT/SGPT) 109H, Alkaline Phosphatase 278H, Total Protein 6.2L, Albumin 2.8L Microbiology 02/02/20 C. difficile GDH Antigen & Toxins - Final, Complete 01/30/20 Blood Culture - Preliminary, Resulted No growth Home Meds Active Cefdinir 300 Mg Capsule 300 Mg PO BID Amlodipine Besylate 5 Mg Tablet 5 Mg PO DAILY Reported Flonase Allergy Relief (Fluticasone Propionate) 9.9 Ml Husser.susp 1 Husser NS DAILY PRN 1 SPRAY EACH NARE DAILY Colace (Docusate Sodium) 100 Mg Capsule 100 Mg PO DAILY PRN Fexofenadine HCl 180 Mg Tablet 180 Mg PO DAILY Atorvastatin Calcium 20 Mg Tablet 20 Mg PO HS Metoprolol Succinate 25 Mg Tab.er.24h 12.5 Mg PO 1700 TAKES IN THE EVENING WITH SUPPER Tylenol Extra Strength (Acetaminophen) 500 Mg Tablet 1,000 Mg PO PRN PRN Citalopram HBr (Citalopram Hydrobromide) 20 Mg Tablet 20 Mg PO DAILY Finasteride 5 Mg Tablet 5 Mg PO DAILY Lisinopril 5 Mg Tablet 5 Mg PO DAILY Aspirin EC (Aspirin) 81 Mg Tablet.dr 81 Mg PO DAILY Multivitamins (Multivitamin) 1 Each Tablet 1 Tab PO DAILY Assessment/Pt Instructions [facility] 1 week Discharge Planning: <30 minutes discharge planning Discharge Instructions Discharge Diet: No Restrictions Discharge Physical Examination Vital Signs Vital Signs Date Time Temp Pulse Resp B/P (MAP) Pulse Ox O2 Delivery O2 Flow Rate FiO2 02/04/20 08:00 36.7 73 18 155/86 (109) 92 Nasal Cannula 3.00 02/03/20 13:59 36 General Appearance: No Apparent Distress, WD/WN Respiratory: Chest Non Tender, Lungs Clear, Normal Breath Sounds, No Accessory Muscle Use, No Respiratory Distress Cardiovascular: Regular Rate, Rhythm, No Edema, No Gallop, No JVD, No Murmur, Normal Peripheral Pulses Neurologic/Psychiatric: Alert, Oriented x3, No Motor/Sensory Deficits, Normal Mood/Affect Allergies: Coded Allergies: No Known Drug Allergies (Unverified , 11/17/16) Discharge Summary Date of Admission Jan 30, 2020 at 16:45 Date of Discharge Discharge Date: Feb 04, 2020 Discharge Diagnosis Assessment: PNA Edema Elevated LFT's Cirrhosis Plan: HLIVF PT OT Wean O2 ECHO Lasix Abd USG (1) Pneumonia Status: Acute (2) Sepsis Status: Acute (3) Hypoxia Status: Acute (4) CAD (coronary artery disease) Status: Chronic (5) Elevated liver enzymes Status: Acute (6) Atrial fibrillation Status: Chronic (7) BPH (benign prostatic hyperplasia) Status: Chronic Clinical Quality Measures DVT/VTE Risk/Contraindication: Risk Factor Score Per Nursin RFS Level Per Nursing on Admit: 4+=Very High ALLEN MALLOY DO Feb 04, 2020 10:30
--- NOTE | 2020-02-04 10:30 | NUR ---
provided prayer and Communion. Anointed by Fr Escobedo yesterday.
[2020-02-04 11:55] VITALS: BP 152/85
[2020-02-04 12:46] VITALS: BP 152/85
--- NOTE | 2020-02-04 16:31 | Cardiology Progress Note ---
Cardiology SOAP Progress Note Subjective: Significantly better. No significant cardiac complaints. Objective: I&O/Vital Signs 02/04/20 02/04/20 02/04/20 02/04/20 07:25 08:00 08:06 10:45 Temp 36.7 Pulse 73 Resp 18 B/P (MAP) 155/86 (109) Pulse Ox 90 92 90 O2 Delivery Nasal Cannula Nasal Cannula Nasal Cannula Nasal Cannula O2 Flow Rate 3.00 3.00 3.00 02/04/20 02/04/20 11:55 12:46 Temp 36.6 36.6 Pulse 76 76 Resp 18 18 B/P (MAP) 152/85 (107) 152/85 Pulse Ox 92 92 O2 Delivery Nasal Cannula Nasal Cannula O2 Flow Rate 3.00 3.00 02/04/20 00:00 Intake Total 1170 ml Output Total 1350 ml Balance -180 ml Weight (Pounds): 190 Weight (Ounces): 0.0 Weight (Calculated Kilograms): 86.423825 Constitutional: appears stated age, AAO x 3, well-developed, well-nourished, other (febrile.) Respiratory: chest is bilaterally symmetric, lungs clear to auscultation Cardiovascular: regular rate-rhythm, S1 and S2; No diastolic murmur, No systolic murmur Gastrointestional: soft, audible bowel sounds; No spleenomegaly Extremities: normal range of motion, non-tender, normal inspection, pedal edema ; No clubbing, No cyanosis, No significant edema Neurologic/Psychiatric: no motor/sensory deficits, alert, normal mood/affect, oriented x 3, power is 5/5 both on sides Skin: normal color, warm/dry Results/Procedures: Labs Laboratory Tests 02/04/20 04:50: White Blood Count 10.3, Red Blood Count 3.62L, Hemoglobin 11.3L, Hematocrit 35L, Mean Corpuscular Volume 97, Mean Corpuscular Hemoglobin 31, Mean Corpuscular Hemoglobin Concent 32, Red Cell Distribution Width 14.6H, Platelet Count 449H, Mean Platelet Volume 9.7, Neutrophils (%) (Auto) 74, Lymphocytes (%) (Auto) 15, Monocytes (%) (Auto) 7, Eosinophils (%) (Auto) 3, Basophils (%) (Auto) 1, Neutrophils # (Auto) 7.6, Lymphocytes # (Auto) 1.6, Monocytes # (Auto) 0.8, Eosinophils # (Auto) 0.3, Basophils # (Auto) 0.1, Sodium Level 141, Potassium Level 3.6, Chloride Level 105, Carbon Dioxide Level 26, Anion Gap 10, Blood Urea Nitrogen 16, Creatinine 0.98, Estimat Glomerular Filtration Rate > 60, BUN/Creatinine Ratio 16, Glucose Level 97, Calcium Level 8.4L, Corrected Calcium 9.4, Phosphorus Level 4.1, Magnesium Level 2.0, Total Bilirubin 0.6, Aspartate Amino Transf (AST/SGOT) 37H, Alanine Aminotransferase (ALT/SGPT) 109H, Alkaline Phosphatase 278H, Total Protein 6.2L, Albumin 2.8L Microbiology 02/02/20 C. difficile GDH Antigen & Toxins - Final, Complete 01/30/20 Blood Culture - Preliminary, Resulted No growth A/P: Assessment/Dx: Pneumonia, Acute respiratory failure, COVID-19 negative, Hepatitis, Mild acute on chronic congestive heart failure, CAD, Hyperlipidemia, Hypertension, Plan: Pneumonia, acute respiratory failure, COVID-19 negative. However reviewing the chart and all the lab abnormalities, it does look like typical COVID-19 however COVID-19 has been tested twice and is still negative. He has been treated as pneumonia with IV antibiotics. Significantly improved. Can be discharged home to follow-up in the cardiology office in 3-4 weeks. Hepatitis, CT abdomen today revealed It to steatosis. No evidence of cirrhosis or portal hypertension. Defer to the primary team. Mild acute on chronic congestive heart failure, mildly elevated BNP. Echocardiogram pending. Patient does have history of ischemic cardiomyopathy. However I do not think that he is in florid congestive heart failure. For now I will not recommend diuretics. CAD, continue aspirin. Plavix discontinued recently. Hyperlipidemia, atorvastatin. Hypertension, continue outpatient medical therapy if required. Thank you for your consultation. Please call me if you have any questions. Cain Kc MD, FACP, FACC, FSCAI, FHRS, CCDS Interventional Cardiology Cardiac Electrophysiology Vascular Medicine and Endovascular Interventions Focused Exam Time of Focused Exam: 16:49 Liliana KC MD Feb 04, 2020 16:31
== END 2020-02-04 12:55 | disposition home health service (06) | DRG 871 ==
LOC: EDUNIT# 15:47 → ER 15:48 → ICU 16:45 → 4TH 02-01 10:42
PROVIDERS: ADMIT Family Medicine; ATTEND Internal Medicine
DX: A41.9 Sepsis, unspecified organism (principal); J18.9 Pneumonia, unspecified organism; J96.01 Acute respiratory failure with hypoxia; I48.91 Unspecified atrial fibrillation; E78.00 Pure hypercholesterolemia, unspecified; D64.9 Anemia, unspecified; N40.0 Benign prostatic hyperplasia without lower urinary tract symptoms; M19.91 Primary osteoarthritis, unspecified site; K74.60 Unspecified cirrhosis of liver; H91.90 Unspecified hearing loss, unspecified ear; F32.9 Major depressive disorder, single episode, unspecified; Z20.828 Contact with and (suspected) exposure to other viral communicable diseases; Z86.73 Personal history of transient ischemic attack (TIA), and cerebral infarction without residual deficits; Z79.82 Long term (current) use of aspirin; Z85.828 Personal history of other malignant neoplasm of skin; I50.9 Heart failure, unspecified; K75.9 Inflammatory liver disease, unspecified; I25.5 Ischemic cardiomyopathy; Z79.2 Long term (current) use of antibiotics
CPT/HCPCS: 36415; 71045; 71260; 74160; 76700; 80053; 80202; 81000; 82550; 82553; 82805; 83605; 83615; 83735; 83874; 83880; 84100; 84145; 84484; 85007; 85025; 85027; 85379; 85610; 85652; 85730; 86141; 86308; 86769; 87040; 87324; 87449; 87635; 87899; 93005; 93041; 93306; 94640; 94664; 94760; 94761

== ENCOUNTER → 2020-03-12 | Outpatient (CLI) | payer MEDICARE ==
[~2020-03-12] MED LIST changes: +AMLO5TAB9 PO; +ATOR20TA66 PO; +CEFD300C3 PO; +DOCU-143 PO; +FEXO-46 PO; +FLUT9.9S NS; +MTP25TSR PO
== END ==
LOC: CARD 08:35
PROVIDERS: ATTEND Internal Medicine Interventional Cardiology
DX: I25.5 Ischemic cardiomyopathy (principal); I49.5 Sick sinus syndrome; I65.23 Occlusion and stenosis of bilateral carotid arteries; I48.0 Paroxysmal atrial fibrillation; I10 Essential (primary) hypertension; E78.5 Hyperlipidemia, unspecified; I25.10 Atherosclerotic heart disease of native coronary artery without angina pectoris; I07.1 Rheumatic tricuspid insufficiency
CPT/HCPCS: 93306

== ENCOUNTER → 2020-03-20 | Outpatient (CLI) | payer MEDICARE ==
[~2020-03-20] MED LIST changes: +HOLD METFORMIN - RECEIVED CONTRAST 20 ML VIAL IV SCH; +IOHEXOL 350 MG/ML 100 ML (OMNIPAQUE 350) VIAL IV ONE; +NS 100 ML (IVPB) BAG IV ONE
[2020-03-20 09:19] LABS: BUN/CREATININE RATIO 17; CREATININE SERUM 1.06 MG/DL (0.60-1.30); GFR ESTIMATED > 60
--- NOTE | 2020-03-20 10:57 | Diagnostic Imaging Report ---
PROCEDURE: CT chest with contrast only. TECHNIQUE: Multiple contiguous axial images were obtained through the chest after administration of intravenous contrast. Auto Exposure Controls were utilized during the CT exam to meet ALARA standards for radiation dose reduction. DATE: March 20, 2020. COMPARISON: Chest radiograph February 04, 2020. CT chest and abdomen February 02, 2020. INDICATION: 74-year-old male, hypoxemia. FINDINGS: There is a 4 mm right upper lobe pulmonary nodule with a surrounding lucency on axial image 56. This is stable since at least July 01, 2016 and is consistent with a benign etiology. There is an additional similar-appearing left lower lobe pulmonary nodule measuring 7 mm in size on axial image 99 which is also unchanged since at least June 2016 consistent with benign etiology. There are predominantly linear opacities in the lingula and more superior aspects of the left upper lobe which most likely relates to atelectasis. There is a 6 mm focal area of lucency in the peripheral aspect of the left lower lobe with surrounding slightly thickened rim of uniform thickness measuring 6 mm in size on axial image 108. This is not present on July 01, 2016. This is unchanged since February 02, 2020. There is airspace consolidation in the right lower lobe with air bronchograms which is also present on February 02, 2020. This is largely similar in appearance at this specific location compared to prior CT chest exam; however, the previously noted adjacent airspace consolidation in the right middle lobe is resolved. There is also significant improvement in the previously noted airspace consolidation in the lingula and left upper lobe. There is also improved aeration of the left lower lobe. There is resolution of the previously noted trace right pleural effusion. There is resolution of the previously noted left pleural effusion. There is no pneumothorax. The more central airways are patent. There is no identified pulmonary embolus. There are coronary artery calcifications and areas of atherosclerotic disease. The heart is not enlarged. There is no pericardial effusion. There is no identified abnormally enlarged mediastinal, hilar, or axillary lymph node meeting CT size criteria for adenopathy. There is low-attenuation left thyroid nodule measuring 16 mm in size on axial image 16 which is unchanged since the recent exam. There is a 5 mm low-attenuation right thyroid nodule. There is suspected wall thickening of the stomach diffusely. Additional limited evaluation of the imaged portions of the upper abdomen is unremarkable. There are median sternotomy wires. There is no identified acute bony abnormality. IMPRESSION: CT CHEST. 1. Significantly improved previous airspace consolidation in the right middle lobe, left upper lobe, lingula, left lower lobe with persistent nonspecific airspace consolidation in the right lower lobe. 2. Resolution of previously noted bilateral pleural effusions. 3. Diffuse wall thickening of the stomach. Nonspecific gastritis and malignancy is considered. Recommend correlation clinically and further evaluation with upper endoscopy is etiology if not known. 4. Bilateral thyroid nodules with the largest on the left measuring up to 16 mm in size. This nodule appears new since July 01, 2016. Dedicated thyroid ultrasound is recommended for further assessment. Dictated by: Dictated on workstation # [id number]
== END ==
LOC: RAD 08:43
PROVIDERS: ATTEND Nurse Practitioner Family
DX: J18.9 Pneumonia, unspecified organism (principal); K31.89 Other diseases of stomach and duodenum; J90 Pleural effusion, not elsewhere classified; E04.2 Nontoxic multinodular goiter
CPT/HCPCS: 36415; 71260; 82565; 84520